=== PATIENT | female | born 1975 | race Caucasian/White ===

== ENCOUNTER → 2019-12-03 | Outpatient (CLI) | payer BC ==
[2019-12-03 17:46] LABS: Basophils % (A) 0 %; Eosinophils # (A) 0.1 k/uL (0-0.7); Eosinophils % (A) 1 %; HCT 34.1 % (34.0-46.0); Hypochromasia Moderate; Lymphocytes % (A) 26 %; MCH 24.6 pg (25.0-35.0); MCHC 29.4 g/dL (31.0-37.0); MCV 83.9 fL (80.0-100.0); Mean Platelet Volume 6.5; Monocytes # (A) 0.3 k/uL (0-1.0); Monocytes % (A) 4 %; Neutrophils % (A) 66 %; Platelet Count 435 k/uL (150-450); RBC 4.07 m/uL (3.80-5.40); RDW 14.6 % (11.5-15.5); WBC 7.6 k/uL (3.8-10.6)
[2019-12-03 17:54] LABS: ALT 6 U/L (4-34); AST 13 U/L (14-36); African American GFR (CKD) >90 (>60 ml/min/1.73 sqM); Albumin 3.3 g/dL (3.5-5.0); Alkaline Phosphatase 93 U/L (38-126); Anion Gap 7 mmol/L; Blood Urea Nitrogen 12 mg/dL (7-17); C Reactive Protein 76.7 mg/L (<10.0); Calcium 8.8 mg/dL (8.4-10.2); Carbon Dioxide 30 mmol/L (22-30); Chloride 101 mmol/L (98-107); Creatine Kinase 20 U/L (30-135); Globulin 3.3 g/dL; Glucose 103 mg/dL (74-99); LDH 327 U/L (313-618); Magnesium 2.1 mg/dL (1.6-2.3); Non-African American GFR(CKD) >90 (>60 ml/min/1.73 sqM); Sodium 138 mmol/L (137-145); Total Bilirubin 0.2 mg/dL (0.2-1.3); Total Protein 6.6 g/dL (6.3-8.2); Uric Acid 2.8 mg/dL (3.7-7.4)
[2019-12-03 18:07] LABS: Creatine Kinase MB <0.2 ng/mL (0.0-2.4); Troponin I <0.012 ng/mL (0.000-0.034)
[2019-12-03 18:08] LABS: T4, Free (Free Thyroxine) 0.86 ng/dL (0.78-2.19)
[2019-12-04 00:36] LABS: Hemoglobin A1C 5.1 % (4.0-6.0)
[2019-12-04 01:50] LABS: Rheumatoid Factor, Qnt 13 IU/mL (0-15)
[2019-12-04 01:59] LABS: Folate, Serum 9.3 ng/mL
[2019-12-04 06:35] LABS: DNA Double-Stranded POSITIVE (NEGATIVE)
[2019-12-04 23:36] LABS: % Iron Saturation 4.27 (12.00-45.00)
== END | disposition home or self-care (01) ==
LOC: LABWHC1 17:01
PROVIDERS: ATTEND Family Medicine
DX: D64.9 Anemia, unspecified (principal); R55 Syncope and collapse; M79.89 Other specified soft tissue disorders; L03.90 Cellulitis, unspecified; M25.473 Effusion, unspecified ankle; K50.90 Crohn's disease, unspecified, without complications; Z79.899 Other long term (current) drug therapy
CPT/HCPCS: 36415; 80053; 82306; 82533; 82550; 82553; 82607; 82728; 82746; 83036; 83540; 83550; 83615; 83735; 83880; 84439; 84443; 84484; 84550; 85025; 85379; 86038; 86039; 86140; 86225; 86431

== ENCOUNTER → 2019-12-05 | Outpatient (CLI) | payer BC ==
[2019-12-05 10:31] LABS: Chol/HDL Ratio 3.26; LDL Cholesterol,Calculated 59.6 mg/dL (0.0-131.0); VLDL Calculation 17.4 mg/dL (5.00-40.00)
[2019-12-05 17:15] LABS: Appearance,Urine Clear (Clear); Bilirubin,Urine Negative (Negative); Blood,Urine Negative (Negative); Color,Urine Yellow; Glucose,Urine (UA) Negative (Negative); Hyaline Casts,Urine 1 /lpf (0-2); Ketones,Urine Negative (Negative); Leukocyte Esterase,Urine Small (Negative); Mucus,Urine Many /hpf; Nitrite,Urine Negative (Negative); Protein,Urine Trace (Negative); RBC,Urine 1 /hpf (0-5); Specific Gravity,Urine 1.028 (1.001-1.035); Squamous Epithelial Cell,Urine 1 /hpf (0-4); Urobilinogen,Urine <2.0 mg/dL (<2.0); WBC,Urine 6 /hpf (0-5)
== END | disposition home or self-care (01) ==
LOC: LABWHC1 07:03
PROVIDERS: ATTEND Family Medicine
DX: K50.90 Crohn's disease, unspecified, without complications (principal); L03.90 Cellulitis, unspecified; R55 Syncope and collapse; M25.473 Effusion, unspecified ankle; M79.89 Other specified soft tissue disorders; Z79.899 Other long term (current) drug therapy
CPT/HCPCS: 36415; 80061; 81001; 87086

== ENCOUNTER → 2019-12-10 | Outpatient (CLI) | payer BC ==
--- NOTE | 2019-12-11 17:00 | ECHOF ---
Referral Reason:R55.9 syncope MEASUREMENTS -------- HEIGHT: 170.2 cm WEIGHT: 64.4 kg BP: 99/55 IVSd: 1.0 cm (0.6 - 1.1) LVIDd: 4.4 cm (3.9 - 5.3) LVPWd: 1.0 cm (0.6 - 1.1) IVSs: 1.3 cm LVIDs: 3.2 cm LVPWs: 1.4 cm LA Diam: 3.0 cm (2.7 - 3.8) RVIDd: 2.6 cm (< 3.3) LAESV Index (A-L): 14.79 ml/m Ao Diam: 3.1 cm (2.0 - 3.7) AV Cusp: 1.9 cm (1.5 - 2.6) MV E Edgard: 0.77 m/s MV DecT: 205 ms MV A Edgard: 0.48 m/s MV E/A Ratio: 1.59 RAP: 5.00 mmHg RVSP: 21.98 mmHg FINDINGS -------- Sinus rhythm. This was a technically good study. The left ventricular size is normal. Left ventricular wall thickness is normal. Overall left vent ricular systolic function is normal with, an EF between 55 - 60 %. The right ventricle is normal in size. Normal LA size by volume 22+/-6 ml/m2. The right atrium is normal in size. Interatrial and interventricular septum intact. The aortic valve is trileaflet and appears structurally normal. The mitral valve is normal. Mild tricuspid regurgitation present. Right ventricular systolic pressure is normal at < 35 mmHg. Trace/mild (physiologic) pulmonic regurgitation. The aortic root size is normal. Normal inferior vena cava with normal inspiratory collapse consistent with estimated right atrial pre ssure of 5 mmHg. There is no pericardial effusion. CONCLUSIONS -------- 1. Sinus rhythm. 2. This was a technically good study. 3. The left ventricular size is normal. 4. Left ventricular wall thickness is normal. 5. Overall left ventricular systolic function is normal with, an EF between 55 - 60 %. 6. The right ventricle is normal in size. 7. Normal LA size by volume 22+/-6 ml/m2. 8. The right atrium is normal in size. 9. Interatrial and interventricular septum intact. 10. The aortic valve is trileaflet and appears structurally normal. 11. The mitral valve is normal. 12. Mild tricuspid regurgitation present. 13. Right ventricular systolic pressure is normal at < 35 mmHg. 14. Trace/mild (physiologic) pulmonic regurgitation. 15. The aortic root size is normal. 16. Normal inferior vena cava with normal inspiratory collapse consistent with estimated right atrial pressure of 5 mmHg. 17. There is no pericardial effusion. [employer]MENT [employer] ATTORNEY: Effie Gregg RDCS
== END | disposition home or self-care (01) ==
LOC: RADECHMAIN 12:02
PROVIDERS: ATTEND Family Medicine
DX: I07.1 Rheumatic tricuspid insufficiency (principal); I37.1 Nonrheumatic pulmonary valve insufficiency; R00.0 Tachycardia, unspecified; R00.1 Bradycardia, unspecified
CPT/HCPCS: 93225; 93226; 93306

== ENCOUNTER 2019-12-17 11:06 | Day surgery (SDC) | payer BC ==
[2019-12-15 13:49] VITALS: BMI 21.9
[~2019-12-17 11:06] MED LIST: LACTATED RINGERS 1,000 ML IV SCH; LIDOCAINE 1% (10MG/ML) FOR IV START INTRADERMA PRN
[2019-12-17 11:25] VITALS: RESP 18; TEMP 97
[2019-12-17] MEDS ORDERED: PROPOFOL 10 MG/ML 20 ML VIAL IV ONE (11:56)
--- NOTE | 2019-12-17 12:11 | P.PCN ---
Date of Procedure: 12/17/19 Procedure(s) Performed: BRIEF HISTORY: Patient is a 44-year-old pleasant white female scheduled for an elective colonoscopy as a part of rectal bleeding and diarrhea for the last 2 years duration. She was seen by GI in [place] about a year ago and had a colonoscopy in December 2018 and was diagnosed with Crohn's colitis. She was treated with mesalamine with no help. She was recommended Biologics but somehow given a stat. In the meantime she'll continue to have persistent symptoms and hence she is here for a repeat colonoscopy and further management PROCEDURE PERFORMED: Colonoscopy with biopsy. PREOPERATIVE DIAGNOSIS: Chronic diarrhea/rectal bleeding and history of Crohn's colitis diagnosed in December 2018. IV sedation per Anesthesia. PROCEDURE: After informed consent was obtained, the patient, was brought into the endoscopy unit. IV sedation was administered by Anesthesia under continuous monitoring. Digital rectal examination was normal. Initially the Olympus CF-160 flexible video colonoscope was then inserted in the rectum, gradually advanced into the transverse colon and further advancement was not possible because of the strictured this area. The scope was removed pediatric colonoscope the rectum and gradually advanced to the transverse colon and despite multiple attempts I was not able to traverse the stricture in the mid transverse colon. Careful examination was performed as the scope was gradually being withdrawn. There was active colitis with stricture noted in the mid transverse colon with serpiginous ulcerations and biopsies were done from this area. There were segmental areas of colitis with ulcerations erythema and friability of the mucosa involving the descending colon 40-57 m from the anal verge, distal sigmoid colon and the distal rectum with normal appearing intervening mucosa and multiple biopsies were obtained from this area. Retroflexion was performed in the rectum and no lesions were seen. The patient tolerated the procedure well. IMPRESSION: Several areas of segmental colitis noted in the distal sigmoid colon, proximal ascending colon and mid transverse colon with tight transverse colon stricture. There are areas of deep serpiginous ulceration with erythema and friability of the mucosa in the involved segments of the colitis consistent with Crohn's colitis RECOMMENDATIONS: Findings of this examination were discussed with the patient as well as a family. She'll be seen in office in a week from now for further management.
[2019-12-17 12:31] VITALS: BP 93/61; PULSE 72
== END 2019-12-17 12:50 | disposition home or self-care (01) ==
LOC: ORWHC2ENDO 11:06
PROVIDERS: ATTEND Internal Medicine Gastroenterology
DX: K50.111 Crohn's disease of large intestine with rectal bleeding (principal); K56.699 Other intestinal obstruction unspecified as to partial versus complete obstruction; K63.5 Polyp of colon; R55 Syncope and collapse; D64.9 Anemia, unspecified; F17.210 Nicotine dependence, cigarettes, uncomplicated; Z79.899 Other long term (current) drug therapy; Z97.2 Presence of dental prosthetic device (complete) (partial)
CPT/HCPCS: 81025; 88305; 45380; J2704

== ENCOUNTER → 2019-12-25 | Outpatient (CLI) | payer BC ==
[2019-12-25 09:17] LABS: Basophils % (A) 0 %; Eosinophils # (A) 0.2 k/uL (0-0.7); Eosinophils % (A) 3 %; HCT 32.9 % (34.0-46.0); HGB 10.1 gm/dL (11.4-16.0); Hypochromasia Slight; Lymphocytes # (A) 1.7 k/uL (1.0-4.8); Lymphocytes % (A) 31 %; MCH 25.3 pg (25.0-35.0); MCHC 30.8 g/dL (31.0-37.0); MCV 82.1 fL (80.0-100.0); Mean Platelet Volume 6.5; Monocytes # (A) 0.4 k/uL (0-1.0); Monocytes % (A) 7 %; Neutrophils # (A) 3.2 k/uL (1.3-7.7); Neutrophils % (A) 58 %; Platelet Count 381 k/uL (150-450); RBC 4.01 m/uL (3.80-5.40); RDW 14.6 % (11.5-15.5); WBC 5.4 k/uL (3.8-10.6)
[2019-12-25 09:50] LABS: Erythrocyte Sedimentation Rate 82 mm/hr (0-20)
[2019-12-25 16:41] LABS: African American GFR (CKD) 134.5 (60.0-200.0); Albumin 3.8 g/dL (3.80-4.90); Albumin/Globulin Ratio 1.52 (1.60-3.17); Anion Gap 9.3 mmol/L (4.00-12.00); C Reactive Protein 6.5 mg/dL (0.0-0.8); Calcium 8.7 mg/dL (8.7-10.3); Carbon Dioxide 26.7 mmol/L (21.6-31.8); Globulin 2.5 g/dL (1.6-3.3); Non-African American GFR(CKD) 116.1 (60.0-200.0); Potassium 4.5 mmol/L (3.5-5.5); Total Bilirubin 0.1 mg/dL (0.3-1.2); Total Protein 6.3 g/dL (6.2-8.2)
[2019-12-25 17:57] LABS: Hepatitis B Surface AB- Quant 3.5 mIU/mL; Hepatitis B Surface Antibody Non-Reactive (Non-Reactive)
[2019-12-25 17:58] LABS: Hepatitis B Surface Antigen Non-Reactive (Non-Reactive)
== END ==
LOC: LABWHC1 08:04
PROVIDERS: ATTEND Internal Medicine Gastroenterology
DX: K50.10 Crohn's disease of large intestine without complications (principal)
CPT/HCPCS: 36415; 80053; 85025; 85652; 86140; 86480; 86704; 86706; 87340

== ENCOUNTER → 2019-12-26 | Outpatient (CLI) | payer BC ==
--- NOTE | 2019-12-26 14:37 | US ---
EXAMINATION TYPE: US venous doppler duplex LE RT DATE OF EXAM: 12/26/2019 2:02 PM COMPARISON: NONE CLINICAL HISTORY: Right ankle swelling/red R22.41. Right ankle swelling and redness. No hx DVT. SIDE PERFORMED: Right TECHNIQUE: The lower extremity deep venous system is examined utilizing real time linear array sonog maureen with graded compression, doppler sonography and color-flow sonography. VESSELS IMAGED: External Iliac Vein (EIV) Common Femoral Vein Deep Femoral Vein Greater Saphenous Vein * Femoral Vein Popliteal Vein Small Saphenous Vein * Proximal Calf Veins (* superficial vessels) Grayscale, color doppler, spectral doppler imaging performed of the deep veins of the right lower ext remity. There is normal flow, compressibility, vascular waveforms. Right Leg: Negative for DVT IMPRESSION: No sonographic evidence of deep venous thrombosis within the right lower extremity.
== END | disposition home or self-care (01) ==
LOC: RADUSWWP 13:44
PROVIDERS: ATTEND Family Medicine
DX: R22.41 Localized swelling, mass and lump, right lower limb (principal)

== ENCOUNTER → 2020-03-01 | Outpatient (CLI) | payer BC ==
[2020-03-01 16:36] LABS: ALT <8 U/L (8-44); AST 10 U/L (13-35); African American GFR (CKD) 134.5 (60.0-200.0); Albumin/Globulin Ratio 1.37 (1.60-3.17); Alkaline Phosphatase 96 U/L (41-126); Calcium 9.2 mg/dL (8.7-10.3); Carbon Dioxide 27.3 mmol/L (21.6-31.8); Chloride 107 mmol/L (96-109); Globulin 2.7 g/dL (1.6-3.3); Glucose 96 mg/dL (70-110); Non-African American GFR(CKD) 116.1 (60.0-200.0); Potassium 4.8 mmol/L (3.5-5.5); Sodium 146 mmol/L (135-145); Total Bilirubin 0.1 mg/dL (0.3-1.2); Total Protein 6.4 g/dL (6.2-8.2)
== END | disposition home or self-care (01) ==
LOC: LABWHC1 11:29
PROVIDERS: ATTEND Internal Medicine Gastroenterology
DX: K50.10 Crohn's disease of large intestine without complications (principal)
CPT/HCPCS: 36415; 80053; 85652; 86140

== ENCOUNTER → 2020-04-02 | Outpatient (CLI) | payer BC ==
[2020-04-02 13:40] LABS: Basophils % (A) 1 %; Eosinophils # (A) 0.2 k/uL (0-0.7); Eosinophils % (A) 2 %; HCT 32.7 % (34.0-46.0); HGB 9.4 gm/dL (11.4-16.0); Hypochromasia Marked; Lymphocytes # (A) 1.6 k/uL (1.0-4.8); Lymphocytes % (A) 20 %; MCH 24.2 pg (25.0-35.0); MCHC 28.8 g/dL (31.0-37.0); MCV 84.1 fL (80.0-100.0); Mean Platelet Volume 6.3; Monocytes # (A) 0.4 k/uL (0-1.0); Monocytes % (A) 5 %; Neutrophils # (A) 5.6 k/uL (1.3-7.7); Neutrophils % (A) 71 %; Platelet Count 592 k/uL (150-450); RBC 3.89 m/uL (3.80-5.40); RDW 14.8 % (11.5-15.5); WBC 7.9 k/uL (3.8-10.6)
[2020-04-02 15:40] LABS: Erythrocyte Sedimentation Rate 103 mm/hr (0-20)
[2020-04-02 18:37] LABS: ALT <8 U/L (8-44); AST 10 U/L (13-35); African American GFR (CKD) 133.6 (60.0-200.0); Albumin/Globulin Ratio 1.28 (1.60-3.17); Alkaline Phosphatase 117 U/L (41-126); Calcium 8.6 mg/dL (8.7-10.3); Carbon Dioxide 27.8 mmol/L (21.6-31.8); Chloride 102 mmol/L (96-109); Globulin 2.9 g/dL (1.6-3.3); Glucose 92 mg/dL (70-110); Non-African American GFR(CKD) 115.3 (60.0-200.0); Potassium 3.5 mmol/L (3.5-5.5); Sodium 138 mmol/L (135-145); Total Bilirubin 0.1 mg/dL (0.3-1.2); Total Protein 6.6 g/dL (6.2-8.2)
== END | disposition home or self-care (01) ==
LOC: LABWHC1 13:06
PROVIDERS: ATTEND Internal Medicine Gastroenterology
DX: K50.10 Crohn's disease of large intestine without complications (principal)
CPT/HCPCS: 36415; 80053; 85025; 85652; 86140

== ENCOUNTER 2020-04-08 13:32 | Inpatient (IN) | payer BC ==
[2020-04-08] MEDS ORDERED: SODIUM CHLORIDE 0.9% 1,000 ML IV STA (14:12)
[2020-04-08] MEDS ORDERED: MORPHINE SULFATE 4 MG/ML SYRINGE IV STA (14:12)
[2020-04-08] MEDS ORDERED: KETOROLAC 30 MG/ML 1 ML VIAL IVP STA (14:12)
[2020-04-08] MEDS ORDERED: ONDANSETRON 4 MG/2 ML VIAL IVP STA (14:12)
--- NOTE | 2020-04-08 14:29 | ED ---
Abdominal Pain HPI - General Source: patient Mode of arrival: ambulatory Limitations: no limitations <Evelyne Acuña - Last Filed: 04/08/20 16:03> <Bob Segal - Last Filed: 04/08/20 16:28> - General Chief Complaint: Abdominal Pain Stated Complaint: abd pain , has crohns Time Seen by Provider: 04/08/20 13:52 - History of Present Illness Initial Comments: Patient is a 45-year-old female, with history of Crohn's disease, presenting to the emergency Department with complaints of acute onset abdominal pain as well as nausea started yesterday. Patient states she follows with Dr. Kelley and was diagnosed with Crohn's a urine half ago. She states her symptoms have been controlled and she just started Remicade last week. Patient states this pain started yesterday and she started taking Tylenol to help but it did not touch the pain. Patient states she's never had abdominal pain like this before. She denies history of abdominal surgeries. She states she did have a bowel movement this morning and was normal for her. She denies any urinary complaints. She denies any recent fever or chills. She states her pain is a 10 out of 10 at this time and is located on the left lower quadrant. She states she does have some radiation into her left back as well. She also feels like her stomach feels a bit hard in the same area. She denies any chest pain, shortness of breath. She has no further complaints at this time. Upon arrival to the ER, her vitals are stable. (Evelyne Acuña) - Related Data Home Medications Medication Instructions Recorded Confirmed Ferrous Sulfate [Feosol] 325 mg PO DAILY 12/15/19 04/08/20 Acetaminophen Tab [Tylenol] 650 - 975 mg PO Q4H PRN 04/08/20 04/08/20 inFLIXimab [Remicade] 100 mg IV DIRECTED 04/08/20 04/08/20 Allergies Allergy/AdvReac Type Severity Reaction Status Date / Time No Known Allergies Allergy Verified 04/08/20 15:02 Review of Systems ROS Other: All systems not noted in ROS Statement are negative. <Evelyne Acuña - Last Filed: 04/08/20 16:03> ROS Other: All systems not noted in ROS Statement are negative. <Bob Segal - Last Filed: 04/08/20 16:28> ROS Statement: Those systems with pertinent positive or pertinent negative responses have been documented in the HPI. Past Medical History Additional Past Medical History / Comment(s): crohn's History of Any Multi-Drug Resistant Organisms: None Reported Past Surgical History: No Surgical Hx Reported Smoking Status: Never smoker Past Alcohol Use History: None Reported Past Drug Use History: None Reported <Evelyne Acuña - Last Filed: 04/08/20 16:03> General Exam Limitations: no limitations <Evelyne Acuña - Last Filed: 04/08/20 16:03> - General Exam Comments Initial Comments: GENERAL: Well-appearing, well-nourished and in mild distress secondary to pain. HEAD: Atraumatic, normocephalic. EYES: Pupils equal round and reactive to light, extraocular movements intact, sclera anicteric, conjunctiva are normal. ENT: TMs normal, nares patent, oropharynx clear without exudates. Moist mucous membranes. NECK: Normal range of motion, supple without lymphadenopathy or JVD. LUNGS: Breath sounds clear to auscultation bilaterally and equal. No wheezes rales or rhonchi. HEART: Regular rate and rhythm without murmurs, rubs or gallops. ABDOMEN: Tender to palpation in the left side of the abdomen, left lower quadrant. This area also appears to be mildly hardened on palpation when compared to the rest the abdomen. Hypoactive bowel sounds, guarding present. : Deferred EXTREMITIES: Normal range of motion, no pitting or edema. No clubbing or cyanosis. NEUROLOGICAL: Normal speech, normal gait. PSYCH: Normal mood, normal affect. SKIN: Warm, Dry, normal turgor, no rashes or lesions noted. (Evelyne Acuña) Course <Bob Segal - Last Filed: 04/08/20 16:28> Vital Signs 04/08/20 13:46 Temperature 97.6 F Pulse Rate 85 Respiratory 18 Rate Blood Pressure 97/65 O2 Sat by Pulse 98 Oximetry - Reevaluation(s) Reevaluation #1: 04/08/20 16:28 Patient's supervision: I did personally evaluate this case and patient patient will be admitted she does have evidence of colitis with a 4 cm abscess. I did discuss case with Dr. Wei. Surgery will be consulted. (Bob Segal) Medical Decision Making - Lab Data Result diagrams: 04/08/20 15:01 04/08/20 15:01 <Evelyne Acuña - Last Filed: 04/08/20 16:03> - Lab Data Result diagrams: 04/08/20 15:01 04/08/20 15:01 <Bob Segal - Last Filed: 04/08/20 16:28> - Medical Decision Making Patient is a 45-year-old female history of Crohn's presenting with acute onset left lower quadrant pain since yesterday. Her GI is Dr. Kelley. Vital signs are stable. Lab work shows hemoglobin 9.3 which is stable for the patient, lactic acid is low at 0.6, lipase is normal. Computed tomography scan of the abdomen shows a 4.2 cm thick-walled abscess in the left lower quadrant. There is some also underlying hepatosplenomegaly. Patient was given fluids, Toradol and morphine reports improvement in her symptoms. Patient will be admitted and started on IV antibiotics, dose of Zosyn was given. Patient is agreement this plan of care. (Evelyne Acuña) - Lab Data Lab Results 04/08/20 04/08/20 04/08/20 Range/Units 15:01 15:01 15:01 WBC 10.0 (3.8-10.6) k/uL RBC 3.69 L (3.80-5.40) m/uL Hgb 9.3 L (11.4-16.0) gm/dL Hct 31.2 L (34.0-46.0) % MCV 84.5 (80.0-100.0) fL MCH 25.1 (25.0-35.0) pg MCHC 29.7 L (31.0-37.0) g/dL RDW 14.4 (11.5-15.5) % Plt Count 603 H (150-450) k/uL Neutrophils % 78 % Lymphocytes % 15 % Monocytes % 4 % Eosinophils % 1 % Basophils % 0 % Neutrophils # 7.9 H (1.3-7.7) k/uL Lymphocytes # 1.5 (1.0-4.8) k/uL Monocytes # 0.4 (0-1.0) k/uL Eosinophils # 0.1 (0-0.7) k/uL Basophils # 0.0 (0-0.2) k/uL Hypochromasia Marked PT 11.1 (9.0-12.0) sec INR 1.1 (<1.2) APTT 28.9 (22.0-30.0) sec Sodium 137 (137-145) mmol/L Potassium 3.9 (3.5-5.1) mmol/L Chloride 102 (98-107) mmol/L Carbon Dioxide 27 (22-30) mmol/L Anion Gap 8 mmol/L BUN 10 (7-17) mg/dL Creatinine 0.38 L (0.52-1.04) mg/dL Est GFR (CKD-EPI)AfAm >90 (>60 ml/min/1.73 sqM) Est GFR (CKD-EPI)NonAf >90 (>60 ml/min/1.73 sqM) Glucose 97 (74-99) mg/dL Plasma Lactic Acid Carlos (0.7-2.0) mmol/L Calcium 8.7 (8.4-10.2) mg/dL Total Bilirubin 0.2 (0.2-1.3) mg/dL AST 10 L (14-36) U/L ALT <6 (4-34) U/L Alkaline Phosphatase 115 (38-126) U/L Total Protein 6.5 (6.3-8.2) g/dL Albumin 3.1 L (3.5-5.0) g/dL Amylase <30 L (30-110) U/L Lipase 10 L (23-300) U/L 06/25/20 Range/Units 15:01 WBC (3.8-10.6) k/uL RBC (3.80-5.40) m/uL Hgb (11.4-16.0) gm/dL Hct (34.0-46.0) % MCV (80.0-100.0) fL MCH (25.0-35.0) pg MCHC (31.0-37.0) g/dL RDW (11.5-15.5) % Plt Count (150-450) k/uL Neutrophils % % Lymphocytes % % Monocytes % % Eosinophils % % Basophils % % Neutrophils # (1.3-7.7) k/uL Lymphocytes # (1.0-4.8) k/uL Monocytes # (0-1.0) k/uL Eosinophils # (0-0.7) k/uL Basophils # (0-0.2) k/uL Hypochromasia PT (9.0-12.0) sec INR (<1.2) APTT (22.0-30.0) sec Sodium (137-145) mmol/L Potassium (3.5-5.1) mmol/L Chloride (98-107) mmol/L Carbon Dioxide (22-30) mmol/L Anion Gap mmol/L BUN (7-17) mg/dL Creatinine (0.52-1.04) mg/dL Est GFR (CKD-EPI)AfAm (>60 ml/min/1.73 sqM) Est GFR (CKD-EPI)NonAf (>60 ml/min/1.73 sqM) Glucose (74-99) mg/dL Plasma Lactic Acid Carlos 0.6 L (0.7-2.0) mmol/L Calcium (8.4-10.2) mg/dL Total Bilirubin (0.2-1.3) mg/dL AST (14-36) U/L ALT (4-34) U/L Alkaline Phosphatase (38-126) U/L Total Protein (6.3-8.2) g/dL Albumin (3.5-5.0) g/dL Amylase (30-110) U/L Lipase (23-300) U/L Disposition Decision Date: 04/08/20 Decision Time: 16:06 <Evelyne Acuña - Last Filed: 04/08/20 16:03> <Bob Segal - Last Filed: 04/08/20 16:28> Clinical Impression: LLQ abdominal pain, Left lower quadrant abdominal abscess Disposition: ADMITTED IP TO THIS [facility] Condition: Stable Referrals: Albertina Grider MD [Primary Care Provider] - 1-2 days
[2020-04-08 15:17] LABS: Basophils % (A) 0 %; Eosinophils # (A) 0.1 k/uL (0-0.7); Eosinophils % (A) 1 %; HCT 31.2 % (34.0-46.0); HGB 9.3 gm/dL (11.4-16.0); Hypochromasia Marked; Lymphocytes # (A) 1.5 k/uL (1.0-4.8); Lymphocytes % (A) 15 %; MCH 25.1 pg (25.0-35.0); MCHC 29.7 g/dL (31.0-37.0); MCV 84.5 fL (80.0-100.0); Mean Platelet Volume 6.3; Monocytes # (A) 0.4 k/uL (0-1.0); Monocytes % (A) 4 %; Neutrophils # (A) 7.9 k/uL (1.3-7.7); Neutrophils % (A) 78 %; Platelet Count 603 k/uL (150-450); RBC 3.69 m/uL (3.80-5.40); RDW 14.4 % (11.5-15.5)
[2020-04-08 15:21] LABS: ALT <6 U/L (4-34); AST 10 U/L (14-36); African American GFR (CKD) >90 (>60 ml/min/1.73 sqM); Albumin 3.1 g/dL (3.5-5.0); Alkaline Phosphatase 115 U/L (38-126); Amylase <30 U/L (30-110); Anion Gap 8 mmol/L; Blood Urea Nitrogen 10 mg/dL (7-17); Calcium 8.7 mg/dL (8.4-10.2); Carbon Dioxide 27 mmol/L (22-30); Chloride 102 mmol/L (98-107); Glucose 97 mg/dL (74-99); Non-African American GFR(CKD) >90 (>60 ml/min/1.73 sqM); Potassium 3.9 mmol/L (3.5-5.1); Sodium 137 mmol/L (137-145); Total Bilirubin 0.2 mg/dL (0.2-1.3); Total Protein 6.5 g/dL (6.3-8.2)
[2020-04-08 15:24] LABS: INR 1.1 (<1.2); Partial Thromboplastin Time 28.9 sec (22.0-30.0); Prothrombin Time 11.1 sec (9.0-12.0)
--- NOTE | 2020-04-08 15:49 | CT ---
EXAMINATION TYPE: CT abdomen pelvis w con DATE OF EXAM: 04/08/2020 HISTORY: Abdominal pain. Left lower quadrant pain rule out diverticulitis. CT DLP: 688.8mGycm Automated Exposure Control for Dose Reduction was Utilized. CONTRAST: CT scan of the abdomen and pelvis is performed without oral with IV Contrast, patient injected with 1 00ml mL of Isovue 300. COMPARISON: None. FINDINGS: LUNG BASES: No significant abnormality is appreciated. LIVER/GB: Hepatomegaly. Facial subcentimeter hypodense lesion too small to further characterize. Find ings proven benign. PANCREAS: There is 5 mm low dense lesion central body of pancreas just anterior to the confluence of splenic vein and SMV axial image 28. SPLEEN: Mild splenomegaly at 13.9 cm long axis coronal image 43. ADRENALS: There is 2.7 x 2.1 cm slightly low dense right adrenal mass with punctate calcific focus ax ial image 22, Hounsfield units greater than 10 measuring 66. KIDNEYS: No significant abnormality is s een. BOWEL: Suboptimal evaluation of bowel without enteric contrast. Stomach poorly distended and suboptim ally evaluated. No suspicious small or large bowel dilatation. Suspect appendix measuring upper limit s of normal with hyperdense material possibly ingested food product. No surrounding inflammatory perales ge in the right pelvis. There is mild 2 moderate wall thickening in the proximal to mid transverse colon. There is more zulema re wall thickening beginning in the distal transverse colon up to the splenic flexure. There is addit ional focus of moderate to severe wall thickening through the left colon extending to the rectum. Mos t prominent inflammatory change identified in the left lower quadrant. There is thick walled irregula r debris filled extraluminal 4.2 x 3.6 cm mass suspicious for abscess anteriorly on axial image 48. N o free air. Local mass effect with deviation of small bowel loops towards the midline. No significant diverticular disease appreciated. Terminal ileum is difficult to assess due to poor di stention at this level in the right pelvis. UTERUS/ADNEXA: Slightly retroverted uterus. Both ovaries seen and not enlarged. Trace free fluid post erior to right ovary axial image 68 LYMPH NODES: No greater than 1cm abdominal or pelvic lymph nodes are appreciated. OSSEOUS STRUCTURES: No significant abnormality is seen. OTHER: No significant additional abnormality is seen. IMPRESSION: 1. Multifocal colitis with involvement of the mid transverse colon to the splenic flexure and a longe r segment involving the proximal left colon from the rectum. Most prominent inflammatory changes in t he left lower quadrant near the distal transverse colon which has a inferior course which is favored source for a 4.2 cm irregular thick-walled abscess anteriorly at this level. Very little free fluid w ithin the abscess which has more complex and fecal material and thickened irregular septated alegre. 2. Underlying hepatosplenomegaly noted which may warrant further nonemergent clinical workup. Similar consider further nonemergent workup for 5 mm low dense lesion central pancreatic body and nonspecifi c 2.7 cm right adrenal mass.
[2020-04-08] MEDS ORDERED: PIPERACILLIN-TAZOBACTAM 3.375 GM in SODIUM CHLORIDE 0.9% 100 ML IVPB STA (16:03)
[2020-04-08] MEDS ORDERED: ONDANSETRON 4 MG/2 ML VIAL IVP PRN (16:06)
[2020-04-08] MEDS ORDERED: NALOXONE 0.4 MG/ML 1 ML VIAL IV PRN ×2 (16:06→17:38)
[2020-04-08 16:17] LABS: Appearance,Urine Clear (Clear); Bilirubin,Urine Negative (Negative); Blood,Urine Trace (Negative); Color,Urine Yellow; Glucose,Urine (UA) Negative (Negative); Ketones,Urine Negative (Negative); Leukocyte Esterase,Urine Trace (Negative); Mucus,Urine Many /hpf; Nitrite,Urine Negative (Negative); PH, Urine 6.5 (5.0-8.0); Protein,Urine 1+ (Negative); RBC,Urine 9 /hpf (0-5); Squamous Epithelial Cell,Urine 16 /hpf (0-4); Urobilinogen,Urine <2.0 mg/dL (<2.0); WBC,Urine 11 /hpf (0-5)
[2020-04-08 16:42] LABS: Specific Gravity,Urine >1.050 (1.001-1.035)
[2020-04-08] MEDS: MORPHINE SULFATE 4 MG/ML SYRINGE IV PRN (16:42)
[2020-04-08] MEDS: SODIUM CHLORIDE 0.9% 1,000 ML IV SCH (16:56)
--- NOTE | 2020-04-08 17:50 | P.HPIM ---
History of Present Illness H&P Date: 04/08/20 Chief Complaint: abdominal pain 45-year-old female, with history of Crohn's disease, presenting to the emergency Department with complaints of acute onset abdominal pain as well as nausea that started yesterday. Pain is located on the left side of the abdomen and radiates to the left lower back. No vomiting, no diarrhea. Last bowel movement was today. No fevers but she has chills. She states that she always has chills with Crohn's disease. She was diagnosed with Crohn about a year and a half ago. She just started taking Remicade last week. She does not take any other medication for Crohn's disease. She denies history of abdominal surgeries. She denies any chest pain, shortness of breath. Evaluation in the emergency department revealed normal vital signs. Computed tomography scan of the abdomen and pelvis showed colitis involving the transverse and the descending colon with an abscess of about 4.2 cm in diameter. Patient was admitted for further evaluation and treatment. Review of Systems Complete review of system performed, pertinent positives per HPI, otherwise negative Past Medical History Additional Past Medical History / Comment(s): crohn's History of Any Multi-Drug Resistant Organisms: None Reported Past Surgical History: No Surgical Hx Reported Smoking Status: Never smoker Past Alcohol Use History: None Reported Past Drug Use History: None Reported Medications and Allergies Home Medications Medication Instructions Recorded Confirmed Type Ferrous Sulfate [Feosol] 325 mg PO DAILY 12/15/19 04/08/20 History Acetaminophen Tab [Tylenol] 650 - 975 mg PO Q4H PRN 04/08/20 04/08/20 History inFLIXimab [Remicade] 100 mg IV DIRECTED 04/08/20 04/08/20 History Allergies Allergy/AdvReac Type Severity Reaction Status Date / Time No Known Allergies Allergy Verified 04/08/20 15:02 Physical Exam Vitals: Vital Signs Temp Pulse Resp BP Pulse Ox 04/08/20 13:46 97.6 F 85 18 97/65 98 Intake and Output 04/08/20 04/08/20 04/08/20 06:59 14:59 22:59 Other: Weight 63.503 kg Constitutional: No acute distress, conversant, pleasant Eyes:Anicteric sclerae, moist conjunctiva, no lid-lag, PERRLA, ENMT: Oropharynx clear, no erythema, exudates Neck: Supple, FROM, no masses, or JVD, No carotid bruits, No thyromegaly Lungs: Clear to auscultation, Clear to percussion, Normal respiratory effort, no accessory muscle use Cardiovascular: Heart regular in rate and rhythm, No murmurs, gallops, or rubs, No peripheral edema Abdominal: Soft, severely tender on the left side, no guarding, rebound or rigidity, Normoactive bowel sounds, No hepatomegaly, No splenomegaly, No palpable mass Skin: Normal temperature, tone, texture, turgor, no induration, No subcutaneous nodules, No rash, lesions, No ulcers Extremities: No digital cyanosis, No clubbing, Pedal pulses intact and symmetrical, Radial pulses intact and symmetrical, No calf tenderness Psychiatric: Alert and oriented to person, place and time, appropriate affect, intact judgement Neuro: Muscles Strength 5/5 in all 4 extremities, Sensation to light touch grossly present throughout, Cranial nerves II-XII grossly intact, no focal sensory deficits Results CBC & Chem 7: 04/08/20 15:01 04/08/20 15:01 Labs: Abnormal Lab Results - Last 24 Hours (Table) 04/08/20 04/08/20 04/08/20 Range/Units 15:01 15:01 15:01 RBC 3.69 L (3.80-5.40) m/uL Hgb 9.3 L (11.4-16.0) gm/dL Hct 31.2 L (34.0-46.0) % MCHC 29.7 L (31.0-37.0) g/dL Plt Count 603 H (150-450) k/uL Neutrophils # 7.9 H (1.3-7.7) k/uL Creatinine 0.38 L (0.52-1.04) mg/dL Plasma Lactic Acid Carlos 0.6 L (0.7-2.0) mmol/L AST 10 L (14-36) U/L Albumin 3.1 L (3.5-5.0) g/dL Amylase <30 L (30-110) U/L Lipase 10 L (23-300) U/L Ur Specific [place] (1.001-1.035) Urine Protein (Negative) Urine Blood (Negative) Ur Leukocyte Esterase (Negative) Urine RBC (0-5) /hpf Urine WBC (0-5) /hpf Ur Squamous Epith Cells (0-4) /hpf Urine Mucus (None) /hpf 04/08/20 Range/Units 16:05 RBC (3.80-5.40) m/uL Hgb (11.4-16.0) gm/dL Hct (34.0-46.0) % MCHC (31.0-37.0) g/dL Plt Count (150-450) k/uL Neutrophils # (1.3-7.7) k/uL Creatinine (0.52-1.04) mg/dL Plasma Lactic Acid Carlos (0.7-2.0) mmol/L AST (14-36) U/L Albumin (3.5-5.0) g/dL Amylase (30-110) U/L Lipase (23-300) U/L Ur Specific [place] >1.050 H (1.001-1.035) Urine Protein 1+ H (Negative) Urine Blood Trace H (Negative) Ur Leukocyte Esterase Trace H (Negative) Urine RBC 9 H (0-5) /hpf Urine WBC 11 H (0-5) /hpf Ur Squamous Epith Cells 16 H (0-4) /hpf Urine Mucus Many H (None) /hpf Assessment and Plan Plan: Crohn disease exacerbation/colitis I discussed that with Dr. Pompa, who does not favor treatment with steroids at this point. Nothing by mouth IV fluids Symptomatic pain treatment Abdominal abscess Consult surgery for possible drainage Monitor temperature curve Blood cultures Patient admitted as inpatient, expected length of stay more than 2 midnights
[2020-04-08] MEDS: KETOROLAC 30 MG/ML 1 ML VIAL IVP PRN (22:47)
[2020-04-09] MEDS: PIPERACILLIN-TAZOBACTAM 3.375 GM in SODIUM CHLORIDE 0.9% 100 ML IVPB SCH ×3 (01:23→15:49)
[2020-04-09 06:20] LABS: Basophils % (A) 0 %; Eosinophils # (A) 0.1 k/uL (0-0.7); Eosinophils % (A) 1 %; HCT 27.3 % (34.0-46.0); Hypochromasia Marked; Lymphocytes # (A) 2.3 k/uL (1.0-4.8); Lymphocytes % (A) 22 %; MCH 24.9 pg (25.0-35.0); MCHC 29.1 g/dL (31.0-37.0); MCV 85.3 fL (80.0-100.0); Mean Platelet Volume 6.4; Monocytes # (A) 0.5 k/uL (0-1.0); Monocytes % (A) 4 %; Neutrophils # (A) 7.3 k/uL (1.3-7.7); Neutrophils % (A) 71 %; Platelet Count 486 k/uL (150-450); RDW 14.8 % (11.5-15.5); WBC 10.3 k/uL (3.8-10.6)
[2020-04-09 06:35] LABS: ALT <6 U/L (4-34); AST 11 U/L (14-36); African American GFR (CKD) >90 (>60 ml/min/1.73 sqM); Albumin 2.6 g/dL (3.5-5.0); Alkaline Phosphatase 90 U/L (38-126); Anion Gap 7 mmol/L; Blood Urea Nitrogen 9 mg/dL (7-17); Calcium 7.9 mg/dL (8.4-10.2); Carbon Dioxide 24 mmol/L (22-30); Chloride 104 mmol/L (98-107); Glucose 74 mg/dL (74-99); Non-African American GFR(CKD) >90 (>60 ml/min/1.73 sqM); Potassium 3.4 mmol/L (3.5-5.1); Sodium 135 mmol/L (137-145); Total Bilirubin 0.3 mg/dL (0.2-1.3); Total Protein 5.6 g/dL (6.3-8.2)
[2020-04-09] MEDS: KETOROLAC 30 MG/ML 1 ML VIAL IVP PRN ×3 (07:14→18:51)
[2020-04-09] MEDS ORDERED: POTASSIUM CHLORIDE ER 20 MEQ TAB.ER PO STA (08:03)
[2020-04-09] MEDS: SODIUM CHLORIDE 0.9% 1,000 ML IV SCH (08:18)
--- NOTE | 2020-04-09 10:11 | P.GSCN ---
History of Present Illness Consult date: 04/09/20 Reason for Consult: Crohn's disease, abdominal abscess History of present illness: Is a 45-year-old female with known history of Crohn's disease. Patient's had a four-day history of abdominal pain. She was seen emergently gastric her CAT sca n shows evidence of enteritis and intra-abdominal abscess. She has been nothing by mouth and then placed on oIV antibiotic. Patient is pain in the left side. Past Medical History Additional Past Medical History / Comment(s): crohn's History of Any Multi-Drug Resistant Organisms: None Reported Past Surgical History: No Surgical Hx Reported Additional Past Surgical History / Comment(s): colonoscopy Past Anesthesia/Blood Transfusion Reactions: No Reported Reaction Past Psychological History: No Psychological Hx Reported Smoking Status: Never smoker Past Alcohol Use History: None Reported Past Drug Use History: None Reported - Past Family History Mother History Unknown: Yes Medications and Allergies Home Medications Medication Instructions Recorded Confirmed Type Ferrous Sulfate [Feosol] 325 mg PO DAILY 12/15/19 04/08/20 History Acetaminophen Tab [Tylenol] 650 - 975 mg PO Q4H PRN 04/08/20 04/08/20 History inFLIXimab [Remicade] 100 mg IV DIRECTED 04/08/20 04/08/20 History Allergies Allergy/AdvReac Type Severity Reaction Status Date / Time No Known Allergies Allergy Verified 04/08/20 15:02 Surgical - Exam Vital Signs Temp Pulse Resp BP Pulse Ox 97.6 F 85 18 97/65 98 04/08/20 13:46 04/08/20 13:46 04/08/20 13:46 04/08/20 13:46 04/08/20 13:46 - General well developed, no distress - Eyes PERRL - ENT normal pinna - Neck no masses - Respiratory normal expansion - Cardiovascular Rhythm: regular - Abdomen Left-sided abdominal pain Abdomen: soft Results - Labs 04/09/20 06:08 04/09/20 06:08 Abnormal Lab Results - Last 24 Hours (Table) 04/08/20 04/08/20 04/08/20 Range/Units 15:01 15:01 15:01 RBC 3.69 L (3.80-5.40) m/uL Hgb 9.3 L (11.4-16.0) gm/dL Hct 31.2 L (34.0-46.0) % MCH (25.0-35.0) pg MCHC 29.7 L (31.0-37.0) g/dL Plt Count 603 H (150-450) k/uL Neutrophils # 7.9 H (1.3-7.7) k/uL Sodium (137-145) mmol/L Potassium (3.5-5.1) mmol/L Creatinine 0.38 L (0.52-1.04) mg/dL Plasma Lactic Acid Carlos 0.6 L (0.7-2.0) mmol/L Calcium (8.4-10.2) mg/dL AST 10 L (14-36) U/L C-Reactive Protein (<10.0) mg/L Total Protein (6.3-8.2) g/dL Albumin 3.1 L (3.5-5.0) g/dL Amylase <30 L (30-110) U/L Lipase 10 L (23-300) U/L Ur Specific [place] (1.001-1.035) Urine Protein (Negative) Urine Blood (Negative) Ur Leukocyte Esterase (Negative) Urine RBC (0-5) /hpf Urine WBC (0-5) /hpf Ur Squamous Epith Cells (0-4) /hpf Urine Mucus (None) /hpf 04/08/20 04/09/20 04/09/20 Range/Units 16:05 06:08 06:08 RBC 3.20 L (3.80-5.40) m/uL Hgb 8.0 L (11.4-16.0) gm/dL Hct 27.3 L (34.0-46.0) % MCH 24.9 L (25.0-35.0) pg MCHC 29.1 L (31.0-37.0) g/dL Plt Count 486 H (150-450) k/uL Neutrophils # (1.3-7.7) k/uL Sodium 135 L (137-145) mmol/L Potassium 3.4 L (3.5-5.1) mmol/L Creatinine 0.40 L (0.52-1.04) mg/dL Plasma Lactic Acid Carlos (0.7-2.0) mmol/L Calcium 7.9 L (8.4-10.2) mg/dL AST 11 L (14-36) U/L C-Reactive Protein (<10.0) mg/L Total Protein 5.6 L (6.3-8.2) g/dL Albumin 2.6 L (3.5-5.0) g/dL Amylase (30-110) U/L Lipase (23-300) U/L Ur Specific [place] >1.050 H (1.001-1.035) Urine Protein 1+ H (Negative) Urine Blood Trace H (Negative) Ur Leukocyte Esterase Trace H (Negative) Urine RBC 9 H (0-5) /hpf Urine WBC 11 H (0-5) /hpf Ur Squamous Epith Cells 16 H (0-4) /hpf Urine Mucus Many H (None) /hpf 04/09/20 Range/Units 06:08 RBC (3.80-5.40) m/uL Hgb (11.4-16.0) gm/dL Hct (34.0-46.0) % MCH (25.0-35.0) pg MCHC (31.0-37.0) g/dL Plt Count (150-450) k/uL Neutrophils # (1.3-7.7) k/uL Sodium (137-145) mmol/L Potassium (3.5-5.1) mmol/L Creatinine (0.52-1.04) mg/dL Plasma Lactic Acid Carlos (0.7-2.0) mmol/L Calcium (8.4-10.2) mg/dL AST (14-36) U/L C-Reactive Protein 268.0 H (<10.0) mg/L Total Protein (6.3-8.2) g/dL Albumin (3.5-5.0) g/dL Amylase (30-110) U/L Lipase (23-300) U/L Ur Specific [place] (1.001-1.035) Urine Protein (Negative) Urine Blood (Negative) Ur Leukocyte Esterase (Negative) Urine RBC (0-5) /hpf Urine WBC (0-5) /hpf Ur Squamous Epith Cells (0-4) /hpf Urine Mucus (None) /hpf Microbiology - Last 24 Hours (Table) 04/08/20 16:05 Urine Culture - Preliminary Urine,Voided Diabetes panel 04/08/20 04/09/20 Range/Units 15:01 06:08 Sodium 137 135 L (137-145) mmol/L Potassium 3.9 3.4 L (3.5-5.1) mmol/L Chloride 102 104 (98-107) mmol/L Carbon Dioxide 27 24 (22-30) mmol/L BUN 10 9 (7-17) mg/dL Creatinine 0.38 L 0.40 L (0.52-1.04) mg/dL Glucose 97 74 (74-99) mg/dL Calcium 8.7 7.9 L (8.4-10.2) mg/dL AST 10 L 11 L (14-36) U/L ALT <6 <6 (4-34) U/L Alkaline Phosphatase 115 90 (38-126) U/L Total Protein 6.5 5.6 L (6.3-8.2) g/dL Albumin 3.1 L 2.6 L (3.5-5.0) g/dL Calcium panel 04/08/20 04/09/20 Range/Units 15:01 06:08 Calcium 8.7 7.9 L (8.4-10.2) mg/dL Phosphorus 4.0 (2.5-4.5) mg/dL Albumin 3.1 L 2.6 L (3.5-5.0) g/dL Pituitary panel 04/08/20 04/09/20 Range/Units 15:01 06:08 Sodium 137 135 L (137-145) mmol/L Potassium 3.9 3.4 L (3.5-5.1) mmol/L Chloride 102 104 (98-107) mmol/L Carbon Dioxide 27 24 (22-30) mmol/L BUN 10 9 (7-17) mg/dL Creatinine 0.38 L 0.40 L (0.52-1.04) mg/dL Glucose 97 74 (74-99) mg/dL Calcium 8.7 7.9 L (8.4-10.2) mg/dL Adrenal panel 04/08/20 04/09/20 Range/Units 15:01 06:08 Sodium 137 135 L (137-145) mmol/L Potassium 3.9 3.4 L (3.5-5.1) mmol/L Chloride 102 104 (98-107) mmol/L Carbon Dioxide 27 24 (22-30) mmol/L BUN 10 9 (7-17) mg/dL Creatinine 0.38 L 0.40 L (0.52-1.04) mg/dL Glucose 97 74 (74-99) mg/dL Calcium 8.7 7.9 L (8.4-10.2) mg/dL Total Bilirubin 0.2 0.3 (0.2-1.3) mg/dL AST 10 L 11 L (14-36) U/L ALT <6 <6 (4-34) U/L Alkaline Phosphatase 115 90 (38-126) U/L Total Protein 6.5 5.6 L (6.3-8.2) g/dL Albumin 3.1 L 2.6 L (3.5-5.0) g/dL - Imaging CT scan - abdomen: report reviewed (computed tomography scan shows multiple colitis with involvement of the mid transverse colon to splenic flexure and left colon to the rectum. There appears to be an abscess measuring 4.2 cm near the distal transverse colon) Assessment and Plan Assessment: exacerbation of Crohn's disease with abscess. Patient will receive IV antibiotics. We will plan on repeat CAT scan in 72 hours to evaluate her abscess.
--- NOTE | 2020-04-09 11:45 | P.PN ---
Subjective Progress Note Date: 04/09/20 Principal diagnosis: Abdominal pain Patient states that she is still having left-sided abdominal pain but is well- controlled with the pain medication. No nausea or vomiting. No fevers, no diarrhea. Objective - Vital Signs Vital signs: Vital Signs Temp 98.1 F 04/09/20 08:20 Pulse 89 04/09/20 08:20 Resp 16 04/09/20 08:20 BP 81/51 04/09/20 08:20 Pulse Ox 95 04/09/20 08:20 Intake & Output 04/08/20 04/09/20 04/09/20 18:59 06:59 18:59 Intake Total 0 Balance 0 Weight 63.503 kg Intake: Oral 0 - Exam Constitutional: No acute distress, conversant, pleasant Eyes:Anicteric sclerae, moist conjunctiva, no lid-lag, PERRLA, ENMT: Oropharynx clear, no erythema, exudates Neck: Supple, FROM, no masses, or JVD, No carotid bruits, No thyromegaly Lungs: Clear to auscultation, Clear to percussion, Normal respiratory effort, no accessory muscle use Cardiovascular: Heart regular in rate and rhythm, No murmurs, gallops, or rubs, No peripheral edema Abdominal: Soft, abdomen is nontender on the left side, no guarding, rebound or rigidity, Normoactive bowel sounds, No hepatomegaly, No splenomegaly, No palpable mass Skin: Normal temperature, tone, texture, turgor, no induration, No subcutaneous nodules, No rash, lesions, No ulcers Extremities: No digital cyanosis, No clubbing, Pedal pulses intact and symmetrical, Radial pulses intact and symmetrical, No calf tenderness Psychiatric: Alert and oriented to person, place and time, appropriate affect, intact judgement Neuro: Muscles Strength 5/5 in all 4 extremities, Sensation to light touch grossly present throughout, Cranial nerves II-XII grossly intact, no focal sensory deficits - Labs CBC & Chem 7: 04/09/20 06:08 04/09/20 06:08 Labs: Abnormal Lab Results - Last 24 Hours (Table) 04/08/20 04/08/20 04/08/20 Range/Units 15:01 15:01 15:01 RBC 3.69 L (3.80-5.40) m/uL Hgb 9.3 L (11.4-16.0) gm/dL Hct 31.2 L (34.0-46.0) % MCH (25.0-35.0) pg MCHC 29.7 L (31.0-37.0) g/dL Plt Count 603 H (150-450) k/uL Neutrophils # 7.9 H (1.3-7.7) k/uL Sodium (137-145) mmol/L Potassium (3.5-5.1) mmol/L Creatinine 0.38 L (0.52-1.04) mg/dL Plasma Lactic Acid Carlos 0.6 L (0.7-2.0) mmol/L Calcium (8.4-10.2) mg/dL AST 10 L (14-36) U/L C-Reactive Protein (<10.0) mg/L Total Protein (6.3-8.2) g/dL Albumin 3.1 L (3.5-5.0) g/dL Amylase <30 L (30-110) U/L Lipase 10 L (23-300) U/L Ur Specific [place] (1.001-1.035) Urine Protein (Negative) Urine Blood (Negative) Ur Leukocyte Esterase (Negative) Urine RBC (0-5) /hpf Urine WBC (0-5) /hpf Ur Squamous Epith Cells (0-4) /hpf Urine Mucus (None) /hpf 04/08/20 04/09/20 04/09/20 Range/Units 16:05 06:08 06:08 RBC 3.20 L (3.80-5.40) m/uL Hgb 8.0 L (11.4-16.0) gm/dL Hct 27.3 L (34.0-46.0) % MCH 24.9 L (25.0-35.0) pg MCHC 29.1 L (31.0-37.0) g/dL Plt Count 486 H (150-450) k/uL Neutrophils # (1.3-7.7) k/uL Sodium 135 L (137-145) mmol/L Potassium 3.4 L (3.5-5.1) mmol/L Creatinine 0.40 L (0.52-1.04) mg/dL Plasma Lactic Acid [place] (0.7-2.0) mmol/L Calcium 7.9 L (8.4-10.2) mg/dL AST 11 L (14-36) U/L C-Reactive Protein (<10.0) mg/L Total Protein 5.6 L (6.3-8.2) g/dL Albumin 2.6 L (3.5-5.0) g/dL Amylase (30-110) U/L Lipase (23-300) U/L Ur Specific [place] >1.050 H (1.001-1.035) Urine Protein 1+ H (Negative) Urine Blood Trace H (Negative) Ur Leukocyte Esterase Trace H (Negative) Urine RBC 9 H (0-5) /hpf Urine WBC 11 H (0-5) /hpf Ur Squamous Epith Cells 16 H (0-4) /hpf Urine Mucus Many H (None) /hpf 04/09/20 Range/Units 06:08 RBC (3.80-5.40) m/uL Hgb (11.4-16.0) gm/dL Hct (34.0-46.0) % MCH (25.0-35.0) pg MCHC (31.0-37.0) g/dL Plt Count (150-450) k/uL Neutrophils # (1.3-7.7) k/uL Sodium (137-145) mmol/L Potassium (3.5-5.1) mmol/L Creatinine (0.52-1.04) mg/dL Plasma Lactic Acid [place] (0.7-2.0) mmol/L Calcium (8.4-10.2) mg/dL AST (14-36) U/L C-Reactive Protein 268.0 H (<10.0) mg/L Total Protein (6.3-8.2) g/dL Albumin (3.5-5.0) g/dL Amylase (30-110) U/L Lipase (23-300) U/L Ur Specific [place] (1.001-1.035) Urine Protein (Negative) Urine Blood (Negative) Ur Leukocyte Esterase (Negative) Urine RBC (0-5) /hpf Urine WBC (0-5) /hpf Ur Squamous Epith Cells (0-4) /hpf Urine Mucus (None) /hpf Microbiology - Last 24 Hours (Table) 04/08/20 16:05 Urine Culture - Preliminary Urine,Voided Assessment and Plan Plan: Crohn disease exacerbation/colitis Started on clear liquid diet IV fluids Symptomatic pain treatment GI following Check inflammatory markers ESR and CRP Abdominal abscess Seen by general surgery, plan to repeat computed tomography scan in 72 hours to evaluate the abscess. Marlon Blood cultures
[2020-04-09] MEDS: MORPHINE SULFATE 4 MG/ML SYRINGE IV PRN ×2 (12:35→15:47)
--- NOTE | 2020-04-09 15:55 | CONS ---
CONSULTATION DATE OF DICTATION: 04/09/2020 REASON FOR CONSULTATION: Exacerbation of Crohn's disease with abdominal abscess. HISTORY OF PRESENT ILLNESS: The patient is a 45-year-old pleasant white female who was diagnosed with Crohn's disease in December of 2018 in the [place] area. She was seen by me in December of this year, at which time she had a colonoscopy done on an outpatient basis that showed severe active colitis involving the entire colon with a tight transverse colon stricture. The patient was subsequently treated with a short course of steroids and has been placed on oral mesalamine, which she did not tolerate. Recently she was started on Remicade infusions; and in fact she received the first infusion of Remicade a week ago. She is having lower left-sided abdominal pain radiating to the left back for the last 3-4 days' duration. She denies any fever, chills or night sweats. She has 1 or 2 bowel movements daily. No blood or mucus in the stool. The pain continued to progressively get worse. She came into the emergency room yesterday and was noted to have active colitis involving the transverse and descending colon with a 4.2 cm abscess in the left side of the abdomen, and hence we are consulted for further evaluation. The patient this morning continues to have abdominal pain. She remains n.p.o. She never had abscess in the past. PAST MEDICAL HISTORY: Active Crohn's colitis diagnosed in December of 2018. MEDICATIONS: Remicade infusion, iron sulfate, acetaminophen. ALLERGIES: NONE. SOCIAL HISTORY: No smoking. No alcohol use. FAMILY HISTORY: Unremarkable. REVIEW OF SYSTEMS: CARDIOPULMONARY: No chest pain or shortness of breath. GENITOURINARY: No dysuria or hematuria. MUSCULOSKELETAL: Unremarkable. SKIN: Unremarkable. ENDOCRINE: Unremarkable. PSYCHIATRIC: Unremarkable. NEUROLOGY: Unremarkable. ENT/VISION: Unremarkable. CONSTITUTIONAL: No recent weight loss. No fever, chills, night sweats. PHYSICAL EXAMINATION: Blood pressure 96/59, pulse rate 101, temperature 100.3. HEENT examination unremarkable. Conjunctivae pink. Sclerae anicteric. Oral cavity no lesions. NECK: No JVD or lymph node enlargement. CHEST: Clear to auscultation. HEART: Regular rate and rhythm. ABDOMEN: Soft. There was mild to moderate tenderness in the left upper quadrant area, left lower quadrant area and slightly in the epigastric area. No rebound or rigidity. EXTREMITIES: No pedal edema. NEUROLOGIC: She is alert and oriented x3. No focal deficits. LABS: WBC 10, hemoglobin 9.3, platelets 603. AST, ALT, T-bilirubin, alkaline phosphatase are within normal limits. CT of the abdomen done in the emergency room showed severe thickening of the transverse colon as well as the descending colon all the way to the splenic flexure with prominent inflammatory changes noted in the left lower quadrant area and a 4.2 cm irregular thick-walled abscess anteriorly in that area suspicious for an abscess. IMPRESSION: 1. Active Crohn's colitis complicated with intraabdominal abscess. CT as mentioned above. Presently on broad-spectrum antibiotics and started on Zosyn yesterday. She presents with low-grade fever and mild leukocytosis. 2. Active Crohn's colitis diagnosed in December of 2018. Patient was started on Remicade infusions a week ago. She is scheduled for her next Remicade infusion in 2 weeks. RECOMMENDATIONS: 1. Await surgical consultation. 2. Continue with broad-spectrum antibiotics. 3. Keep her n.p.o. Will plan on repeat CT scan in 3-4 days and discuss with Surgery regarding drainage of the abscess by Interventional Radiology. Will follow with you closely. Thank you for this consultation. MMODL / IJN: [id number] /
[2020-04-10] MEDS: PIPERACILLIN-TAZOBACTAM 3.375 GM in SODIUM CHLORIDE 0.9% 100 ML IVPB SCH ×3 (00:11→17:04)
[2020-04-10] MEDS: SODIUM CHLORIDE 0.9% 1,000 ML IV SCH ×2 (00:27→17:10)
[2020-04-10] MEDS: MORPHINE SULFATE 4 MG/ML SYRINGE IV PRN (03:57)
[2020-04-10] MEDS: KETOROLAC 30 MG/ML 1 ML VIAL IVP PRN ×3 (04:46→21:17)
[2020-04-10 07:34] LABS: African American GFR (CKD) >90 (>60 ml/min/1.73 sqM); Anion Gap 6 mmol/L; Blood Urea Nitrogen 7 mg/dL (7-17); Calcium 7.8 mg/dL (8.4-10.2); Carbon Dioxide 24 mmol/L (22-30); Chloride 105 mmol/L (98-107); Glucose 76 mg/dL (74-99); Non-African American GFR(CKD) >90 (>60 ml/min/1.73 sqM); Potassium 3.7 mmol/L (3.5-5.1); Sodium 135 mmol/L (137-145)
[2020-04-10 07:49] LABS: Basophils % (A) 0 %; Eosinophils # (A) 0.1 k/uL (0-0.7); Eosinophils % (A) 1 %; HCT 23.5 % (34.0-46.0); Hypochromasia Marked; Lymphocytes # (A) 1.6 k/uL (1.0-4.8); Lymphocytes % (A) 26 %; MCH 24.3 pg (25.0-35.0); MCHC 28.6 g/dL (31.0-37.0); MCV 84.8 fL (80.0-100.0); Mean Platelet Volume 6.7; Monocytes # (A) 0.3 k/uL (0-1.0); Monocytes % (A) 5 %; Neutrophils % (A) 66 %; Platelet Count 385 k/uL (150-450); RBC 2.78 m/uL (3.80-5.40); RDW 14.8 % (11.5-15.5)
[2020-04-10 07:51] LABS: C Reactive Protein 233.5 mg/L (<10.0)
[2020-04-10 08:00] LABS: HGB 6.7 gm/dL (11.4-16.0)
[2020-04-10] MEDS: methylPREDNISolone SOD SUCCI 40 MG/ML 1 ML VIAL IV SCH ×2 (09:05→17:04)
--- NOTE | 2020-04-10 11:52 | P.PN ---
Progress Note - Text Progress Note Date: 04/10/20 Patient still has complaints of left lower quadrant pain. Patient was found to be anemic this morning with he will 6.7. She is currently receiving 1 unit of packed red cells. On exam vital signs are stable. Abdomen soft. There is tenderness on the left abdominal wall. Exacerbation of Crohn's with abscess. Patient will be re-CAT scan Sunday or Sunday this week. She'll receive IV antibiotics.
[2020-04-10 13:52] LABS: Erythrocyte Sedimentation Rate 97 mm/hr (0-20)
--- NOTE | 2020-04-10 13:56 | PN ---
PROGRESS NOTE DATE OF SERVICE: 04/10/2020 The patient is a 45-year-old pleasant white female with history of severe Crohn's colitis complicated with intraabdominal abscess, who came to the hospital with abdominal pain, presently on broad-spectrum antibiotics. She still continues to have severe abdominal pain today. She remains on a clear liquid diet. Was seen by Dr. Welch who recommended conservative approach at this time. She had about 2 or 3 bowel movements daily. No rectal bleeding. PHYSICAL EXAMINATION: She appears comfortable. No apparent distress. VITAL SIGNS: Show a temperature of 97.7, pulse rate 80, blood pressure 92/56. HEENT examination unremarkable. Conjunctivae pink, sclerae anicteric. Oral cavity no lesions. NECK: No JVD or lymph node enlargement. CHEST: Clear to auscultation. HEART: Regular rate and rhythm. ABDOMEN: Soft, slightly distended. Diffuse tenderness, more in the left upper quadrant area and in the left lower quadrant area, some in the periumbilical area. EXTREMITIES: No pedal edema. NEUROLOGIC: Alert and oriented x3. No focal deficits. LABS: WBC 6, hemoglobin 6.7, platelets 385. CRP 233. Basic metabolic panel is within normal limits. IMPRESSION: 1. Severe Crohn's colitis diagnosed in December of 2018. She was just recently started on Remicade infusions, received the first dose of induction a week ago. Admitted to the hospital with severe abdominal pain and diagnosed with intraabdominal abscess. Presently on broad-spectrum antibiotics. Fever has resolved. Leukocytosis improved, but she is still very symptomatic. 2. Severe symptomatic anemia. Clinically no active bleeding. Most likely anemia of chronic disease. May have a component of iron deficiency anemia. RECOMMENDATIONS: 1. Continue broad-spectrum antibiotics. 2. Start her on IV Solu-Medrol 20 mg q.8 hours for active Crohn's colitis. 3. Transfuse with one unit of PRBC transfusion. 4. Repeat labs in the morning and will follow with you closely. Plan is to repeat CT of the abdomen on Sunday to see for any resolution of the abscess. Thank you for this consultation. MMODL / IJN: [id number] /
--- NOTE | 2020-04-10 16:11 | P.PN ---
Subjective Progress Note Date: 04/10/20 Principal diagnosis: Abdominal pain Patient continues to have left-sided abdominal pain. No significant diarrhea. No nausea or vomiting. No fevers or chills. Objective - Vital Signs Vital signs: Vital Signs Temp 97.5 F L 04/10/20 15:32 Pulse 57 L 04/10/20 15:32 Resp 18 04/10/20 15:32 BP 101/60 04/10/20 15:32 Pulse Ox 98 04/10/20 15:32 Intake & Output 04/09/20 04/10/20 04/10/20 18:59 06:59 18:59 Intake Total 0 Balance 0 Intake: Blood Product 0 Rc As-1 Unit 0 [id number] Other: Voiding Method Toilet # Voids 2 1 3 - Exam Constitutional: No acute distress, conversant, pleasant Eyes:Anicteric sclerae, moist conjunctiva, no lid-lag, PERRLA, ENMT: Oropharynx clear, no erythema, exudates Neck: Supple, FROM, no masses, or JVD, No carotid bruits, No thyromegaly Lungs: Clear to auscultation, Clear to percussion, Normal respiratory effort, no accessory muscle use Cardiovascular: Heart regular in rate and rhythm, No murmurs, gallops, or rubs, No peripheral edema Abdominal: Soft, abdomen is nontender on the left side, no guarding, rebound or rigidity, Normoactive bowel sounds, No hepatomegaly, No splenomegaly, No palpable mass Skin: Normal temperature, tone, texture, turgor, no induration, No subcutaneous nodules, No rash, lesions, No ulcers Extremities: No digital cyanosis, No clubbing, Pedal pulses intact and symmetrical, Radial pulses intact and symmetrical, No calf tenderness Psychiatric: Alert and oriented to person, place and time, appropriate affect, intact judgement Neuro: Muscles Strength 5/5 in all 4 extremities, Sensation to light touch grossly present throughout, Cranial nerves II-XII grossly intact, no focal sensory deficits - Labs CBC & Chem 7: 04/10/20 06:16 04/10/20 06:16 Labs: Abnormal Lab Results - Last 24 Hours (Table) 04/10/20 04/10/20 04/10/20 Range/Units 06:16 06:16 10:55 RBC 2.78 L (3.80-5.40) m/uL Hgb 6.7 L* (11.4-16.0) gm/dL Hct 23.5 L (34.0-46.0) % MCH 24.3 L (25.0-35.0) pg MCHC 28.6 L (31.0-37.0) g/dL ESR 97 H (0-20) mm/hr Sodium 135 L (137-145) mmol/L Creatinine 0.43 L (0.52-1.04) mg/dL Calcium 7.8 L (8.4-10.2) mg/dL C-Reactive Protein 233.5 H (<10.0) mg/L Crossmatch See Detail Microbiology - Last 24 Hours (Table) 04/08/20 16:40 Blood Culture - Preliminary Blood No Growth after 24 hours 04/08/20 16:05 Urine Culture - Final Urine,Voided Assessment and Plan Plan: Crohn disease exacerbation/colitis Clear liquid diet Zosyn Solumedrol added by GI IV fluids Symptomatic pain treatment GI following Abdominal abscess Seen by general surgery, plan to repeat computed tomography scan sunday Zosyn Blood cultures Anemia Likely anemia of chronic disease, r/o chronic bleeding Check stools for occult blood Check iron profile, ferritin, RBC folate, B12, haptoglobin. Transfuse 1 unit Recheck in am Anticipated discharge: pending clinical course Disposition: likely home
[2020-04-10 16:14] LABS: Reticulocyte % 1.5 % (0.5-2.0)
[2020-04-11] MEDS: methylPREDNISolone SOD SUCCI 40 MG/ML 1 ML VIAL IV SCH ×3 (00:07→15:48)
[2020-04-11] MEDS: PIPERACILLIN-TAZOBACTAM 3.375 GM in SODIUM CHLORIDE 0.9% 100 ML IVPB SCH ×3 (00:09→16:18)
[2020-04-11] MEDS: SODIUM CHLORIDE 0.9% 1,000 ML IV SCH (02:37)
[2020-04-11 06:44] LABS: Basophils % (A) 0 %; Eosinophils % (A) 1 %; HCT 31.4 % (34.0-46.0); Hypochromasia Marked; Lymphocytes % (A) 25 %; MCH 25.7 pg (25.0-35.0); MCHC 29.6 g/dL (31.0-37.0); MCV 87.1 fL (80.0-100.0); Mean Platelet Volume 6.6; Monocytes # (A) 0.1 k/uL (0-1.0); Monocytes % (A) 2 %; Neutrophils # (A) 2.7 k/uL (1.3-7.7); Neutrophils % (A) 71 %; Platelet Count 462 k/uL (150-450); RDW 14.5 % (11.5-15.5); WBC 3.9 k/uL (3.8-10.6)
[2020-04-11 06:46] LABS: ALT <6 U/L (4-34); AST 11 U/L (14-36); African American GFR (CKD) >90 (>60 ml/min/1.73 sqM); Albumin 2.5 g/dL (3.5-5.0); Alkaline Phosphatase 99 U/L (38-126); Anion Gap 8 mmol/L; Blood Urea Nitrogen 9 mg/dL (7-17); Calcium 8.3 mg/dL (8.4-10.2); Carbon Dioxide 21 mmol/L (22-30); Chloride 109 mmol/L (98-107); Glucose 118 mg/dL (74-99); Non-African American GFR(CKD) >90 (>60 ml/min/1.73 sqM); Phosphorus 4.1 mg/dL (2.5-4.5); Potassium 4.8 mmol/L (3.5-5.1); Sodium 138 mmol/L (137-145); Total Bilirubin 0.3 mg/dL (0.2-1.3); Total Protein 5.5 g/dL (6.3-8.2)
[2020-04-11 06:54] LABS: HGB 9.3 gm/dL (11.4-16.0)
[2020-04-11] MEDS: KETOROLAC 30 MG/ML 1 ML VIAL IVP PRN (08:27)
--- NOTE | 2020-04-11 09:30 | P.PN ---
Progress Note - Text Progress Note Date: 04/11/20 Patient feels better. Her pain is improved. On exam vital signs are stable. Abdomen soft. Patient undergo repeat CAT scan tomorrow with possible interventional radiology drain procedure
--- NOTE | 2020-04-11 09:45 | PN ---
PROGRESS NOTE DATE OF SERVICE: April 11, 2020 The patient is a 45-year-old pleasant white female with history of severe Crohn's colitis who was started on Remicade infusions a week ago, was admitted to the hospital with intraabdominal abscess. She is on broad-spectrum antibiotics as well as IV steroids. She is feeling a little bit better today. Still has some abdominal pain. No bowel movements for the last 2 days. No rectal bleeding. Hemoglobin was 6.7 yesterday and was given one unit of blood transfusion. Repeat hemoglobin is 9.3. PHYSICAL EXAMINATION: Remains afebrile. Blood pressure 91/60, pulse rate 60, temperature 98.1. HEENT examination unremarkable. Conjunctivae pink. Sclerae anicteric. Oral cavity no lesions. NECK no JVD. No lymph node enlargement. CHEST was clear to auscultation. HEART: Regular rate and rhythm. ABDOMEN with severe tenderness in the left upper quadrant area, left lower quadrant area. Rest of abdomen was benign. Bowel sounds are positive. No organomegaly. EXTREMITIES: No pedal edema. SKIN no rashes. NEURO: She is alert and oriented x3. No focal deficits. LABS: WBC 3.9, hemoglobin 9.3, platelets 462. Rest of the labs are within normal limits. IMPRESSION: 1. Severe Crohn's colitis on IV steroids with Solu-Medrol 20 mg q.8 hours. 2. Intraabdominal abscess. CT scan 3 days ago showed a 4 cm abscess. Presently on IV antibiotics with Zosyn and her symptoms are gradually improving. Surgery following the patient closely. RECOMMENDATIONS: 1. Continue antibiotics. 2. Continue IV steroids. 3. Continue with a clear liquid diet. 4. Plan repeat CT scan tomorrow as per surgery to assess for any improvement in the size of the abscess. 5. We will follow with you closely. Thank you for this consultation. MMODL / IJN: [id number] /
[2020-04-11] MEDS: MORPHINE SULFATE 4 MG/ML SYRINGE IV PRN (10:03)
[2020-04-11] MEDS ORDERED: MORPHINE SULFATE 2 MG/ML SYRINGE IVP PRN (12:12)
--- NOTE | 2020-04-11 12:17 | P.PN ---
Subjective Progress Note Date: 04/11/20 Principal diagnosis: Abdominal pain This morning patient's heart rate dropped to the 40s. She was asymptomatic, no chest pain or shortness of breath. No dizziness. Still with left-sided abdominal pain. Objective - Vital Signs Vital signs: Vital Signs Temp 98.1 F 04/11/20 07:00 Pulse 45 L 04/11/20 07:15 Resp 18 04/11/20 07:00 BP 91/60 04/11/20 07:00 Pulse Ox 98 04/11/20 07:00 Intake & Output 04/10/20 04/11/20 04/11/20 18:59 06:59 18:59 Intake Total 310 400 Balance 310 400 Intake: Oral 400 Blood Product 310 Rc As-1 Unit 310 [id number] Other: Voiding Method Toilet # Voids 3 1 1 # Bowel Movements 1 - Labs CBC & Chem 7: 04/11/20 05:50 04/11/20 05:50 Labs: Abnormal Lab Results - Last 24 Hours (Table) 04/10/20 04/10/20 04/11/20 Range/Units 06:16 10:55 05:50 RBC 3.60 L (3.80-5.40) m/uL Hgb 9.3 L D (11.4-16.0) gm/dL Hct 31.4 L (34.0-46.0) % MCHC 29.6 L (31.0-37.0) g/dL Plt Count 462 H (150-450) k/uL ESR 97 H (0-20) mm/hr Chloride (98-107) mmol/L Carbon Dioxide (22-30) mmol/L Creatinine (0.52-1.04) mg/dL Glucose (74-99) mg/dL Calcium (8.4-10.2) mg/dL AST (14-36) U/L Total Protein (6.3-8.2) g/dL Albumin (3.5-5.0) g/dL Stool Occult Blood (Negative) Crossmatch See Detail 04/11/20 04/11/20 Range/Units 05:50 09:08 RBC (3.80-5.40) m/uL Hgb (11.4-16.0) gm/dL Hct (34.0-46.0) % MCHC (31.0-37.0) g/dL Plt Count (150-450) k/uL ESR (0-20) mm/hr Chloride 109 H (98-107) mmol/L Carbon Dioxide 21 L (22-30) mmol/L Creatinine 0.33 L (0.52-1.04) mg/dL Glucose 118 H (74-99) mg/dL Calcium 8.3 L (8.4-10.2) mg/dL AST 11 L (14-36) U/L Total Protein 5.5 L (6.3-8.2) g/dL Albumin 2.5 L (3.5-5.0) g/dL Stool Occult Blood Positive H (Negative) Crossmatch Microbiology - Last 24 Hours (Table) 04/08/20 16:40 Blood Culture - Preliminary Blood No Growth after 48 hours Assessment and Plan Plan: Crohn disease exacerbation/colitis Clear liquid diet Zosyn Solumedrol added by GI IV fluids Symptomatic pain treatment GI following Abdominal abscess Seen by general surgery, plan to repeat computed tomography scan sunday Zosyn Blood cultures negative Sinus bradycardia Transferred to the telemetry unit Decrease morphine dose Check troponin Anemia Stools for occult blood positive Iron profile, ferritin, RBC folate, B12, pending. S/p 1 unit of PRBCs on 04/10 Recheck in am Anticipated discharge: pending clinical course Disposition: likely home
[2020-04-12] MEDS: PIPERACILLIN-TAZOBACTAM 3.375 GM in SODIUM CHLORIDE 0.9% 100 ML IVPB SCH ×4 (00:25→23:30)
[2020-04-12] MEDS: methylPREDNISolone SOD SUCCI 40 MG/ML 1 ML VIAL IV SCH ×4 (00:25→23:30)
[2020-04-12] MEDS: SODIUM CHLORIDE 0.9% 1,000 ML IV SCH ×2 (02:23→20:40)
[2020-04-12 09:47] LABS: Basophils % (A) 1 %; Eosinophils % (A) 1 %; HCT 34.6 % (34.0-46.0); HGB 10.2 gm/dL (11.4-16.0); Hypochromasia Marked; Lymphocytes # (A) 1.1 k/uL (1.0-4.8); Lymphocytes % (A) 18 %; MCH 25.4 pg (25.0-35.0); MCHC 29.6 g/dL (31.0-37.0); MCV 85.7 fL (80.0-100.0); Mean Platelet Volume 6.7; Monocytes # (A) 0.2 k/uL (0-1.0); Monocytes % (A) 3 %; Neutrophils # (A) 4.6 k/uL (1.3-7.7); Neutrophils % (A) 77 %; Platelet Count 613 k/uL (150-450); RBC 4.03 m/uL (3.80-5.40); WBC 5.9 k/uL (3.8-10.6)
[2020-04-12 10:00] LABS: ALT <6 U/L (4-34); AST 11 U/L (14-36); African American GFR (CKD) >90 (>60 ml/min/1.73 sqM); Albumin 2.7 g/dL (3.5-5.0); Alkaline Phosphatase 89 U/L (38-126); Anion Gap 7 mmol/L; Blood Urea Nitrogen 11 mg/dL (7-17); Calcium 8.4 mg/dL (8.4-10.2); Carbon Dioxide 22 mmol/L (22-30); Chloride 108 mmol/L (98-107); Glucose 110 mg/dL (74-99); Magnesium 2.1 mg/dL (1.6-2.3); Non-African American GFR(CKD) >90 (>60 ml/min/1.73 sqM); Sodium 137 mmol/L (137-145); Total Bilirubin 0.2 mg/dL (0.2-1.3); Total Protein 5.8 g/dL (6.3-8.2)
[2020-04-12 11:30] LABS: % Iron Saturation 3.23 (12.00-45.00)
--- NOTE | 2020-04-12 11:38 | P.PN ---
Subjective Progress Note Date: 04/12/20 Principal diagnosis: Abdominal pain Patient's heart rate continues to be low in the 40s range. She is asymptomatic. No chest pain or shortness of breath. No dizziness. No fevers or chills. Still having left-sided abdominal pain. Objective - Vital Signs Vital signs: Vital Signs Temp 97.7 F 04/12/20 07:00 Pulse 41 L 04/12/20 07:00 Resp 16 04/12/20 07:00 BP 93/57 04/12/20 07:00 Pulse Ox 98 04/12/20 07:00 Intake & Output 04/11/20 04/12/20 04/12/20 18:59 06:59 18:59 Intake Total 380 Balance 380 Intake: Intake, IV Titration 360 Amount Sodium Chloride 0.9% 1, 360 000 ml @ 60 mls/hr IV . [id number] [facility] Rx#:[id number] Oral 20 Other: Voiding Method Toilet Toilet # Voids 2 # Bowel Movements 1 - Exam Constitutional: No acute distress, conversant, pleasant Eyes:Anicteric sclerae, moist conjunctiva, no lid-lag, PERRLA, ENMT: Oropharynx clear, no erythema, exudates Neck: Supple, FROM, no masses, or JVD, No carotid bruits, No thyromegaly Lungs: Clear to auscultation, Clear to percussion, Normal respiratory effort, no accessory muscle use Cardiovascular: Heart regular in rate and rhythm, No murmurs, gallops, or rubs, No peripheral edema Abdominal: Soft, abdomen is nontender on the left side, no guarding, rebound or rigidity, Normoactive bowel sounds, No hepatomegaly, No splenomegaly, No palpable mass Skin: Normal temperature, tone, texture, turgor, no induration, No subcutaneous nodules, No rash, lesions, No ulcers Extremities: No digital cyanosis, No clubbing, Pedal pulses intact and symmetrical, Radial pulses intact and symmetrical, No calf tenderness Psychiatric: Alert and oriented to person, place and time, appropriate affect, intact judgement Neuro: Muscles Strength 5/5 in all 4 extremities, Sensation to light touch grossly present throughout, Cranial nerves II-XII grossly intact, no focal sensory deficits - Labs CBC & Chem 7: 04/12/20 09:20 04/12/20 09:20 Labs: Abnormal Lab Results - Last 24 Hours (Table) 04/10/20 04/12/20 04/12/20 Range/Units 06:16 09:20 09:20 Hgb 10.2 L (11.4-16.0) gm/dL MCHC 29.6 L (31.0-37.0) g/dL Plt Count 613 H (150-450) k/uL Chloride 108 H (98-107) mmol/L Creatinine 0.37 L (0.52-1.04) mg/dL Glucose 110 H (74-99) mg/dL Iron 5 L (50-170) ug/dL TIBC 155 L (228-460) ug/dL % Saturation 3.23 L (12.00-45.00) AST 11 L (14-36) U/L Total Protein 5.8 L (6.3-8.2) g/dL Albumin 2.7 L (3.5-5.0) g/dL Vitamin B12 1847.0 H (200.0-944.0) pg/mL Microbiology - Last 24 Hours (Table) 04/08/20 16:40 Blood Culture - Preliminary Blood No Growth after 72 hours Assessment and Plan Plan: Crohn disease exacerbation/colitis Clear liquid diet Zosyn Solumedrol IV fluids Symptomatic pain treatment GI following Abdominal abscess Seen by general surgery, plan to repeat computed tomography scan today Zosyn Blood cultures negative Sinus bradycardia Echo Continue on telemetry Anemia Stools for occult blood positive Iron profile consistent with iron deficiency Start iron replacement S/p 1 unit of PRBCs on 04/[address] Albarran Anticipated discharge: pending clinical course Disposition: likely home
--- NOTE | 2020-04-12 11:46 | ECHOF ---
Referral Reason:bradycardia MEASUREMENTS -------- HEIGHT: 170.2 cm WEIGHT: 63.5 kg BP: RVIDd: 2.3 cm (< 3.3) IVSd: 0.9 cm (0.6 - 1.1) LVIDd: 4.6 cm (3.9 - 5.3) LVPWd: 1.0 cm (0.6 - 1.1) IVSs: 1.2 cm LVIDs: 3.7 cm LVPWs: 0.9 cm LAESV Index (A-L): 29.44 ml/m Ao Diam: 3.1 cm (2.0 - 3.7) AV Cusp: 2.3 cm (1.5 - 2.6) LA Diam: 3.0 cm (2.7 - 3.8) MV EXCURSION: 9.111 mm (> 18.000) MV EF SLOPE: 139 mm/s (70 - 150) EPSS: 0.8 cm MV E Edgard: 0.92 m/s MV DecT: 196 ms MV A Edgard: 0.51 m/s MV E/A Ratio: 1.81 RAP: 15.00 mmHg RVSP: 19.79 mmHg FINDINGS -------- Resting bradycardia (HR<60bpm). This was a technically good study. The left ventricular size is normal. Left ventricular wall thickness is normal. Overall left vent ricular systolic function is low-normal with, an EF between 50 - 55 %. The diastolic filling patter n is normal for the age of the patient 7.88. The right ventricle is normal in size. The left atrial size is normal. Normal LA size by volume 22+/-6 ml/m2. The right atrial size is normal. The aortic valve is trileaflet and appears structurally normal. The mitral valve is normal. Mild mitral regurgitation is present. The tricuspid valve appears structurally normal. Mild tricuspid regurgitation present. Right vent ricular systolic pressure is normal at < 35 mmHg. There is no pulmonic regurgitation present. The aortic root size is normal. The inferior vena cava is mildly dilated. There is no pericardial effusion. CONCLUSIONS -------- 1. Resting bradycardia (HR<60bpm). 2. This was a technically good study. 3. The left ventricular size is normal. 4. Left ventricular wall thickness is normal. 5. Overall left ventricular systolic function is low-normal with, an EF between 50 - 55 %. 6. The diastolic filling pattern is normal for the age of the patient 7.88 7. The right ventricle is normal in size. 8. The left atrial size is normal. 9. Normal LA size by volume 22+/-6 ml/m2. 10. The right atrial size is normal. 11. The aortic valve is trileaflet and appears structurally normal. 12. The mitral valve is normal. 13. Mild mitral regurgitation is present. 14. The tricuspid valve appears structurally normal. 15. Mild tricuspid regurgitation present. 16. Right ventricular systolic pressure is normal at < 35 mmHg. 17. There is no pulmonic regurgitation present. 18. The aortic root size is normal. 19. The inferior vena cava is mildly dilated. 20. There is no pericardial effusion. MANAGER PROVIDER RELATIONS: Priyanka Hussein RDCS
[2020-04-12] MEDS: FERROUS SULFATE 325 MG TAB PO SCH ×2 (11:52→16:04)
--- NOTE | 2020-04-12 12:49 | P.CRDCN ---
History of Present Illness History of present illness: HISTORY OF PRESENTING ILLNESS This is a pleasant 45-year-old female past medical history significant for crohn's disease. 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 We have been asked to see in consultation for bradycardia. She is currently being treated for an acute exacerbation of Crohn/colitis receiving IV steroids and also was found to have an abdominal wall abscess on IV antibiotics. Surgery is following closely. Vital signs reveal her heart rate was running in the 40s. Telemetry was ordered indicates her heart rate goes as low as 30 at times. The patient states she has always had a lower heart rate along with low blood pressure. She denies symptoms of dizziness, lightheaded, shortness of breath, fatigue or chest pain. She continues to have abdominal discomfort that is improving since admission. She is seen and examined sitting up in bed in no acute distress. She is quite frustrated as she states her always runs low and she does not feel she requires a cardiology consultation. DIAGNOSTICS EKG reveals sinus bradycardia heart rate of 44. Laboratory reviewed, and admission her hemoglobin was low at 6. 7 repeat today after transfusion of packed red blood cells is 10.2, platelets 613, sodium 137, potassium 5.0, creatinine 0.37, magnesium 2.1, troponin negative 1, stool for occult blood is positive, CRP 233 and vitamin B12 1847. She takes no daily cardiac medications. REVIEW OF SYSTEMS At the time of my exam: CONSTITUTIONAL: Denies fever or chills. CARDIOVASCULAR: Denies chest pain, shortness of breath, orthopnea, PND or palpitations. RESPIRATORY: Denies cough. GASTROINTESTINAL: Complains of abdominal pain. Denies diarrhea, constipation, nausea or vomiting. MUSCULOSKELETAL: Denies myalgias. NEUROLOGIC: Denies numbness, tingling or weakness. ENDOCRINE: Denies fatigue, weight change, polydipsia or polyurina. GENITOURINARY: Denies burning, hematuria or urgency with micturation. HEMATOLOGIC: Denies history of anemia or bleeding. PHYSICAL EXAMINATION Blood pressure 93/57 heart rate 41 afebrile and maintaining oxygen saturation on room air. CONSTITUTIONAL: No apparent distress. HEENT: Head is normocephalic. Pupils are equal, round. Sclerae anicteric. Mucous membranes of the mouth are moist. No JVD. No carotid bruit. CHEST EXAMINATION: Lungs are clear to auscultation. No chest wall tenderness is noted on palpation or with deep breathing. HEART EXAMINATION: Regular rate and rhythm. S1, S2 heard. No murmurs, gallops or rub. ABDOMEN: Soft, nontender. Positive bowel sounds. EXTREMITIES: 2+ peripheral pulses, no lower extremity edema and no calf tenderness. NEUROLOGIC EXAMINATION: Patient is awake, alert and oriented x3. ASSESSMENT Sinus bradycardia, asymptomatic Colitis Abdominal abscess PLAN Etiology of sinus bradycardia unknown however could be related to a vagal response secondary to abdominal pain. Check thyroid function. Obtain 2-D echocardiogram and Doppler study to assess cardiac structure and function. Continue telemetry monitoring. Recommend decreasing morphine administration. Thank you kindly for this consultation, we will continue to follow make recommendations accordingly. Nurse Practitioner note has been reviewed, I agree with a documented findings and plan of care. Patient was seen and examined. Past Medical History Additional Past Medical History / Comment(s): crohn's History of Any Multi-Drug Resistant Organisms: None Reported Past Surgical History: No Surgical Hx Reported Additional Past Surgical History / Comment(s): colonoscopy Past Anesthesia/Blood Transfusion Reactions: No Reported Reaction Past Psychological History: No Psychological Hx Reported Smoking Status: Never smoker Past Alcohol Use History: None Reported Past Drug Use History: None Reported - Past Family History Mother History Unknown: Yes Medications and Allergies Home Medications Medication Instructions Recorded Confirmed Type Ferrous Sulfate [Feosol] 325 mg PO DAILY 12/15/19 04/08/20 History Acetaminophen Tab [Tylenol] 650 - 975 mg PO Q4H PRN 04/08/20 04/08/20 History inFLIXimab [Remicade] 100 mg IV DIRECTED 04/08/20 04/08/20 History Allergies Allergy/AdvReac Type Severity Reaction Status Date / Time No Known Allergies Allergy Verified 04/08/20 15:02 Physical Exam Vitals: Vital Signs Temp Pulse Resp BP Pulse Ox 04/12/20 07:00 97.7 F 41 L 16 93/57 98 04/12/20 00:35 97.3 F L 46 L 18 93/58 97 04/11/20 19:42 97.6 F 53 L 18 94/57 98 04/11/20 15:15 97.5 F L 60 16 103/67 100 Intake and Output 04/11/20 04/12/20 04/12/20 22:59 06:59 14:59 Intake Total 20 360 Balance 20 360 Intake: Intake, IV Titration 360 Amount Sodium Chloride 0.9% 1, 360 000 ml @ 60 mls/hr IV . [id number] [facility] Rx#:[id number] Oral 20 Other: Voiding Method Toilet Toilet Results 04/12/20 09:20 04/12/20 09:20 Cardiac Enzymes 04/11/20 04/12/20 Range/Units 12:27 09:20 AST 11 L (14-36) U/L Troponin I <0.012 (0.000-0.034) ng/mL CBC 04/12/20 Range/Units 09:20 WBC 5.9 (3.8-10.6) k/uL RBC 4.03 (3.80-5.40) m/uL Hgb 10.2 L (11.4-16.0) gm/dL Hct 34.6 (34.0-46.0) % Plt Count 613 H (150-450) k/uL Comprehensive Metabolic Panel 04/12/20 Range/Units 09:20 Sodium 137 (137-145) mmol/L Potassium 5.0 (3.5-5.1) mmol/L Chloride 108 H (98-107) mmol/L Carbon Dioxide 22 (22-30) mmol/L BUN 11 (7-17) mg/dL Creatinine 0.37 L (0.52-1.04) mg/dL Glucose 110 H (74-99) mg/dL Calcium 8.4 (8.4-10.2) mg/dL AST 11 L (14-36) U/L ALT <6 (4-34) U/L Alkaline Phosphatase 89 (38-126) U/L Total Protein 5.8 L (6.3-8.2) g/dL Albumin 2.7 L (3.5-5.0) g/dL Current Medications Generic Name Dose Route Start Last Admin Trade Name Freq PRN Reason Stop Dose Admin Acetaminophen 650 mg 04/08/20 16:06 Tylenol Tab PO Q6HR PRN Mild Pain or Fever > 100.5 Ferrous Sulfate 325 mg 04/12/20 12:30 04/12/20 11:52 Feosol PO Not Given TID-W/MEALS [facility] Sodium Chloride 1,000 mls @ 60 mls/hr 04/08/20 16:15 04/12/20 02:23 Saline 0.9% IV 60 mls/hr .[id number] RHIANNON Administration Piperacillin Sod/Tazobactam 100 mls @ 25 mls/hr 04/09/20 01:00 04/12/20 07:40 Sod 3.375 gm/ Sodium Chloride IVPB 25 mls/hr Q8HR RHIANNON Administration Ketorolac Tromethamine 30 mg 04/08/20 16:06 04/11/20 08:27 Toradol IVP 04/13/20 16:07 30 mg Q6HR PRN Administration Moderate Pain Methylprednisolone Sodium Succinate 20 mg 04/10/20 08:30 04/12/20 07:41 Solu-Medrol IV 20 mg Q8HR RHIANNON Administration Morphine Sulfate 2 mg 04/11/20 12:12 Morphine Sulfate (Inj) IVP Q8H PRN Pain/Discomfort Naloxone HCl 0.2 mg 04/08/20 16:06 Narcan IV Q2M PRN Opioid Reversal Ondansetron HCl 4 mg 04/08/20 16:06 Zofran IVP Q8HR PRN Nausea And Vomiting Intake and Output 04/11/20 04/12/20 04/12/20 22:59 06:59 14:59 Intake Total 20 360 Balance 20 360 Intake: Intake, IV Titration 360 Amount Sodium Chloride 0.9% 1, 360 000 ml @ 60 mls/hr IV . [id number] [facility] Rx#:[id number] Oral 20 Other: Voiding Method Toilet Toilet 04/12/20 09:20 04/12/20 09:20
--- NOTE | 2020-04-12 15:36 | CT ---
EXAMINATION TYPE: CT guided abscess drainage DATE OF EXAM: 04/12/2020 COMPARISON: 04/08/2020 HISTORY: abscess drainage CT DLP: 1170 mGycm The procedure is discussed with the patient, the risks, complications, benefits and alternatives, wer e discussed and any questions were answered. Informed consent was obtained. The patient is placed s upine on the CT table, prepped and draped in the usual sterile fashion. Utilizing a 22-gauge Chiba needle access into the small abscess cavity in the left abdomen. There is immediate drainage of approximately 8 to 10 cc of purulent material. Repeat imaging demonstrated only small residual cavity. The cavity which was not large enough to allow the wire to coil adequately fo r an of purchase to place a drainage catheter. Case was discussed with the referring surgeon and it w as elected to defer drainage catheter. All elements of maximal barrier technique were utilized. The patient remained stable throughout the procedure with no immediate postprocedural complication. IMPRESSION: 1. Successful CT guided fine needle aspiration of a left upper quadrant abscess cavity
--- NOTE | 2020-04-12 15:45 | P.PN ---
Progress Note - Text Progress Note Date: 04/12/[address]-guided aspiration of abscess. The abscess cavity is quite small. 8 mL of purulent fluid was withdrawn. The radiologist was unable place a catheter. Patient tolerated the procedure will well we'll continue IV and a box
--- NOTE | 2020-04-13 07:35 | P.PN ---
Subjective Progress Note Date: 04/12/20 Principal diagnosis: Colonic abscess, Crohn's disease, abdominal pain Patient is seen lying in bed today no acute complaints. Some improvement in abdominal pain. No nausea or vomiting. Objective - Vital Signs Vital signs: Vital Signs Temp 97.7 F 04/12/20 07:00 Pulse 41 L 04/12/20 07:00 Resp 16 04/12/20 07:00 BP 93/57 04/12/20 07:00 Pulse Ox 98 04/12/20 07:00 Intake & Output 04/11/20 04/12/20 04/12/20 18:59 06:59 18:59 Intake Total 380 Balance 380 Intake: Intake, IV Titration 360 Amount Sodium Chloride 0.9% 1, 360 000 ml @ 60 mls/hr IV . [id number] [facility] Rx#:[id number] Oral 20 Other: Voiding Method Toilet Toilet # Voids 2 # Bowel Movements 1 - Exam On physical examination, patient appears comfortable in no apparent distress. HEAD: Normocephalic, atraumatic. EYES: No scleral icterus. No conjunctival injection. MOUTH: No lesions, tongue midline. NECK: Trachea midline, no gross abnormalities. ABDOMEN: Soft, mildly tender to palpation. Bowel sounds are positive. No organomegaly. No guarding or rigidity. EXTREMITIES: No pedal edema. SKIN: No rashes, no jaundice. NEUROLOGIC: Alert and oriented x3. No focal deficits. - Labs CBC & Chem 7: 04/12/20 09:20 04/12/20 09:20 Labs: Abnormal Lab Results - Last 24 Hours (Table) 04/10/20 04/10/20 04/12/20 Range/Units 06:16 06:16 09:20 Hgb 10.2 L (11.4-16.0) gm/dL MCHC 29.6 L (31.0-37.0) g/dL Plt Count 613 H (150-450) k/uL Chloride (98-107) mmol/L Creatinine (0.52-1.04) mg/dL Glucose (74-99) mg/dL Iron 5 L (50-170) ug/dL TIBC 155 L (228-460) ug/dL % Saturation 3.23 L (12.00-45.00) Transferrin 87.6 L (204.0-354.0) mg/dL AST (14-36) U/L Total Protein (6.3-8.2) g/dL Albumin (3.5-5.0) g/dL Vitamin B12 1847.0 H (200.0-944.0) pg/mL 04/12/20 Range/Units 09:20 Hgb (11.4-16.0) gm/dL MCHC (31.0-37.0) g/dL Plt Count (150-450) k/uL Chloride 108 H (98-107) mmol/L Creatinine 0.37 L (0.52-1.04) mg/dL Glucose 110 H (74-99) mg/dL Iron (50-170) ug/dL TIBC (228-460) ug/dL % Saturation (12.00-45.00) Transferrin (204.0-354.0) mg/dL AST 11 L (14-36) U/L Total Protein 5.8 L (6.3-8.2) g/dL Albumin 2.7 L (3.5-5.0) g/dL Vitamin B12 (200.0-944.0) pg/mL Microbiology - Last 24 Hours (Table) 04/08/20 16:40 Blood Culture - Preliminary Blood No Growth after 72 hours Assessment and Plan (1) Crohn disease Narrative/Plan: 45-year-old female with a history of severe Crohn's colitis started on Remicade infusions a few weeks ago was admitted to the hospital with intra-abdominal abscess. Currently on broad-spectrum antibiotic therapies. Collection of fluid does not appear large enough for IR guided drainage placement and patient is feeling better on broad-spectrum antibiotic therapy at this time. Current Visit: Yes Status: Acute Code(s): K50.90 - CROHN'S DISEASE, UNSPECIFIED, WITHOUT COMPLICATIONS SNOMED Code(s): 72910114 (2) LLQ abdominal pain Current Visit: Yes Status: Acute Code(s): R10.32 - LEFT LOWER QUADRANT PAIN SNOMED Code(s): 546389388 (3) Left lower quadrant abdominal abscess Current Visit: Yes Status: Acute Code(s): K65.1 - PERITONEAL ABSCESS SNOMED Code(s): 88659150 Plan: Supportive care Continue broad-spectrum antibiotic therapy Continue IV steroids Okay for clear liquid diet, advance per surgical recommendations Patient will need follow-up after discharge for continued management of underlying Crohn's disease Thank you for allowing us to participate in the care of the patient we will continue to follow
[2020-04-13] MEDS: PIPERACILLIN-TAZOBACTAM 3.375 GM in SODIUM CHLORIDE 0.9% 100 ML IVPB SCH ×3 (08:26→23:38)
[2020-04-13] MEDS: FERROUS SULFATE 325 MG TAB PO SCH ×3 (08:26→15:33)
[2020-04-13] MEDS: KETOROLAC 30 MG/ML 1 ML VIAL IVP PRN (08:35)
[2020-04-13] MEDS: methylPREDNISolone SOD SUCCI 40 MG/ML 1 ML VIAL IV SCH (09:31)
--- NOTE | 2020-04-13 10:15 | P.PN ---
Progress Note - Text Progress Note Date: 04/13/[address]-guided drainage of abscess yesterday. She feels slightly better. On exam her vital signs are stable. Her abdomen is soft. There is marked tenderness left side. The patient was requesting home but due to her significant pain at think she should be observed if he received IV antibiotic. She'll be reassessed in the morning.
[2020-04-13 10:38] LABS: Basophils % (A) 0 %; Eosinophils % (A) 0 %; HCT 34.3 % (34.0-46.0); HGB 10.2 gm/dL (11.4-16.0); Hypochromasia Marked; Lymphocytes # (A) 1.7 k/uL (1.0-4.8); Lymphocytes % (A) 23 %; MCH 26.1 pg (25.0-35.0); MCHC 29.8 g/dL (31.0-37.0); MCV 87.6 fL (80.0-100.0); Monocytes # (A) 0.4 k/uL (0-1.0); Monocytes % (A) 5 %; Neutrophils # (A) 5.3 k/uL (1.3-7.7); Neutrophils % (A) 71 %; Platelet Count 635 k/uL (150-450); RBC 3.92 m/uL (3.80-5.40); WBC 7.4 k/uL (3.8-10.6)
[2020-04-13 10:53] LABS: African American GFR (CKD) >90 (>60 ml/min/1.73 sqM); Anion Gap 7 mmol/L; Blood Urea Nitrogen 11 mg/dL (7-17); Calcium 8.3 mg/dL (8.4-10.2); Carbon Dioxide 25 mmol/L (22-30); Chloride 104 mmol/L (98-107); Glucose 106 mg/dL (74-99); Non-African American GFR(CKD) >90 (>60 ml/min/1.73 sqM); Potassium 4.8 mmol/L (3.5-5.1); Sodium 136 mmol/L (137-145)
[2020-04-13] MEDS: SODIUM CHLORIDE 0.9% 1,000 ML IV SCH (11:15)
--- NOTE | 2020-04-13 11:28 | P.PN ---
Subjective Progress Note Date: 04/13/20 Principal diagnosis: Abdominal pain Patient was having worse abdominal pain this morning. Her stomach feels upset and she does not have an appetite to eat her breakfast today. Heart rate still low. No chest pain, no shortness of breath. No dizziness, no palpitation. No fevers or chills. Objective - Vital Signs Vital signs: Vital Signs Temp 98.3 F 04/13/20 07:00 Pulse 41 L 04/13/20 08:40 Resp 16 04/13/20 07:00 BP 104/63 04/13/20 07:00 Pulse Ox 99 04/13/20 07:00 Intake & Output 04/12/20 04/13/20 04/13/20 18:59 06:59 18:59 Intake Total 460 Balance 460 Intake: Intake, IV Titration 460 Amount Piperacillin-Tazobactam 3 100 .375 gm In Sodium Chloride 0.9% 100 ml @ 25 mls/hr IVPB Q8HR [facility] Rx# :[id number] Sodium Chloride 0.9% 1, 360 000 ml @ 60 mls/hr IV . [id number] [facility] Rx#:[id number] Other: Voiding Method Toilet Toilet - Exam Constitutional: No acute distress, conversant, pleasant Eyes:Anicteric sclerae, moist conjunctiva, no lid-lag, PERRLA, ENMT: Oropharynx clear, no erythema, exudates Neck: Supple, FROM, no masses, or JVD, No carotid bruits, No thyromegaly Lungs: Clear to auscultation, Clear to percussion, Normal respiratory effort, no accessory muscle use Cardiovascular: Heart regular in rate and rhythm, No murmurs, gallops, or rubs, No peripheral edema Abdominal: Soft, abdomen is nontender on the left side, no guarding, rebound or rigidity, Normoactive bowel sounds, No hepatomegaly, No splenomegaly, No palpable mass Skin: Normal temperature, tone, texture, turgor, no induration, No subcutaneous nodules, No rash, lesions, No ulcers Extremities: No digital cyanosis, No clubbing, Pedal pulses intact and symmetrical, Radial pulses intact and symmetrical, No calf tenderness Psychiatric: Alert and oriented to person, place and time, appropriate affect, intact judgement Neuro: Muscles Strength 5/5 in all 4 extremities, Sensation to light touch grossly present throughout, Cranial nerves II-XII grossly intact, no focal sensory deficits - Labs CBC & Chem 7: 04/13/20 09:17 04/13/20 09:17 Labs: Abnormal Lab Results - Last 24 Hours (Table) 04/10/20 04/10/20 04/10/20 Range/Units 06:16 06:16 06:16 Hgb (11.4-16.0) gm/dL MCHC (31.0-37.0) g/dL Plt Count (150-450) k/uL Sodium (137-145) mmol/L Creatinine (0.52-1.04) mg/dL Glucose (74-99) mg/dL Calcium (8.4-10.2) mg/dL Iron 5 L (50-170) ug/dL TIBC 155 L (228-460) ug/dL % Saturation 3.23 L (12.00-45.00) Transferrin 87.6 L (204.0-354.0) mg/dL Vitamin B12 1847.0 H (200.0-944.0) pg/mL RBC Folate 1,680 H (280 - 791) ng/mL 04/13/20 04/13/20 Range/Units 09:17 09:17 Hgb 10.2 L (11.4-16.0) gm/dL MCHC 29.8 L (31.0-37.0) g/dL Plt Count 635 H (150-450) k/uL Sodium 136 L (137-145) mmol/L Creatinine 0.40 L (0.52-1.04) mg/dL Glucose 106 H (74-99) mg/dL Calcium 8.3 L (8.4-10.2) mg/dL Iron (50-170) ug/dL TIBC (228-460) ug/dL % Saturation (12.00-45.00) Transferrin (204.0-354.0) mg/dL Vitamin B12 (200.0-944.0) pg/mL RBC Folate (280 - 791) ng/mL Microbiology - Last 24 Hours (Table) 04/12/20 14:50 Gram Stain - Preliminary Aspirate Body Fluid Culture - Preliminary 04/12/20 14:50 Anaerobic Culture - Preliminary Aspirate 04/08/20 16:40 Blood Culture - Preliminary Blood No Growth after 96 hours Assessment and Plan Plan: Crohn disease exacerbation/colitis Clear liquid diet Zosyn Solumedrol IV fluids Symptomatic pain treatment Add Mylanta when necessary GI following Abdominal abscess Status post CT-guided drainage, no drain could be placed due to small abscess size. Discussed with general surgery, plan to repeat computed tomography scan today Zosyn Blood cultures negative Sinus bradycardia Echo looking okay TSH normal Continue on telemetry Seen by cardiology, can be discharged from their perspective. Anemia Stools for occult blood positive Iron profile consistent with iron deficiency Started iron replacement S/p 1 unit of PRBCs on 04/10 Anticipated discharge: 1 day Disposition: likely home
--- NOTE | 2020-04-13 11:38 | P.PN ---
Subjective HISTORY OF PRESENTING ILLNESS This is a pleasant 45-year-old female past medical history significant for crohn's disease. 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 She is seen and examined sitting up in bed in no acute distress. She continues to quiroz ve abdominal pain and tenderness. She underwent a CT guided abscess drainage yesterday with interventional radiology. She states she has been up ambulating around the room and denies dizziness, shortness of breath, chest pain or palpitations. Blood pressure 104/63 heart rate 44 afebrile and maintaining oxygens saturations on room air. Echocardiogram revealed preserved LV systolic function with ejection fraction 50-55%, mild MR and mild TR noted. PHYSICAL EXAMINATION CONSTITUTIONAL: No apparent distress. HEENT: Head is normocephalic. Pupils are equal, round. Sclerae anicteric. Mucous membranes of the mouth are moist. No JVD. No carotid bruit. CHEST EXAMINATION: Lungs are clear to auscultation. No chest wall tenderness is noted on palpation or with deep breathing. HEART EXAMINATION: Regular rate and rhythm. S1, S2 heard. No murmurs, gallops or rub. EXTREMITIES: 2+ peripheral pulses, no lower extremity edema and no calf tenderness. ASSESSMENT Sinus bradycardia, asymptomatic Colitis Abdominal abscess PLAN Consider discontinuation of steroids secondary to the possibility they are c ausing her bradycardia. Initiate levsin 0.125 mg TID. Continue telemetry monitoring. Nurse Practitioner note has been reviewed, I agree with a documented findings and plan of care. Patient was seen and examined. Objective - Vital Signs Vital signs: Vital Signs Temp 98.3 F 04/13/20 07:00 Pulse 44 L 04/13/20 07:00 Resp 16 04/13/20 07:00 BP 104/63 04/13/20 07:00 Pulse Ox 99 04/13/20 07:00 Intake & Output 04/12/20 04/13/20 04/13/20 18:59 06:59 18:59 Intake Total 460 Balance 460 Intake: Intake, IV Titration 460 Amount Piperacillin-Tazobactam 3 100 .375 gm In Sodium Chloride 0.9% 100 ml @ 25 mls/hr IVPB Q8HR [facility] Rx# :[id number] Sodium Chloride 0.9% 1, 360 000 ml @ 60 mls/hr IV . [id number] [facility] Rx#:[id number] Other: Voiding Method Toilet Toilet - Labs CBC & Chem 7: 04/13/20 09:17 04/13/20 09:17 Labs: Abnormal Lab Results - Last 24 Hours (Table) 04/10/20 04/10/20 04/10/20 Range/Units 06:16 06:16 06:16 Hgb (11.4-16.0) gm/dL MCHC (31.0-37.0) g/dL Plt Count (150-450) k/uL Chloride (98-107) mmol/L Creatinine (0.52-1.04) mg/dL Glucose (74-99) mg/dL Iron 5 L (50-170) ug/dL TIBC 155 L (228-460) ug/dL % Saturation 3.23 L (12.00-45.00) Transferrin 87.6 L (204.0-354.0) mg/dL AST (14-36) U/L Total Protein (6.3-8.2) g/dL Albumin (3.5-5.0) g/dL Vitamin B12 1847.0 H (200.0-944.0) pg/mL RBC Folate 1,680 H (280 - 791) ng/mL 04/12/20 04/12/20 Range/Units 09:20 09:20 Hgb 10.2 L (11.4-16.0) gm/dL MCHC 29.6 L (31.0-37.0) g/dL Plt Count 613 H (150-450) k/uL Chloride 108 H (98-107) mmol/L Creatinine 0.37 L (0.52-1.04) mg/dL Glucose 110 H (74-99) mg/dL Iron (50-170) ug/dL TIBC (228-460) ug/dL % Saturation (12.00-45.00) Transferrin (204.0-354.0) mg/dL AST 11 L (14-36) U/L Total Protein 5.8 L (6.3-8.2) g/dL Albumin 2.7 L (3.5-5.0) g/dL Vitamin B12 (200.0-944.0) pg/mL RBC Folate (280 - 791) ng/mL Microbiology - Last 24 Hours (Table) 04/12/20 14:50 Gram Stain - Preliminary Aspirate Body Fluid Culture - Preliminary 04/12/20 14:50 Anaerobic Culture - Preliminary Aspirate 04/08/20 16:40 Blood Culture - Preliminary Blood No Growth after 96 hours
[2020-04-13] MEDS: MAG HYDROX/AL HYDROX/SIMETH 30 ML CUP PO PRN (11:56)
[2020-04-13] MEDS: HYOSCYAMINE SULFATE 0.125 MG TAB PO SCH ×3 (13:50→21:53)
[2020-04-13] MEDS: ACETAMINOPHEN TAB 325 MG TAB PO PRN (17:23)
--- NOTE | 2020-04-14 02:15 | P.PN ---
Subjective Progress Note Date: 04/13/20 Principal diagnosis: Colonic abscess, Crohn's disease, abdominal pain Patient is seen lying in bed today no acute complaints. She is tolerating her diet. Still having some abdominal pain but denying any nausea or vomiting. Objective - Vital Signs Vital signs: Vital Signs Temp 98.3 F 04/13/20 07:00 Pulse 41 L 04/13/20 08:40 Resp 16 04/13/20 07:00 BP 104/63 04/13/20 07:00 Pulse Ox 99 04/13/20 07:00 Intake & Output 04/12/20 04/13/20 04/13/20 18:59 06:59 18:59 Intake Total 460 Balance 460 Intake: Intake, IV Titration 460 Amount Piperacillin-Tazobactam 3 100 .375 gm In Sodium Chloride 0.9% 100 ml @ 25 mls/hr IVPB Q8HR [facility] Rx# :[id number] Sodium Chloride 0.9% 1, 360 000 ml @ 60 mls/hr IV . [id number] [facility] Rx#:[id number] Other: Voiding Method Toilet Toilet - Exam On physical examination, patient appears comfortable in no apparent distress. HEAD: Normocephalic, atraumatic. EYES: No scleral icterus. No conjunctival injection. MOUTH: No lesions, tongue midline. NECK: Trachea midline, no gross abnormalities. ABDOMEN: Soft, mildly tender to palpation. Bowel sounds are positive. No organomegaly. No guarding or rigidity. EXTREMITIES: No pedal edema. SKIN: No rashes, no jaundice. NEUROLOGIC: Alert and oriented x3. No focal deficits. - Labs CBC & Chem 7: 04/13/20 09:17 04/13/20 09:17 Labs: Abnormal Lab Results - Last 24 Hours (Table) 04/10/20 04/13/20 04/13/20 Range/Units 06:16 09:17 09:17 Hgb 10.2 L (11.4-16.0) gm/dL MCHC 29.8 L (31.0-37.0) g/dL Plt Count 635 H (150-450) k/uL Sodium 136 L (137-145) mmol/L Creatinine 0.40 L (0.52-1.04) mg/dL Glucose 106 H (74-99) mg/dL Calcium 8.3 L (8.4-10.2) mg/dL RBC Folate 1,680 H (280 - 791) ng/mL Microbiology - Last 24 Hours (Table) 04/12/20 14:50 Gram Stain - Preliminary Aspirate Body Fluid Culture - Preliminary 04/12/20 14:50 Anaerobic Culture - Preliminary Aspirate 04/08/20 16:40 Blood Culture - Preliminary Blood No Growth after 96 hours Assessment and Plan (1) Crohn disease Narrative/Plan: 45-year-old female with a history of severe Crohn's colitis started on Remicade infusions a few weeks ago was admitted to the hospital with intra-abdominal abscess. Currently on broad-spectrum antibiotic therapies. Collection of fluid does not appear large enough for IR guided drainage placement and patient is feeling better on broad-spectrum antibiotic therapy at this time, she was able to have aspiration of approximately 10 mL of fluid from the abscess.. Current Visit: Yes Status: Acute Code(s): K50.90 - CROHN'S DISEASE, UNSPECIFIED, WITHOUT COMPLICATIONS SNOMED Code(s): 81111818 (2) LLQ abdominal pain Current Visit: Yes Status: Acute Code(s): R10.32 - LEFT LOWER QUADRANT PAIN SNOMED Code(s): 167322809 (3) Left lower quadrant abdominal abscess Current Visit: Yes Status: Acute Code(s): K65.1 - PERITONEAL ABSCESS SNOMED Code(s): 89166981 Plan: Supportive care Continue broad-spectrum antibiotic therapy Steroids discontinued due to bradycardia Okay for diet, advance per surgical recommendations Patient will need follow-up after discharge for continued management of underlying Crohn's disease Thank you for allowing us to participate in the care of the patient we will continue to follow
[2020-04-14] MEDS: SODIUM CHLORIDE 0.9% 1,000 ML IV SCH (05:15)
[2020-04-14] MEDS: ACETAMINOPHEN TAB 325 MG TAB PO PRN ×2 (05:48→11:52)
[2020-04-14 08:43] LABS: Basophils % (A) 0 %; Eosinophils # (A) 0.1 k/uL (0-0.7); Eosinophils % (A) 1 %; HCT 32.9 % (34.0-46.0); HGB 9.7 gm/dL (11.4-16.0); Hypochromasia Marked; Lymphocytes # (A) 2.3 k/uL (1.0-4.8); Lymphocytes % (A) 28 %; MCHC 29.6 g/dL (31.0-37.0); MCV 87.9 fL (80.0-100.0); Mean Platelet Volume 6.5; Monocytes # (A) 0.3 k/uL (0-1.0); Monocytes % (A) 4 %; Neutrophils # (A) 5.5 k/uL (1.3-7.7); Neutrophils % (A) 67 %; Platelet Count 603 k/uL (150-450); RBC 3.74 m/uL (3.80-5.40); RDW 14.9 % (11.5-15.5); WBC 8.2 k/uL (3.8-10.6)
[2020-04-14] MEDS: FERROUS SULFATE 325 MG TAB PO SCH ×2 (09:08→11:53)
[2020-04-14] MEDS: PIPERACILLIN-TAZOBACTAM 3.375 GM in SODIUM CHLORIDE 0.9% 100 ML IVPB SCH (09:09)
[2020-04-14] MEDS: HYOSCYAMINE SULFATE 0.125 MG TAB PO SCH (09:09)
--- NOTE | 2020-04-14 09:13 | P.PN ---
Progress Note - Text Progress Note Date: 04/14/20 The patient feels better today. She states her pain is improved. On exam vital signs are stable. Abdomen soft. There is some mild left-sided tenderness. Patient has improved today. Patient stable for discharge. She'll follow-up bIn my office next week.
[2020-04-14] MEDS ORDERED: PANTOPRAZOLE 40 MG TABLET PO SCH (12:45)
--- NOTE | 2020-04-14 13:30 | P.PN ---
Subjective HISTORY OF PRESENTING ILLNESS This is a pleasant 45-year-old female past medical history significant for crohn's disease. 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 She is seen and examined sitting up in bed. She continue to have abdominal discomfor t on the left side. She has been up ambulating around the room without difficulty. She has no dizziness, shortness of breath, chest pain, nausea, diaphoresis or palpitations. Blood pressure 94/55 heart rate between 40-50 on telemetry. PHYSICAL EXAMINATION CONSTITUTIONAL: No apparent distress. HEENT: Head is normocephalic. Pupils are equal, round. Sclerae anicteric. Mucous membranes of the mouth are moist. No JVD. No carotid bruit. CHEST EXAMINATION: Lungs are clear to auscultation. No chest wall tenderness is noted on palpation or with deep breathing. HEART EXAMINATION: Regular rate and rhythm. S1, S2 heard. No murmurs, gallops or rub. EXTREMITIES: 2+ peripheral pulses, no lower extremity edema and no calf tenderness. ASSESSMENT Sinus bradycardia, asymptomatic Colitis Abdominal abscess PLAN Stable on current regimen. Discussed with her the symptoms to be mindful of secondary to bradycardia and to call the office or come to ER. She has been advised to check her pulse daily and keep a record at home to bring with her to follow up appointment with Dr. Colin in 1-2 weeks. Nurse Practitioner note has been reviewed, I agree with a documented findings and plan of care. Patient was seen and examined. Objective - Vital Signs Vital signs: Vital Signs Temp 97.4 F L 04/14/20 07:00 Pulse 43 L 04/14/20 09:14 Resp 15 04/14/20 07:00 BP 94/55 04/14/20 07:00 Pulse Ox 99 04/14/20 07:00 Intake & Output 04/13/20 04/14/20 04/14/20 18:59 06:59 18:59 Other: Voiding Method Toilet # Voids 2 - Labs CBC & Chem 7: 04/14/20 07:34 04/13/20 09:17 Labs: Abnormal Lab Results - Last 24 Hours (Table) 04/14/20 Range/Units 07:34 RBC 3.74 L (3.80-5.40) m/uL Hgb 9.7 L (11.4-16.0) gm/dL Hct 32.9 L (34.0-46.0) % MCHC 29.6 L (31.0-37.0) g/dL Plt Count 603 H (150-450) k/uL Microbiology - Last 24 Hours (Table) 04/12/20 14:50 Gram Stain - Preliminary Aspirate Body Fluid Culture - Preliminary Gram Neg Bacilli 04/08/20 16:40 Blood Culture - Preliminary Blood No Growth after 120 hours
--- NOTE | 2020-04-14 13:40 | P.DS ---
Providers Date of admission: 04/08/20 16:28 Expected date of discharge: 04/14/20 Attending physician: Óscar Wei MD Consults: 04/08/20 16:06 Consult Physician Stat Consulting Provider: Lobo Welch Consult Reason/Comments: Left lower quadrant abscess Do you want consulting provider notified?: Yes 04/08/20 17:40 Consult Physician Routine Consulting Provider: Sadie Kelley Consult Reason/Comments: crohn Do you want consulting provider notified?: Yes 04/12/20 09:14 Consult Physician Routine Consulting Provider: Giovani Kelley Consult Reason/Comments: bradycardia Do you want consulting provider notified?: Yes Primary care physician: [facility] Course: This is a 45-year-old female with past medical history noted below who presented to the emergency room with worsening abdominal pain and discomfort. Patient was evaluated in the ER and admitted to the hospital for further management of her medical problems noted below. Crohn disease exacerbation/colitis Seen and evaluated by GI. Started on IV steroids that had unusual reaction with bradycardia. Overall condition improved. Patient was able to tolerate oral diet. Plan to follow-up in the office as directed. Maintained on Remicade Abdominal abscess Status post CT-guided drainage, no drain could be placed due to small abscess s ize. Started on broad-spectrum antibiotic and will be switched to oral Augmentin for 5 days course upon discharge Blood cultures negative Cleared by general surgery for discharge Sinus bradycardia Seen and evaluated by cardiology. Echo with no acute findings. TSH normal Started on Levsin as prescribed by cardiology Follow-up in the office Anemia, iron deficiency Stools for occult blood positive Continue iron supplement S/p 1 unit of PRBCs on 04/10 Patient will be discharged home in a stable condition. Follow-up with GI and cardiology in the office as directed. For further details about this hospitalization please refer to the chart. Patient Condition at Discharge: Stable Plan - Discharge Summary Discharge Rx Participant: Yes New Discharge Prescriptions: New Hyoscyamine Sulfate [Levsin] 0.125 mg PO TID #90 tab Amoxic-Pot Clav 875-125Mg [Augmentin 875-125] 1 tab PO Q12HR 5 Days #10 tab Continue Ferrous Sulfate [Iron (65 MG Elemental)] 325 mg PO DAILY Acetaminophen Tab [Tylenol] 650 - 975 mg PO Q4H PRN PRN Reason: Pain Or Fever > 100.5 inFLIXimab [Remicade] 100 mg IV DIRECTED Discharge Medication List Ferrous Sulfate [Iron (65 MG Elemental)] 325 mg PO DAILY 12/15/19 [History] Acetaminophen Tab [Tylenol] 650 - 975 mg PO Q4H PRN 04/08/20 [History] inFLIXimab [Remicade] 100 mg IV DIRECTED 04/08/20 [History] Amoxic-Pot Clav 875-125Mg [Augmentin 875-125] 1 tab PO Q12HR 5 Days #10 tab 04/14/20 [Rx] Hyoscyamine Sulfate [Levsin] 0.125 mg PO TID #90 tab 04/14/20 [Rx] Follow up Appointment(s)/Referral(s): Thomas Colin MD [STAFF PHYSICIAN] - 04/27/20 1:30 pm Sadie Kelley MD [STAFF PHYSICIAN] - 2 Weeks (Has appt on 04/26/[address] Kelley ) Albertina Grider MD [Primary Care Provider] - 04/21/20 11:20 am Lobo Welch MD [STAFF PHYSICIAN] - 04/22/20 2:30 pm Patient Instructions/Handouts: Crohn Disease (DC), Abscess Incision and Drainage (DC) Discharge Disposition: HOME SELF-CARE
[2020-04-14 14:25] VITALS: BP 103/61; PULSE 49; RESP 16; TEMP 98.3
[2020-04-14] MEDS: MAG HYDROX/AL HYDROX/SIMETH 30 ML CUP PO PRN (14:33)
--- NOTE | 2020-04-17 02:18 | CDI ---
Documentation Clarification Form Date: 04/17/2020 From: Kevin Umanzor Phone: If you have a question about this query, please contact Elvira Panchla, Physics Technical Officer at [phone] between 8am and 5pm. Admit Date: 04/08/2020 Discharge Date: 04/14/2020 Patient Name: Isaura Magallon Visit Number: [id number] ATTENTION: The Clinical Documentation Specialists (CDI) and [facility] Coding Staff appreciate your assistance in clarifying documentation. Please respond to the clarification below the line at the bottom and electronically sign. The CDI & [facility] Coding staff will review the response and follow-up if needed. Please note: Queries are made part of the Legal Health Record. If you have any questions, please contact the author of this message via ITS. Dear Tiara Cox MD., Anemia is documented in the DS as " Anemia, iron deficiency Stools for occult blood positive S/p 1 unit of PRBCs on 04/10 " History/Risk Factors: Crohns disease, Abdominal Abscess Hemoglobin: 04/08 9.3L and 04/10 6.7L Hematocrit: 04/08 31.2L and 04/10 23.5 L Treatment: Continue iron supplement S/p 1 unit of PRBCs on 04/10 In order to capture the severity of condition, please clarify the type of anemia and etiology if known:. Acute blood loss anemia Iron deficiency anemia Both (ABLA and TEJ) Other, please specify MTDD
--- NOTE | 2020-04-19 22:36 | CDI ---
Documentation Clarification Form Date: 04/20/2020 From: Kevin Umanzor Phone: If you have a question about this query, please contact Elvira Panchal, Dairy Farm Manager at [phone] between 8am and 5pm. Admit Date: 04/08/2020 Discharge Date: 04/14/2020 Patient Name: Isaura Magallon Visit Number: [id number] ATTENTION: The Clinical Documentation Specialists (CDI) and [facility] Coding Staff appreciate your assistance in clarifying documentation. Please respond to the clarification below the line at the bottom and electronically sign. The CDI & [facility] Coding staff will review the response and follow-up if needed. Please note: Queries are made part of the Legal Health Record. If you have any questions, please contact the author of this message via ITS. Dear Tiara Cox., The patient presented with Crohn disease exacerbation/colitis. Abdominal abscess Status post CT-guided drainage, no drain could be placed due to small abscess size. Started on broad-spectrum antibiotic and will be switched to oral Augmentin for 5 days course upon discharge Blood cultures negative Cleared by general surgery for discharge History/Risk Factors: Anemia- Iron deficiency Radiology findings:Most prominent inflammatory changes in the left lower quadrant near the distal transverse colon which has a inferior course which is favored source for a 4.2 cm irregular thick-walled abscess anteriorly at this level.Very little free fluid within the abscess which has more complex and fecal material and thickened irregular septated alegre. Treatment: IV steroids, Remicade , fine needle aspiration Successful CT guided fine needle aspiration of a left upper quadrant abscess cavity In your professional opinion, can you please clarify Abdominal cavity abscess related to Crohn's disease? YES Related Crohn's Disease NO - Not Related to Crohn's disease Other, please specify Unable to determine) MTDD
== END 2020-04-14 15:23 | disposition home or self-care (01) | DRG 387 ==
LOC: EC 13:32 → 6PED 16:28 → 4SSUR 04-11 15:22
PROVIDERS: ADMIT Internal Medicine; ATTEND Internal Medicine
PROC: 0W9G3ZX Drainage of Peritoneal Cavity, Percutaneous Approach, Diagnostic (ICD-10-PCS; principal; 2020-04-12)
PROC: 30233N1 Transfusion of Nonautologous Red Blood Cells into Peripheral Vein, Percutaneous Approach (ICD-10-PCS; 2020-04-12)
DX: K50.114 Crohn's disease of large intestine with abscess (principal); R00.1 Bradycardia, unspecified; D63.8 Anemia in other chronic diseases classified elsewhere; D50.9 Iron deficiency anemia, unspecified; Z11.59 Encounter for screening for other viral diseases
CPT/HCPCS: 36415; 74177; 75989; 77012; 80048; 80053; 81001; 82150; 82272; 82607; 82747; 83540; 83550; 83605; 83690; 83735; 84100; 84443; 84466; 84484; 85025; 85045; 85610; 85652; 85730; 86140; 86850; 86900; 86901; 86920; 87040; 87070; 87075; 87077; 87086; 87186; 87205; 88173; 88305; 93005; 93306; 96361; 96365; 96375; 96376; 99285

== ENCOUNTER 2020-04-16 20:12 | Inpatient (IN) | payer BC ==
[2020-04-16] MEDS ORDERED: ACETAMINOPHEN TAB 500 MG TAB PO STA (20:34)
[2020-04-16] MEDS ORDERED: SODIUM CHLORIDE 0.9% 1,000 ML IV STA (20:34)
[2020-04-16 21:16] LABS: Basophils % (A) 0 %; Eosinophils # (A) 0.1 k/uL (0-0.7); Eosinophils % (A) 1 %; HCT 33.8 % (34.0-46.0); HGB 10.2 gm/dL (11.4-16.0); Hypochromasia Moderate; Lymphocytes # (A) 1.4 k/uL (1.0-4.8); Lymphocytes % (A) 9 %; MCH 25.4 pg (25.0-35.0); MCHC 30.1 g/dL (31.0-37.0); MCV 84.3 fL (80.0-100.0); Mean Platelet Volume 6.6; Monocytes # (A) 0.4 k/uL (0-1.0); Monocytes % (A) 3 %; Neutrophils # (A) 12.8 k/uL (1.3-7.7); Neutrophils % (A) 86 %; Platelet Count 628 k/uL (150-450); RBC 4.01 m/uL (3.80-5.40); RDW 15.8 % (11.5-15.5); WBC 14.9 k/uL (3.8-10.6)
[2020-04-16] MEDS ORDERED: cefTRIAXone IN SWFI 1,000 MG/10 ML SYRINGE IVP STA (21:21)
--- NOTE | 2020-04-16 21:22 | ED ---
Fever HPI - General Source: patient Mode of arrival: ambulatory Limitations: no limitations <Titus Tam - Last Filed: 04/16/20 23:05> <Belem Lagos - Last Filed: 04/18/20 02:30> - General Chief Complaint: Fever Stated Complaint: Stomach Abcess Time Seen by Provider: 04/16/20 20:30 - History of Present Illness Initial Comments: Patient is a 45-year-old female presenting to emergency Department with a chief complaint of an abscess. Patient states she was recently discharged from the hospital after an abdominal abscess was surgically drained. States she continue taking antibiotics after discharge but she spiked a fever today of 101.2. Patient reports she did not take antipyretics and came straight to the emergency department. Patient reports since discharge, the abscess site has continuing to increase in pain. She also reports she's noticed a "hard mass"on the drainage site. Denies any night sweats or chills. Denies any fatigue. States her blood pressures typically in the high 90s. Patient states she was diagnosed with Crohn's over the last year and has so far received 1 infusion of Remicade which has worked well for her. (Titus Tam) - Related Data Home Medications Medication Instructions Recorded Confirmed Ferrous Sulfate [Iron (65 MG 325 mg PO DAILY 12/15/19 04/16/20 Elemental)] Acetaminophen Tab [Tylenol] 650 - 975 mg PO Q4H PRN 04/08/20 04/16/20 inFLIXimab [Remicade] 100 mg IV Q14D 04/08/20 04/16/20 Hyoscyamine Sulfate [Levsin] 0.125 mg PO TID@0900,1600,2300 04/16/20 04/16/20 Previous Rx's Medication Instructions Recorded Amoxic-Pot Clav 875-125Mg 1 tab PO Q12HR 5 Days #10 tab 04/14/20 [Augmentin 875-125] Allergies Allergy/AdvReac Type Severity Reaction Status Date / Time methylprednisolone AdvReac Unknown Verified 04/16/20 21:55 [From Solu-Medrol] Review of Systems ROS Other: All systems not noted in ROS Statement are negative. <Titus Tam - Last Filed: 04/16/20 23:05> ROS Other: All systems not noted in ROS Statement are negative. <Belem Lagos All - Last Filed: 04/18/20 02:30> ROS Statement: Those systems with pertinent positive or pertinent negative responses have been documented in the HPI. Past Medical History Additional Past Medical History / Comment(s): crohn's History of Any Multi-Drug Resistant Organisms: C-DIFF Date of last positivie culture/infection: 2019 MDRO Source:: bowel Past Surgical History: No Surgical Hx Reported Additional Past Surgical History / Comment(s): colonoscopy Past Anesthesia/Blood Transfusion Reactions: No Reported Reaction Past Psychological History: No Psychological Hx Reported Smoking Status: Current some day smoker Past Alcohol Use History: None Reported Past Drug Use History: None Reported - Past Family History Mother History Unknown: Yes <Titus Tam - Last Filed: 04/16/20 23:05> General Exam Limitations: no limitations General appearance: alert, in no apparent distress Head exam: Present: atraumatic, normocephalic, normal inspection Eye exam: Present: normal appearance, PERRL, EOMI Pupils: Present: normal accommodation ENT exam: Present: normal exam, normal oropharynx, mucous membranes moist, TM's normal bilaterally, normal external ear exam Neck exam: Present: normal inspection, full ROM Respiratory exam: Present: normal lung sounds bilaterally. Absent: respiratory distress, wheezes, rales Cardiovascular Exam: Present: regular rate, normal rhythm, normal heart sounds GI/Abdominal exam: Present: soft, tenderness (TendernessLower quadrant. No overlying cellulitic skin changes. No active drainage at this time.), normal bowel sounds. Absent: distended, guarding, rebound Extremities exam: Present: normal inspection, full ROM Back exam: Present: normal inspection, full ROM. Absent: tenderness Neurological exam: Present: alert, oriented X3, CN II-XII intact, normal gait Psychiatric exam: Present: normal affect, normal mood Skin exam: Present: warm, dry, intact, normal color <Titus Tam - Last Filed: 04/16/20 23:05> Course Vital Signs 04/16/20 04/16/20 04/16/20 20:20 21:49 22:00 Temperature 99.8 F H 100.6 F H 98.6 F Pulse Rate 112 H 86 89 Respiratory 20 19 20 Rate Blood Pressure 96/63 96/62 95/61 Blood Pressure [Left Arm] O2 Sat by Pulse 96 98 99 Oximetry 04/16/20 04/17/20 04/17/20 23:25 00:00 00:13 Temperature 97.9 F 97.9 F 98.2 F Pulse Rate 78 76 Respiratory 16 18 18 Rate Blood Pressure 88/50 92/50 Blood Pressure 94/60 [Left Arm] O2 Sat by Pulse 97 98 Oximetry Medical Decision Making - Lab Data Result diagrams: 04/16/20 21:05 04/16/20 21:05 <Titus Tam - Last Filed: 04/16/20 23:05> - Lab Data Result diagrams: 04/16/20 21:05 04/16/20 21:05 <Belem Lagos - Last Filed: 04/18/20 02:30> - Medical Decision Making Patient is a 45-year-old female presenting to emergency Department with a chief complaint of stomach abscess. On exam No overlying cellulitic skin changes. Patient is tender at the site where the abscess was aspirated. Also palpable mass is noted. CBC reveals leukocytosis of 14.9. CMP shows mild hyponatremia. Lactic acid is within normal levels. Blood culture pending. Patient was initially febrile and started on antipyretics. Patient was recently diagnosed with Crohn's disease. She does have nonbloody diarrhea baseline. CT of abdomen and pelvis reveals an abscess in the left side of the anterior abdomen adjacent to the descending colon. That this appears to have increased in size compared to last imaging study. There is also increased inflammatory changes and stranding compared to the last CT. Patient started on Rocephin in the emergency department. Patient also given IV fluids. Patient is typically hypotensive at baseline. Case discussed with . Patient will be admitted for further medical management. Admitting physician is Dr adriano Max. surgery consulted. (Titus Tam) I was available for consultation in the emergency department. The history and physical exam were done by the midlevel provider. I was consulted for this patients care. I reviewed the case with the midlevel provider and based on their presentation of the patient, I agree with the assessment, medical decision making and plan of care as documented. Chart was dictated using [employer] dictation software. Attempts were made to correct any dictation errors however some typographical errors may persist. Patient was seen during a national state of emergency due to the Covid-19 pandemic. (Belem Lagos) - Lab Data Lab Results 04/16/20 04/16/20 04/16/20 Range/Units 21:05 21:05 21:05 WBC 14.9 H (3.8-10.6) k/uL RBC 4.01 (3.80-5.40) m/uL Hgb 10.2 L (11.4-16.0) gm/dL Hct 33.8 L (34.0-46.0) % MCV 84.3 (80.0-100.0) fL MCH 25.4 (25.0-35.0) pg MCHC 30.1 L (31.0-37.0) g/dL RDW 15.8 H (11.5-15.5) % Plt Count 628 H (150-450) k/uL Neutrophils % 86 % Lymphocytes % 9 % Monocytes % 3 % Eosinophils % 1 % Basophils % 0 % Neutrophils # 12.8 H (1.3-7.7) k/uL Lymphocytes # 1.4 (1.0-4.8) k/uL Monocytes # 0.4 (0-1.0) k/uL Eosinophils # 0.1 (0-0.7) k/uL Basophils # 0.0 (0-0.2) k/uL Hypochromasia Moderate Sodium 132 L (137-145) mmol/L Potassium 3.9 (3.5-5.1) mmol/L Chloride 98 (98-107) mmol/L Carbon Dioxide 25 (22-30) mmol/L Anion Gap 9 mmol/L BUN 9 (7-17) mg/dL Creatinine 0.44 L (0.52-1.04) mg/dL Est GFR (CKD-EPI)AfAm >90 (>60 ml/min/1.73 sqM) Est GFR (CKD-EPI)NonAf >90 (>60 ml/min/1.73 sqM) Glucose 98 (74-99) mg/dL Plasma Lactic Acid Carlos 0.7 (0.7-2.0) mmol/L Calcium 8.2 L (8.4-10.2) mg/dL Total Bilirubin 0.3 (0.2-1.3) mg/dL AST 12 L (14-36) U/L ALT 7 (4-34) U/L Alkaline Phosphatase 103 (38-126) U/L Total Protein 5.8 L (6.3-8.2) g/dL Albumin 3.0 L (3.5-5.0) g/dL Disposition Is patient prescribed a controlled substance at d/c from ED?: No Time of Disposition: 23:11 <Titus Tam - Last Filed: 04/16/20 23:05> <Belem Lagos - Last Filed: 04/18/20 02:30> Clinical Impression: Abscess of abdominal wall, Fever Disposition: ADMITTED IP TO THIS HOSP Condition: Stable
[2020-04-16 21:24] LABS: ALT 7 U/L (4-34); AST 12 U/L (14-36); African American GFR (CKD) >90 (>60 ml/min/1.73 sqM); Alkaline Phosphatase 103 U/L (38-126); Anion Gap 9 mmol/L; Blood Urea Nitrogen 9 mg/dL (7-17); Calcium 8.2 mg/dL (8.4-10.2); Carbon Dioxide 25 mmol/L (22-30); Chloride 98 mmol/L (98-107); Glucose 98 mg/dL (74-99); Non-African American GFR(CKD) >90 (>60 ml/min/1.73 sqM); Potassium 3.9 mmol/L (3.5-5.1); Sodium 132 mmol/L (137-145); Total Bilirubin 0.3 mg/dL (0.2-1.3); Total Protein 5.8 g/dL (6.3-8.2)
--- NOTE | 2020-04-16 22:39 | CT ---
EXAMINATION TYPE: CT abdomen pelvis w con DATE OF EXAM: 04/16/2020 COMPARISON: 04/08/2020 HISTORY: abscess, fever CT DLP: 692.4 mGycm Automated exposure control for dose reduction was used. CONTRAST: Performed with IV Contrast, patient injected with 100 mL of Isovue 300. Multiple axial sections were obtained from the diaphragm to the floor the pelvis with intravenous con trast. There are small bilateral pleural effusions. Heart size is normal. There is no pericardial effusion. Liver spleen stomach pancreas gallbladder appear normal. Bile ducts are not dilated.. There is no adrenal mass. Kidneys show satisfactory contrast opacification. There is no hydronephrosi s. Ureters are not dilated. There is no retroperitoneal adenopathy. Bladder distends smoothly. There is no inguinal hernia. There is mild free fluid in the pelvis. Uterus is retroverted. Lumbar spine is intact. Bony pelvis is intact. There is fat stranding and wall thickening involving the splenic flexure of the colon and the descend ing colon. There is 5 cm mass with fluid level in the left mid abdomen involving the anterior abdomin al wall with subcutaneous air over the lateral left mid abdomen. This is consistent with an abscess a nd appears slightly larger than old exam. I see no evidence of a bowel obstruction. IMPRESSION: Abscess in the left side of the anterior abdomen adjacent to the descending colon increased slightly compared to previous exam. Inflammatory changes and fat stranding increased compared to last exam. Wa ll thickening is nonspecific of the splenic flexure and the descending colon and could relate to coli tis or other inflammatory bowel disease. There is some mild free fluid in the pelvis slightly increased compared to old exam.
[2020-04-16] MEDS ORDERED: NALOXONE 0.4 MG/ML 1 ML VIAL IV PRN (23:03)
[2020-04-16] MEDS: SODIUM CHLORIDE 0.9% 1,000 ML IV SCH (23:23)
[2020-04-16 23:24] LABS: Appearance,Urine Clear (Clear); Bilirubin,Urine Negative (Negative); Blood,Urine Negative (Negative); Color,Urine Colorless; Glucose,Urine (UA) Negative (Negative); Ketones,Urine Negative (Negative); Leukocyte Esterase,Urine Negative (Negative); Nitrite,Urine Negative (Negative); PH, Urine 7.5 (5.0-8.0); Protein,Urine Negative (Negative); Specific Gravity,Urine 1.025 (1.001-1.035); Urobilinogen,Urine <2.0 mg/dL (<2.0)
[2020-04-17] MEDS: ACETAMINOPHEN TAB 325 MG TAB PO PRN ×2 (04:40→15:41)
[2020-04-17] MEDS: MORPHINE SULFATE 4 MG/ML SYRINGE IV PRN ×3 (09:17→21:11)
[2020-04-17] MEDS: SODIUM CHLORIDE 0.9% 1,000 ML IV SCH (12:36)
--- NOTE | 2020-04-17 13:07 | P.GSCN ---
History of Present Illness Consult date: 04/17/20 History of present illness: CHIEF COMPLAINT: Abdominal wall abscess HISTORY OF PRESENT ILLNESS: The patient is a 45-year-old female with history of Crohn's disease who was recently hospitalized from 04/08/2020 to 04/14/2020 for abdominal wall abscess. She was recently discharged [address]-guided drainage of the abscess which has now increased in size. She reports developing fevers at home followed by rigors and cold sweats prompting presentation and ret urn to the emergency room. Her white blood cell count is elevated. Also she was recently diagnosed with Crohn's disease less than 1 year ago with start of immunotherapy less than 1 month ago. She reports left lower quadrant abdominal pain. Gen. surgery is consulted for abdominal wall abscess. She reports change in bowel habits including diarrhea. She is passing flatus. She is tolerating diet. She reports being discharged home with oral antibiotics only. She reports intolerance to steroids. PAST MEDICAL HISTORY: See list and reviewed. PAST SURGICAL HISTORY: See list and reviewed. MEDICATIONS: See list and reviewed. ALLERGIES: See list and reviewed. SOCIAL HISTORY: See list and reviewed. FAMILY HISTORY: See list and reviewed. REVIEW OF ORGAN SYSTEMS: CONSTITUTIONAL: Recent fevers or chills. EYES: Denies any trouble with vision. No glasses. HEENT: No difficulties with hearing. No nosebleeds. No difficulty swallowing. RESPIRATORY: Denies pneumonia. Denies any troubles with breathing or dyspnea on exertion. CARDIOVASCULAR: Denies any chest pain, palpitations, or recent heart attacks. GASTROINTESTINAL: Denies fatty food intolerance. Has change in bowel habits with diarrhea. Crohn's disease diagnosed less than one year ago. GENITOURINARY: Denies any blood in urine or increased urinary frequency. NEUROLOGICAL: Denies any numbness or tingling along the distal extremities. No seizure disorders or headaches. MUSCULOSKELETAL: Denies any back pain, stiffness or joint arthritis. SKIN: Recent abdominal wall abscess. No cancer. PSYCHIATRIC: Denies current depression or suicidal thoughts. ENDOCRINE: Denies current thyroid disorders. Denies any blood sugar glucose intolerance. HEME/LYMPHATIC: Denies any lumps and bumps around the neck. No recent deep venous thrombosis. ALLERGY/IMMUNOLOGY: No immunoglobulin therapy. No immune deficiencies. BREAST: Denies current breast lumps, pain or nipple discharge. PHYSICAL EXAM: VITALS: Reviewed CONSTITUTIONAL: Well developed and in no acute distress. EYES: Conjuctivae without sclera icterus. Pupils are equally round and reactive to light. Extraocular movements grossly intact. HEAD, EARS, NOSE, THROAT: Moist buccal mucosa. Head is atraumatic, normocephalic. Hears conversational speech. No nasal drainage. NECK: Supple. No JV distention. No thyroidomegaly. RESPIRATORY: Non-labored respirations and equal bilateral excursions. No gross wheezes. CARDIOVASCULAR: Regular rate and rhythm. Extremities without moderate edema. Palpable 2+ radial pulses. ABDOMEN: Soft. Mild fullness along the left lower quadrant. No cellulitis. CT-guided puncture jared along the lower abdomen identified. No peritonitis. LYMPH: No neck lymphadenopathy. MUSCULOSKELETAL: Gait within normal limits. Range of motion bilateral upper extremities within normal limits. Nail and fingers with good capillary refill. SKIN: Warm and well perfused with good skin turgor. NEUROLOGIC: Cranial nerves II through XII grossly intact. Sensation upper and extremities intact. No focal or lateralizing signs. PSYCH: Appropriate affect. Alert and oriented to person, place and time. Displays appropriate insight. CLINCAL LABS: Reviewed. WBC elevated at 14.9. On previous hospitalization, WBC was normal. Platelet count elevated at 628. Sodium level low at 132. IMAGING: Independently reviewed CT of the abdomen and pelvis demonstrates thickening along the mid descending colon with air tracking along the left abdominal wall to skin. RADIOLOGY: Report reviewed CT of the abdomen and pelvis 5 cm abdominal abscess along the left abdominal wall. RECORDS: previous old records reviewed with CT guided drainage 04/12/2020 with 10 mL of aspirate. Microbiology confirms Klebsiella, E. coli, Streptococcus, and [place] with resistance to ampicillin. ASSESSMENT: 1. Complicated Crohn's disease 2. Abdominal wall abscess PLAN: 1. With patient's intolerance to steroids and complicated presentation, referral/transfer to tertiary care center also described as patient may need surgical intervention with colectomy and ostomy creation and drainage of abdominal wall abscess. 2. At this time, recommend IV antibiotics with consultation to GI for complicated Crohn's disease. 3. May have clear liquid diet in the interim. Thank you for this kind consultation. Past Medical History Additional Past Medical History / Comment(s): crohn's History of Any Multi-Drug Resistant Organisms: C-DIFF Year Discovered:: 2019 MDRO Source:: bowel Past Surgical History: No Surgical Hx Reported Additional Past Surgical History / Comment(s): colonoscopy Past Anesthesia/Blood Transfusion Reactions: No Reported Reaction Past Psychological History: No Psychological Hx Reported Smoking Status: Current some day smoker Past Alcohol Use History: None Reported Past Drug Use History: None Reported - Past Family History Mother History Unknown: Yes Medications and Allergies Home Medications Medication Instructions Recorded Confirmed Type Ferrous Sulfate [Iron (65 MG 325 mg PO DAILY 12/15/19 04/16/20 History Elemental)] Acetaminophen Tab [Tylenol] 650 - 975 mg PO Q4H PRN 04/08/20 04/16/20 History inFLIXimab [Remicade] 100 mg IV Q14D 04/08/20 04/16/20 History Amoxic-Pot Clav 875-125Mg 1 tab PO Q12HR 5 Days #10 tab 04/14/20 04/16/20 Rx [Augmentin 875-125] Hyoscyamine Sulfate [Levsin] 0.125 mg PO TID@0900,1600,2300 04/16/20 04/16/20 History Allergies Allergy/AdvReac Type Severity Reaction Status Date / Time methylprednisolone AdvReac Unknown Verified 04/16/20 21:55 [From Solu-Medrol] Surgical - Exam Vital Signs Temp Pulse Resp BP Pulse Ox 99.8 F H 112 H 20 96/63 96 04/16/20 20:20 04/16/20 20:20 04/16/20 20:20 04/16/20 20:20 04/16/20 20:20 Results - Labs 04/16/20 21:05 04/16/20 21:05 Abnormal Lab Results - Last 24 Hours (Table) 04/16/20 04/16/20 Range/Units 21:05 21:05 WBC 14.9 H (3.8-10.6) k/uL Hgb 10.2 L (11.4-16.0) gm/dL Hct 33.8 L (34.0-46.0) % MCHC 30.1 L (31.0-37.0) g/dL RDW 15.8 H (11.5-15.5) % Plt Count 628 H (150-450) k/uL Neutrophils # 12.8 H (1.3-7.7) k/uL Sodium 132 L (137-145) mmol/L Creatinine 0.44 L (0.52-1.04) mg/dL Calcium 8.2 L (8.4-10.2) mg/dL AST 12 L (14-36) U/L Total Protein 5.8 L (6.3-8.2) g/dL Albumin 3.0 L (3.5-5.0) g/dL Diabetes panel 04/16/20 Range/Units 21:05 Sodium 132 L (137-145) mmol/L Potassium 3.9 (3.5-5.1) mmol/L Chloride 98 (98-107) mmol/L Carbon Dioxide 25 (22-30) mmol/L BUN 9 (7-17) mg/dL Creatinine 0.44 L (0.52-1.04) mg/dL Glucose 98 (74-99) mg/dL Calcium 8.2 L (8.4-10.2) mg/dL AST 12 L (14-36) U/L ALT 7 (4-34) U/L Alkaline Phosphatase 103 (38-126) U/L Total Protein 5.8 L (6.3-8.2) g/dL Albumin 3.0 L (3.5-5.0) g/dL Calcium panel 04/16/20 Range/Units 21:05 Calcium 8.2 L (8.4-10.2) mg/dL Albumin 3.0 L (3.5-5.0) g/dL Pituitary panel 04/16/20 Range/Units 21:05 Sodium 132 L (137-145) mmol/L Potassium 3.9 (3.5-5.1) mmol/L Chloride 98 (98-107) mmol/L Carbon Dioxide 25 (22-30) mmol/L BUN 9 (7-17) mg/dL Creatinine 0.44 L (0.52-1.04) mg/dL Glucose 98 (74-99) mg/dL Calcium 8.2 L (8.4-10.2) mg/dL Adrenal panel 04/16/20 Range/Units 21:05 Sodium 132 L (137-145) mmol/L Potassium 3.9 (3.5-5.1) mmol/L Chloride 98 (98-107) mmol/L Carbon Dioxide 25 (22-30) mmol/L BUN 9 (7-17) mg/dL Creatinine 0.44 L (0.52-1.04) mg/dL Glucose 98 (74-99) mg/dL Calcium 8.2 L (8.4-10.2) mg/dL Total Bilirubin 0.3 (0.2-1.3) mg/dL AST 12 L (14-36) U/L ALT 7 (4-34) U/L Alkaline Phosphatase 103 (38-126) U/L Total Protein 5.8 L (6.3-8.2) g/dL Albumin 3.0 L (3.5-5.0) g/dL Assessment and Plan (1) Abscess of abdominal wall Current Visit: Yes Status: Acute Code(s): L02.211 - CUTANEOUS ABSCESS OF ABDOMINAL WALL SNOMED Code(s): 71552183 (2) Fever Current Visit: Yes Status: Acute Code(s): R50.9 - FEVER, UNSPECIFIED SNOMED Code(s): 611024920 (3) Crohn disease Current Visit: No Status: Acute Code(s): K50.90 - CROHN'S DISEASE, UNSPECIFIED, WITHOUT COMPLICATIONS SNOMED Code(s): 38811472 (4) LLQ abdominal pain Current Visit: No Status: Acute Code(s): R10.32 - LEFT LOWER QUADRANT PAIN SNOMED Code(s): 285828049 (5) Left lower quadrant abdominal abscess Current Visit: No Status: Acute Code(s): K65.1 - PERITONEAL ABSCESS SNOMED Code(s): 91554212 (6) Sepsis Current Visit: Yes Status: Acute Code(s): A41.9 - SEPSIS, UNSPECIFIED ORGANISM SNOMED Code(s): 56262439
[2020-04-17] MEDS ORDERED: TEMAZEPAM 15 MG CAP PO PRN (14:33)
[2020-04-17] MEDS: PANTOPRAZOLE 40 MG TABLET PO SCH (15:34)
[2020-04-17] MEDS: NICOTINE 14MG/24HR PATCH TRANSDERM SCH (15:34)
[2020-04-17] MEDS: HYOSCYAMINE SULFATE 0.125 MG TAB PO SCH ×2 (15:35→21:11)
[2020-04-17] MEDS: PIPERACILLIN-TAZOBACTAM 3.375 GM in SODIUM CHLORIDE 0.9% 100 ML IVPB SCH ×2 (15:36→16:53)
[2020-04-17 15:41] LABS: INR 1.1 (<1.2); Prothrombin Time 11.2 sec (9.0-12.0)
[2020-04-17] MEDS: metroNIDAZOLE-NS PMX 500 MG in SALINE 1 100ML.BAG IVPB SCH (15:45)
[2020-04-17] MEDS ORDERED: ANIDULAFUNGIN 200 MG in SODIUM CHLORIDE 0.9% 200 ML IVPB ONE ×4 (16:00)
--- NOTE | 2020-04-17 16:55 | HP ---
HISTORY AND PHYSICAL DATE OF SERVICE: 04/17/2020 CHIEF COMPLAINT: Fever and abdominal abscess. HISTORY OF PRESENT ILLNESS: 45-year-old woman with a past medical history of history of Crohn's, history of C difficile was recently admitted with abdominal wall abscess which was drained CT-guided and the patient was given broad-spectrum antibiotics. The cultures were negative at that time. The blood culture showed multiple anaerobic bacilli and E coli Klebsiella viridans and [place] also. Currently the patient is complaining of fevers spiking up to 101.2 and significant abdominal pain and abscess. The patient came to [facility] and was admitted to the hospital for further evaluation and treatment. Abdomen/pelvis CAT scan was done which showed an abscess on the left side of the anterior abdominal wall adjacent to descending colon with increased slightly compared to the previous exam. Inflammatory changes and fat stranding increased compared to last exam. Wall thickening of the nonspecific splenic fracture and descending colon related to colitis was also noted. Patient being closely monitored at this time. The surgical evaluation by Dr. Weinberg is in progress. There is no history of fever, rigors. No history of headache, loss of consciousness, seizures at this time. PAST MEDICAL HISTORY: History of Crohn's, history of C. diff. MEDICATIONS: 1. Remicade 100 mg IV Q 40 units. 2. Levsin 0.125 mg t.i.d. 3. Iron 320 mg daily. 4. Augmentin 1 p.o. b.i.d. 5. Tylenol 650 q.4 p.r.n. ALLERGIES: SOLU-MEDROL. FAMILY HISTORY: No history of heart disease or strokes in the family. SOCIAL HISTORY: Continued smoking. No history of alcohol intake. REVIEW OF SYSTEMS: ENT: No diminished vision. No diminished hearing. CARDIOVASCULAR: No angina or palpitations. RESPIRATIONS: No cough or hemoptysis. GI no nausea or vomiting. no dysuria. NERVOUS SYSTEM: No numbness or weakness. ALLERGY/IMMUNOLOGY: No asthma or hayfever. MUSCULOSKELETAL as mentioned earlier. HEMATOLOGY/ONCOLOGY: No history of anemia. ENDOCRINE: No history of diabetes or hypothyroidism. CONSTITUTIONAL: As mentioned earlier. DERMATOLOGY: Negative. RHEUMATOLOGY: Negative. PSYCHIATRY: As mentioned earlier. PHYSICAL EXAMINATION: Alert and oriented times three. Pulse is 67. Blood pressure 91/59, respirations 16, temperature 98 degrees, pulse ox 98% on room air. HEENT are conjunctivae normal. Oral mucosa moist. NECK is no jugular venous distention. No carotid bruit. No lymph node enlargement. CARDIOVASCULAR system: S1, S2 muffled. No S3, no S4. RESPIRATORY: Breath sounds diminished in the bases. No rhonchi. No crackles. ABDOMEN: Soft. Mild diffuse distention. Significant pain and tenderness of the left abdominal wall also present. No guarding. No rigidity. Bowel sounds present. No ascites. LEGS: No edema. No swelling. NERVOUS SYSTEM: Higher functions as mentioned. Moves all four limbs. No focal deficits. Lymphatics: No lymph nodes palpable in the neck, axillae or groin. JOINTS: No active deforming arthropathy. SKIN: No ulcer, rash or bleeding. LABS: WBC 14.9, hemoglobin 10.2, sodium 132, albumin is 3. ASSESSMENT: 1. Left-sided abdominal wall abscess with failure of outpatient treatment with severe pain. 2. Crohn's disease on immunotherapy with some colitis. 3. Rule out fistula formation. 4. Increased WBC. 5. Anemia. 6. Increased platelets. 7. Hyponatremia. 8. Mild hypoalbuminemia with mild protein calorie malnutrition. 9. History of Clostridium difficile colitis. 10.History of colonoscopy. 11.FULL CODE. RECOMMENDATIONS AND DISCUSSION: This 45-year-old woman who presented with multiple complex medical issues, we will monitor the patient closely. We will continue with broad-spectrum IV antibiotics. Obtain gastroenterology/infectious disease evaluations. Surgery also has been consulted. Prognosis guarded because of multiple complex medical issues. Further recommendations to follow. Symptomatic treatment. DVT prophylaxis. See orders for details. MMODL / IJN: [id number] /
[2020-04-17] MEDS: ONDANSETRON 4 MG/2 ML VIAL IVP PRN (21:09)
[2020-04-17] MEDS: HEPARIN SODIUM,PORCINE 5,000 UNIT/ML 1 ML VIAL SQ SCH (21:11)
--- NOTE | 2020-04-18 00:07 | P.CONS ---
History of Present Illness - Reason for Consult Consult date: 04/17/20 Abdominal abscess Requesting physician: Elizabeth Samson - Chief Complaint Fever 1 day - History of Present Illness Patient is 45-year-old female with a past medical history significant for Crohn's disease recently started on biologic the patient received only one dose about a month ago, patient was admitted to this facility from April 08 till 04/14/2020 this patient who was diagnosed with abdominal abscess for the patient did have a CT-guided drainage on 04/12/2020 culture were positive for multiple pathogen including E. coli Klebsiella strep viridans [place] not albicans as well as multiple anaerobes patient was discharged home on 04/14/2020 with a 5 day course of oral Augmentin, patient is now presented back to hospital within 48 hour of discharge from hospital with concern for fever with rigors and chills, patient be complaining of pain to the left lower quadrant of abdomen is coming in to be sharp almost 78 out of 10 and no radiation with associated nausea and 1 episode of vomiting denies having any diarrhea with these symptoms the patient was evaluated by the ER physician on the wound. The patient did have a fever she was tachycardic and did have elevated white count CT of abdominal pelvis nausea and increasing abdominal wall abscess adjacent to the descending colon patient has been started on Zosyn and Flagyl infectious disease was consulted for further management of antibiotic therapy Review of Systems Positive point has been mentioned in the HPI rest of the systems are negative Past Medical History Additional Past Medical History / Comment(s): crohn's History of Any Multi-Drug Resistant Organisms: C-DIFF Year Discovered:: 2019 MDRO Source:: bowel Past Surgical History: No Surgical Hx Reported Additional Past Surgical History / Comment(s): colonoscopy Past Anesthesia/Blood Transfusion Reactions: No Reported Reaction Past Psychological History: No Psychological Hx Reported Smoking Status: Current some day smoker Past Alcohol Use History: None Reported Past Drug Use History: None Reported - Past Family History Mother History Unknown: Yes Medications and Allergies Home Medications Medication Instructions Recorded Confirmed Type Ferrous Sulfate [Iron (65 MG 325 mg PO DAILY 12/15/19 04/16/20 History Elemental)] Acetaminophen Tab [Tylenol] 650 - 975 mg PO Q4H PRN 04/08/20 04/16/20 History inFLIXimab [Remicade] 100 mg IV Q14D 04/08/20 04/16/20 History Amoxic-Pot Clav 875-125Mg 1 tab PO Q12HR 5 Days #10 tab 04/14/20 04/16/20 Rx [Augmentin 875-125] Hyoscyamine Sulfate [Levsin] 0.125 mg PO TID@0900,1600,2300 04/16/20 04/16/20 History Allergies Allergy/AdvReac Type Severity Reaction Status Date / Time methylprednisolone AdvReac Unknown Verified 04/16/20 21:55 [From [facility]] Physical Exam Vitals: Vital Signs Temp Pulse Pulse Resp BP BP BP 04/17/20 08:57 98/63 04/17/20 07:00 98.0 F 67 16 91/59 04/17/20 03:18 97.7 F 55 L 96/61 04/17/20 00:17 97.9 F 69 94/60 04/17/20 00:13 98.2 F 76 18 92/50 04/17/20 00:00 97.9 F 18 94/60 04/16/20 23:25 97.9 F 78 16 88/50 04/16/20 22:00 98.6 F 89 20 95/61 04/16/20 21:49 100.6 F H 86 19 96/62 04/16/20 20:20 99.8 F H 112 H 20 96/63 Pulse Ox 04/17/20 08:57 04/17/20 07:00 98 04/17/20 03:18 98 04/17/20 00:17 94 L 04/17/20 00:13 98 04/17/20 00:00 04/16/20 23:25 97 04/16/20 22:00 99 04/16/20 21:49 98 04/16/20 20:20 96 Intake and Output 04/16/20 04/17/20 04/17/20 22:59 06:59 14:59 Intake Total 425 Balance 425 Intake: Intake, IV Titration 425 Amount Sodium Chloride 0.9% 1, 425 000 ml @ 75 mls/hr IV . [id number] [facility] Rx#:[id number] Other: Voiding Method Toilet # Voids 1 Weight 66.678 kg 66.678 kg GENERAL DESCRIPTION: Middle-aged female lying in bed, no distress. No tachypnea or accessory muscle of respiration use. HEENT: Shows Pallor , no scleral icterus. Oral mucous membrane is dry. No phary ngeal erythema or thrush NECK: Trachea central, no thyromegaly. LUNGS: Unlabored breathing. Clear to auscultation anteriorly. No wheeze or crackle. HEART: S1, S2, regular rate and rhythm. No loud murmur ABDOMEN: Soft, left lower quadrant tenderness , mild guarding or rigidity, no organomegaly EXTREMITIES: No edema of feet. SKIN: No rash, no masses palpable. NEUROLOGICAL: The patient is awake, alert, oriented x3, mood and affect normal. Results CBC & Chem 7: 04/16/20 21:05 04/16/20 21:05 Labs: Abnormal Lab Results - Last 24 Hours (Table) 04/16/20 04/16/20 Range/Units 21:05 21:05 WBC 14.9 H (3.8-10.6) k/uL Hgb 10.2 L (11.4-16.0) gm/dL Hct 33.8 L (34.0-46.0) % MCHC 30.1 L (31.0-37.0) g/dL RDW 15.8 H (11.5-15.5) % Plt Count 628 H (150-450) k/uL Neutrophils # 12.8 H (1.3-7.7) k/uL Sodium 132 L (137-145) mmol/L Creatinine 0.44 L (0.52-1.04) mg/dL Calcium 8.2 L (8.4-10.2) mg/dL AST 12 L (14-36) U/L Total Protein 5.8 L (6.3-8.2) g/dL Albumin 3.0 L (3.5-5.0) g/dL Assessment and Plan Assessment: 1- patient presented to the hospital with sepsis in this patient who did have a fever tachycardia and elevated white count source is abdominal abscess in this patient would do have history of Crohn's disease with concern for possible beginning of a colocutaneous fistula with increasing the size of the abscess collection and feeling outpatient oral antibiotic therapy likely oral antibiotic for inadequate on her last discharge from hospital and will need more aggressive drainage as well as IV antibiotic therapy on discharge status (1) Abscess of abdominal wall Current Visit: Yes Status: Acute Code(s): L02.211 - CUTANEOUS ABSCESS OF ABDOMINAL WALL SNOMED Code(s): 00311569 (2) Sepsis Current Visit: Yes Status: Acute Code(s): A41.9 - SEPSIS, UNSPECIFIED ORGANISM SNOMED Code(s): 18681509 Plan: 1- patient benefit from complete drainage of this abscess which can be done either CT-guided or surgically 2-Zosyn 3.375 g every 8 hours 3- we will add Eraxis to cover for the non- albicans [place] We will follow on clinical condition and cultures to further adjust medication if needed Thank you for this consultation will follow this patient with you Time with Patient: Greater than 30
[2020-04-18] MEDS: PIPERACILLIN-TAZOBACTAM 3.375 GM in SODIUM CHLORIDE 0.9% 100 ML IVPB SCH ×4 (00:31→23:55)
[2020-04-18] MEDS: metroNIDAZOLE-NS PMX 500 MG in SALINE 1 100ML.BAG IVPB SCH ×4 (00:32→23:56)
[2020-04-18] MEDS: MORPHINE SULFATE 4 MG/ML SYRINGE IV PRN ×6 (00:35→21:57)
[2020-04-18] MEDS: SODIUM CHLORIDE 0.9% 1,000 ML IV SCH ×2 (03:44→15:35)
[2020-04-18] MEDS: NICOTINE 14MG/24HR PATCH TRANSDERM SCH (07:44)
[2020-04-18] MEDS: HYOSCYAMINE SULFATE 0.125 MG TAB PO SCH ×3 (08:04→21:54)
[2020-04-18] MEDS: PANTOPRAZOLE 40 MG TABLET PO SCH ×2 (08:04→17:48)
[2020-04-18] MEDS: HEPARIN SODIUM,PORCINE 5,000 UNIT/ML 1 ML VIAL SQ SCH ×2 (08:04→21:54)
[2020-04-18 09:03] LABS: Basophils % (A) 0 %; Eosinophils # (A) 0.1 k/uL (0-0.7); Eosinophils % (A) 1 %; HCT 31.2 % (34.0-46.0); HGB 9.5 gm/dL (11.4-16.0); Hypochromasia Marked; Lymphocytes % (A) 24 %; MCH 26.6 pg (25.0-35.0); MCHC 30.3 g/dL (31.0-37.0); MCV 87.8 fL (80.0-100.0); Mean Platelet Volume 6.5; Monocytes # (A) 0.5 k/uL (0-1.0); Monocytes % (A) 6 %; Neutrophils # (A) 5.7 k/uL (1.3-7.7); Neutrophils % (A) 68 %; Platelet Count 486 k/uL (150-450); RBC 3.56 m/uL (3.80-5.40); RDW 15.3 % (11.5-15.5); WBC 8.4 k/uL (3.8-10.6)
[2020-04-18 09:19] LABS: Potassium 3.8 mmol/L (3.5-5.1)
[2020-04-18 09:41] LABS: African American GFR (CKD) >90 (>60 ml/min/1.73 sqM); Anion Gap 9 mmol/L; Blood Urea Nitrogen 3 mg/dL (7-17); Calcium 8.1 mg/dL (8.4-10.2); Carbon Dioxide 25 mmol/L (22-30); Chloride 100 mmol/L (98-107); Glucose 91 mg/dL (74-99); Non-African American GFR(CKD) >90 (>60 ml/min/1.73 sqM); Sodium 134 mmol/L (137-145)
--- NOTE | 2020-04-18 12:25 | P.PN ---
Subjective Progress Note Date: 04/18/20 CHIEF COMPLAINT: Abdominal wall abscess HISTORY OF PRESENT ILLNESS: The patient is a 45-year-old female with history of complicated Crohn's disease with abdominal wall abscess previously drained 1 week ago. She is re-admitted for recurring symptoms with sepsis. Her abdominal pain is stable, not worse. Her WBC is now normal. She is tolerating liquids. She reports intolerance to dairy and solid foods. She also reports intolerance to steroids for her Crohns. Antibiotics have been adjusted per infectious disease. REVIEW OF ORGAN SYSTEMS: No nausea or vomiting. No chest pain. PHYSICAL EXAM: VITALS: Reviewed. T max 100.8 CONSTITUTIONAL: Well developed and in no acute distress. EYES: Conjuctivae without sclera icterus. Pupils are equally round and reactive to light. Extraocular movements grossly intact. HEAD, EARS, NOSE, THROAT: Moist buccal mucosa. Head is atraumatic, normocephalic. Hears conversational speech. No nasal drainage. NECK: Supple. No JV distention. No thyroidomegaly. RESPIRATORY: Non-labored respirations and equal bilateral excursions. No gross wheezes. CARDIOVASCULAR: Regular rate and rhythm. ABDOMEN: Soft. No peritonitis. Left lower quadrant abdominal tenderness without redness, mild fullness. MUSCULOSKELETAL: No clubbing or cyanosis SKIN: Warm and well perfused with good skin turgor. NEUROLOGIC: Cranial nerves II through XII grossly intact. Sensation upper and extremities intact. No focal or lateralizing signs. PSYCH: Appropriate affect. Alert and oriented to person, place and time. Displays appropriate insight. CLINCAL LABS: Reviewed. WBC elevated at 14.9 now 8.4. Platelets improved 628 to 486. ESR up 75. CRP up 213. ASSESSMENT: 1. Complicated Crohn's disease 2. Abdominal wall abscess PLAN: 1. She has risks for colocutaneous fistula with Crohn's disease. 2. Continue IV antibiotics 3. She has complicated Crohns for which she is unresponsive to immunomodulators per patient history including intolerance to steroids. Will need further management direction from gastroenterology team. Objective - Vital Signs Vital signs: Vital Signs Temp 98.3 F 04/18/20 07:42 Pulse 78 04/18/20 07:42 Resp 16 04/18/20 07:42 BP 95/59 04/18/20 07:42 Pulse Ox 95 04/18/20 07:42 Intake & Output 04/17/20 04/18/20 04/18/20 18:59 06:59 18:59 Intake Total 320 Balance 320 Intake: Intake, IV Titration 200 Amount Piperacillin-Tazobactam 3 100 .375 gm In Sodium Chloride 0.9% 100 ml @ 25 mls/hr IVPB Q8HR [facility] Rx# :[id number] metroNIDAZOLE-NS PMX 500 100 mg In Saline 1 100ml.bag @ 100 mls/hr IVPB Q8HR [facility] Rx#:[id number] Oral 120 Other: Voiding Method Toilet # Voids 2 2 - Labs CBC & Chem 7: 04/18/20 08:29 04/18/20 08:29 Labs: Abnormal Lab Results - Last 24 Hours (Table) 04/17/20 04/17/20 04/18/20 Range/Units 14:53 14:54 08:29 RBC 3.56 L (3.80-5.40) m/uL Hgb 9.5 L (11.4-16.0) gm/dL Hct 31.2 L (34.0-46.0) % MCHC 30.3 L (31.0-37.0) g/dL Plt Count 486 H (150-450) k/uL ESR 75 H (0-20) mm/hr Sodium (137-145) mmol/L BUN (7-17) mg/dL Creatinine (0.52-1.04) mg/dL Calcium (8.4-10.2) mg/dL C-Reactive Protein 213.1 H (<10.0) mg/L 04/18/20 Range/Units 08:29 RBC (3.80-5.40) m/uL Hgb (11.4-16.0) gm/dL Hct (34.0-46.0) % MCHC (31.0-37.0) g/dL Plt Count (150-450) k/uL ESR (0-20) mm/hr Sodium 134 L (137-145) mmol/L BUN 3 L (7-17) mg/dL Creatinine 0.49 L (0.52-1.04) mg/dL Calcium 8.1 L (8.4-10.2) mg/dL C-Reactive Protein (<10.0) mg/L Microbiology - Last 24 Hours (Table) 04/16/20 21:10 Blood Culture - Preliminary Blood No Growth after 24 hours Assessment and Plan (1) Abscess of abdominal wall Current Visit: Yes Status: Acute Code(s): L02.211 - CUTANEOUS ABSCESS OF ABDOMINAL WALL SNOMED Code(s): 25120754 (2) Fever Current Visit: Yes Status: Acute Code(s): R50.9 - FEVER, UNSPECIFIED SNOMED Code(s): 859999114 (3) Crohn disease Current Visit: No Status: Acute Code(s): K50.90 - CROHN'S DISEASE, UNSPECIFIED, WITHOUT COMPLICATIONS SNOMED Code(s): 59185424 (4) LLQ abdominal pain Current Visit: No Status: Acute Code(s): R10.32 - LEFT LOWER QUADRANT PAIN SNOMED Code(s): 228911466 (5) Left lower quadrant abdominal abscess Current Visit: No Status: Acute Code(s): K65.1 - PERITONEAL ABSCESS SNOMED Code(s): 43495581 (6) Sepsis Current Visit: Yes Status: Acute Code(s): A41.9 - SEPSIS, UNSPECIFIED ORGANISM SNOMED Code(s): 19776139
[2020-04-18] MEDS: ANIDULAFUNGIN 100 MG in SODIUM CHLORIDE 0.9% 100 ML IVPB SCH (12:51)
[2020-04-18] MEDS: IOPAMIDOL CONTRAST (ORAL USE) VIAL PO PRN ×2 (13:27→14:33)
[2020-04-18] MEDS: HYDROcodone/APAP 5-325MG 1 EACH TAB PO PRN (15:37)
--- NOTE | 2020-04-18 15:57 | CT ---
EXAMINATION TYPE: CT abdomen pelvis wo con DATE OF EXAM: 04/18/2020 COMPARISON: 04/16/2020 HISTORY: Left sided abdominal abscess and pain. CT DLP: 506 mGycm Automated exposure control for dose reduction was used. Images were obtained from the diaphragm to the floor the pelvis with oral contrast only. There is some mild pleural thickening and atelectasis at the posterior lung bases. Heart size is norm al. There is no pericardial effusion. Liver shows no focal defect. Spleen is intact. There is no panc reatic mass. Stomach is intact. Gallbladder appears normal. Bile ducts are not dilated. There is no adrenal mass. Kidneys have normal size and contour. There is no hydronephrosis. Ureters a re not dilated. Bladder distends smoothly. There is no retroperitoneal adenopathy. There is a 6 x 4.5 cm complex mass involving the left lower anterior abdominal wall consistent with a n abscess. There is fluid level. There is some soft tissue air extending in the muscle of the left lo wer lateral abdominal wall. There is fat stranding around the abscess. Appendix appears normal. There is small amount of free fluid in the pelvis. There is no evidence of p neumoperitoneum. There is no inguinal hernia. I see no sign of a bowel obstruction. The lumbar spine is intact. Bony pelvis is intact. IMPRESSION: Abdominal wall abscess appears extraperitoneal and increased in size slightly compared to recent exam . There is small amount of free fluid in the pelvis probably improved compared to last exam. Intramus cular air on the lateral abdominal wall unchanged. Pleural fluid and thickening at the lung bases improved slightly compared to last exam.
--- NOTE | 2020-04-18 17:55 | P.CONS ---
History of Present Illness - Reason for Consult Consult date: 04/18/20 Crohn's colitis Requesting physician: Elizabeth Samson - Chief Complaint Fever - History of Present Illness 45-year-old female with a known history of severe Crohn's colitis recently started on biologic therapy with Remicade who was recently hospitalized and discharged for abdominal pain secondary to an intra-abdominal abscess. Patient was treated with broad-spectrum antibiotic therapy. Computed tomography scan was unable to put a drain into the abscess but did collect a small amount of fluid. She reports that after discharge from the hospital she developed fevers with associated rigors and chills and came back for further evaluation as instructed. She continues to have persistent pain in the left lower quadrant described as sharp without radiation and worse with movement and palpation, particularly at the previous site of the CT-guided drainage. Cultures from CT- guided drainage on 04/12/2020 positive for multiple pathogens including E. coli, Klebsiella, strep viridans in [place] as well as anaerobes. On current admission surgical service and infectious disease consulted and patient is seen lying in bed with no acute complaints. Review of Systems REVIEW OF SYSTEMS: CONSTITUTIONAL: Denies any weight change but did report fevers, chills and right years prior to presentation. CARDIOVASCULAR: Denies any chest pain, palpitations high or low blood pressures RESPIRATORY: Denies any shortness of breath, hemoptysis or cough. GENITOURINARY: No dysuria or hematuria. MUSCULOSKELETAL: No weakness reported. SKIN: Denies any new rashes or lesions, jaundice or pallor. PSYCHIATRIC: Denies any depression or anxiety. NEUROLOGY: Denies headache, denies any new focal deficits. EARS/NOSE/THROAT: No recent hearing change, congestion, nasal discharge or sore throat. EYES: No pain in eyes, discharge or change in vision. GASTROINTESTINAL: As per HPI. Past Medical History Additional Past Medical History / Comment(s): crohn's History of Any Multi-Drug Resistant Organisms: C-DIFF Year Discovered:: 2019 MDRO Source:: bowel Past Surgical History: No Surgical Hx Reported Additional Past Surgical History / Comment(s): colonoscopy Past Anesthesia/Blood Transfusion Reactions: No Reported Reaction Past Psychological History: No Psychological Hx Reported Smoking Status: Current some day smoker Past Alcohol Use History: None Reported Past Drug Use History: None Reported - Past Family History Mother History Unknown: Yes Medications and Allergies Home Medications Medication Instructions Recorded Confirmed Type Ferrous Sulfate [Iron (65 MG 325 mg PO DAILY 12/15/19 04/16/20 History Elemental)] Acetaminophen Tab [Tylenol] 650 - 975 mg PO Q4H PRN 04/08/20 04/16/20 History inFLIXimab [Remicade] 100 mg IV Q14D 04/08/20 04/16/20 History Amoxic-Pot Clav 875-125Mg 1 tab PO Q12HR 5 Days #10 tab 04/14/20 04/16/20 Rx [Augmentin 875-125] Hyoscyamine Sulfate [Levsin] 0.125 mg PO TID@0900,1600,2300 04/16/20 04/16/20 History Allergies Allergy/AdvReac Type Severity Reaction Status Date / Time methylprednisolone AdvReac Unknown Verified 04/16/20 21:55 [From [facility]] Physical Exam Vitals: Vital Signs Temp Pulse Resp BP Pulse Ox 04/18/20 07:42 98.3 F 78 16 95/59 95 04/18/20 02:25 99.3 F 88 111/72 95 04/17/20 20:00 98.2 F 79 20 96/61 99 04/17/20 16:57 98.8 F 04/17/20 15:00 100.8 F H 84 20 111/73 100 Intake and Output 04/17/20 04/18/20 04/18/20 22:59 06:59 14:59 Intake Total 120 200 Balance 120 200 Intake: Intake, IV Titration 200 Amount Piperacillin-Tazobactam 3 100 .375 gm In Sodium Chloride 0.9% 100 ml @ 25 mls/hr IVPB Q8HR [facility] Rx# :[id number] metroNIDAZOLE-NS PMX 500 100 mg In Saline 1 100ml.bag @ 100 mls/hr IVPB Q8HR [facility] Rx#:[id number] Oral 120 Other: Voiding Method Toilet Toilet # Voids 2 2 On physical examination, patient appears comfortable in no apparent distress. HEAD: Normocephalic, atraumatic. EYES: No scleral icterus. No conjunctival injection. MOUTH: No lesions, tongue midline. NECK: Trachea midline, no gross abnormalities. CHEST: Clear to auscultation with no wheezing or rhonchi appreciated. HEART: Regular rate and rhythm. ABDOMEN: Soft, thin and tender to palpation particularly in the left lower quadrant of the abdomen. Bowel sounds are positive. No organomegaly. No guarding or rigidity. EXTREMITIES: No pedal edema. SKIN: No rashes, no jaundice. NEUROLOGIC: Alert and oriented x3. No focal deficits. Results CBC & Chem 7: 04/18/20 08:29 04/18/20 08:29 Labs: Abnormal Lab Results - Last 24 Hours (Table) 04/17/20 04/17/20 04/18/20 Range/Units 14:53 14:54 08:29 RBC 3.56 L (3.80-5.40) m/uL Hgb 9.5 L (11.4-16.0) gm/dL Hct 31.2 L (34.0-46.0) % MCHC 30.3 L (31.0-37.0) g/dL Plt Count 486 H (150-450) k/uL ESR 75 H (0-20) mm/hr Sodium (137-145) mmol/L BUN (7-17) mg/dL Creatinine (0.52-1.04) mg/dL Calcium (8.4-10.2) mg/dL C-Reactive Protein 213.1 H (<10.0) mg/L 04/18/20 Range/Units 08:29 RBC (3.80-5.40) m/uL Hgb (11.4-16.0) gm/dL Hct (34.0-46.0) % MCHC (31.0-37.0) g/dL Plt Count (150-450) k/uL ESR (0-20) mm/hr Sodium 134 L (137-145) mmol/L BUN 3 L (7-17) mg/dL Creatinine 0.49 L (0.52-1.04) mg/dL Calcium 8.1 L (8.4-10.2) mg/dL C-Reactive Protein (<10.0) mg/L Microbiology - Last 24 Hours (Table) 04/16/20 21:10 Blood Culture - Preliminary Blood No Growth after [address] scan - abdomen: report reviewed (Computed tomography scan of the abdomen showing abscess of the left anterior abdominal wall slightly increased in size from prior CT.) Assessment and Plan (1) Abscess of abdominal wall Narrative/Plan: 45-year-old female with a history of severe Crohn's colitis started on Remicade infusions recently been seen in the hospital for abdominal pain and findings of a left lower abdominal wall abscess which was treated with aspiration of 10 mL of fluid from the abscess with either service unable to place drain has emesis was not large enough at that time. Patient was on presentation antibiotic therapies and discharged just a few days ago to complete antibiotic therapy. However the patient developed fevers with associated chills and riders and presented back to the hospital as instructed for further treatment. Computed tomography scan on current admission showed a left lower abdominal wall abscess slightly increased in size from prior computed tomography scan evaluation. Currently she has been placed on broad-spectrum antibiotic therapy and antifungal therapy by the infectious disease service based on culture from prior drainage. Laboratory evaluation that showed markedly elevated CRP at 213 and ESR at 75. Current Visit: Yes Status: Acute Code(s): L02.211 - CUTANEOUS ABSCESS OF ABDOMINAL WALL SNOMED Code(s): 73987924 (2) Crohn disease Current Visit: No Status: Acute Code(s): K50.90 - CROHN'S DISEASE, UNSPECIFIED, WITHOUT COMPLICATIONS SNOMED Code(s): 39256050 (3) LLQ abdominal pain Current Visit: No Status: Acute Code(s): R10.32 - LEFT LOWER QUADRANT PAIN SNOMED Code(s): 919066813 Plan: Supportive care Clear liquid diet initiated by surgical service Appreciate recommendations by surgery and infectious disease Continue Zosyn, Flagyl and Eraxis per ID recommendations Consideration is for further drainage of the abscess either CT guided or surgically We'll hold steroid therapy for now due to underlying infection, with consideration for steroids or other treatment options pending clinical course Thank you for allowing us to participate in the care of the patient
--- NOTE | 2020-04-19 01:45 | PN ---
PROGRESS NOTE DATE OF SERVICE: 04/18/2020 This 45-year-old woman who was admitted with left-sided abdominal wall abscess is being closely monitored at this time. The patient also had significant tenderness. Patient is on broad-spectrum IV antibiotics. An abdomen pelvis CAT scan with p.o. contrast was also done today which showed abdominal abscess appears to be extraperitoneal and increased slightly. The patient previously had aspiration. There is no evidence of any fistula formation at this time. PAST MEDICAL HISTORY: Reviewed. REVIEW OF SYSTEMS: CARDIOVASCULAR SYSTEM: No angina. RESPIRATORY SYSTEM: As mentioned earlier. GI: As mentioned earlier. : No dysuria. NERVOUS SYSTEM: No numbness or weakness. CURRENT MEDICATIONS: Current medications are reviewed and include: Tylenol, Ferris, heparin, Dilaudid, Levsin, Flagyl, Narcan, Protonix, Zosyn. Doses are reviewed. PHYSICAL EXAMINATION: The patient is alert and oriented x3. Pulse 77, blood pressure 108/71, respirations 16, temperature 97.5, pulse ox 98% on room air. HEENT: Conjunctivae normal. NECK: No jugular venous distention. CARDIOVASCULAR: S1, S2 muffled. RESPIRATORY: Breath sounds diminished at the bases. A few scattered rhonchi and crackles. ABDOMEN: Soft, obese. Left-sided abdominal wall abscess. NERVOUS SYSTEM: No focal deficits. LABS: WBC 8.4, hemoglobin 9.5. Sodium 134, potassium 3.8. C-reactive protein is 213. ASSESSMENT: 1. Left-sided abdominal wall abscess with failure of outpatient treatment with severe pain. 2. Crohn's disease with immunotherapy with some colitis. 3. The previous culture showed Escherichia coli, Klebsiella, Viridans streptococcus and [place]. 4. A fistula unlikely. 5. Increased WBC. 6. Anemia. 7. Increased platelets. 8. Hyponatremia. 9. Mild hypoalbuminemia with mild protein calorie malnutrition. 10.History of Clostridium difficile colitis. 11.History of colonoscopy. 12.FULL CODE. RECOMMENDATIONS AND DISCUSSION: Recommend to continue current medications, continue symptomatic treatment. Otherwise, continue with antibiotics, DVT prophylaxis. Repeat labs. Continue with antifungals and antibiotics. The previous culture showed polymicrobial jose de jesus including [place]. MMODL / IJN: [id number] /
[2020-04-19] MEDS: MORPHINE SULFATE 4 MG/ML SYRINGE IV PRN ×6 (02:24→23:48)
[2020-04-19] MEDS: SODIUM CHLORIDE 0.9% 1,000 ML IV SCH ×2 (06:23→16:50)
[2020-04-19] MEDS: NICOTINE 14MG/24HR PATCH TRANSDERM SCH (06:45)
[2020-04-19] MEDS: HYOSCYAMINE SULFATE 0.125 MG TAB PO SCH ×3 (07:07→23:44)
[2020-04-19] MEDS: HEPARIN SODIUM,PORCINE 5,000 UNIT/ML 1 ML VIAL SQ SCH ×2 (07:07→20:35)
[2020-04-19] MEDS: metroNIDAZOLE-NS PMX 500 MG in SALINE 1 100ML.BAG IVPB SCH ×3 (07:07→23:44)
[2020-04-19] MEDS: PANTOPRAZOLE 40 MG TABLET PO SCH ×2 (07:07→16:15)
--- NOTE | 2020-04-19 07:16 | PN ---
PROGRESS NOTE DATE OF SERVICE: 04/18/2020. REASON FOR FOLLOWUP: Abdominal wall abscess. INTERVAL HISTORY: The patient is afebrile today. The patient is breathing comfortably. Still complaining of more pain to the left lower abdominal area. No chest pain, shortness of breath or cough. No nausea, no vomiting. No diarrhea. PHYSICAL EXAMINATION: Blood pressure 108/71 with a pulse of 77, temperature 97.5. She is 98% on room air. General description is a middle-aged female up in the bed in no distress. RESPIRATORY SYSTEM: Unlabored breathing, clear to auscultation anteriorly. HEART: S1, S2. Regular rate and rhythm. ABDOMEN: Soft, tender in the left lower quadrant area. Mild guarding. No rigidity. EXTREMITIES: No edema of feet. LABS: Hemoglobin is 9.5, white count 8.4, BUN of 3, creatinine 0.49. DIAGNOSTIC IMPRESSION AND PLAN: Patient with abdominal abscess with a recent CT-guided drainage, failing outpatient oral Augmentin therapy with the CT this afternoon did show slight worsening of the abscess. She will benefit from open surgical drainage of this abscess. Continue with Zosyn and Eraxis and she will not need outpatient antibiotic on discharge. Continue with supportive care. MMODL / IJN: [id number] /
[2020-04-19] MEDS: PIPERACILLIN-TAZOBACTAM 3.375 GM in SODIUM CHLORIDE 0.9% 100 ML IVPB SCH ×3 (07:36→23:44)
[2020-04-19] MEDS: ONDANSETRON 4 MG/2 ML VIAL IVP PRN (07:40)
[2020-04-19 08:56] LABS: Basophils % (A) 0 %; Eosinophils % (A) 0 %; HCT 33.8 % (34.0-46.0); HGB 10.2 gm/dL (11.4-16.0); Hypochromasia Marked; Lymphocytes # (A) 1.9 k/uL (1.0-4.8); Lymphocytes % (A) 16 %; MCH 26.2 pg (25.0-35.0); MCV 87.2 fL (80.0-100.0); Mean Platelet Volume 6.4; Monocytes # (A) 0.7 k/uL (0-1.0); Monocytes % (A) 6 %; Neutrophils # (A) 9.1 k/uL (1.3-7.7); Neutrophils % (A) 77 %; Platelet Count 526 k/uL (150-450); RBC 3.88 m/uL (3.80-5.40); RDW 15.1 % (11.5-15.5); WBC 11.8 k/uL (3.8-10.6)
--- NOTE | 2020-04-19 11:27 | P.PN ---
Progress Note - Text Progress Note Date: 04/19/20 The patient's O's complaints of left-sided abdominal wall pain. On exam vital signs are stable. Abdomen soft. There is tenderness left lower quadrant. Recurrent abdominal abscesses. Patient will continue receive IV in box. We will plan on reimaging her prior to discharge.
[2020-04-19 11:28] LABS: African American GFR (CKD) >90 (>60 ml/min/1.73 sqM); Anion Gap 11 mmol/L; Blood Urea Nitrogen <2 mg/dL (7-17); Calcium 8.4 mg/dL (8.4-10.2); Carbon Dioxide 24 mmol/L (22-30); Chloride 98 mmol/L (98-107); Glucose 91 mg/dL (74-99); Non-African American GFR(CKD) >90 (>60 ml/min/1.73 sqM); Potassium 3.8 mmol/L (3.5-5.1); Sodium 133 mmol/L (137-145)
[2020-04-19] MEDS: ANIDULAFUNGIN 100 MG in SODIUM CHLORIDE 0.9% 100 ML IVPB SCH (11:29)
--- NOTE | 2020-04-19 16:52 | PN ---
PROGRESS NOTE DATE OF SERVICE: 04/19/2020 Patient is a 45-year-old pleasant white female with history of severe Crohn's colitis with transverse colon stricture diagnosed in December of 2018, who was just started on Remicade infusions 3 weeks ago. Presently, she received only 1 dose of induction dose of Remicade infusion. She was admitted to the hospital 10 days ago with abdominal abscess, was treated with antibiotics and was discharged home. She came back to the hospital 3 days later with abdominal pain, fever, leukocytosis, presently on broad- spectrum antibiotics and Dr. Kent following the patient closely. Presently remains on Flagyl and Zosyn. She still continues to complain of left-sided abdominal pain. No further episodes of fever, chills, or night sweats. PHYSICAL EXAMINATION: She appears comfortable, in no apparent distress. Vital signs are stable, blood pressure 101/66, pulse rate 94, temperature 98.6. HEENT: Examination unremarkable, conjunctivae are pink, sclerae nonicteric, oral cavity no lesions. NECK: No JVD or lymph node enlargement. CHEST: Clear to auscultation. HEART: Regular rate and rhythm. ABDOMEN: Severe tenderness in the left upper quadrant and left lower quadrant area. Rest of the abdomen is benign, bowel sounds are positive. EXTREMITIES: No pedal edema. SKIN: No rashes. NEURO: She is alert and oriented x3. No focal deficits. CT of the abdomen showed abdominal wall abscess, appears extraperitoneal and increased slightly compared to the previous examination. This measures 6 x 4.5 cm, which is extending onto the muscle of the left lower quadrant abdominal wall. IMPRESSION: History of severe Crohn's colitis with intraabdominal abscess with recent hospitalization for almost 7 days, treated with antibiotics and drainage and was discharged home. Now she is readmitted to the hospital with worsening symptoms. Repeat CAT scan shows 6 x 4 cm complex mass involving the left lower anterior abdominal wall. She was started on broad-spectrum antibiotics. Dr. Kent has been consulted and Dr. Welch also following the patient closely. She feels slightly better today. RECOMMENDATION: 1. Continue with broad-spectrum antibiotics. 2. Will discuss with Dr. Welch regarding need for surgical intervention because of severe Crohn's colitis, complicated with an intraabdominal abscess, extending onto the anterior abdominal wall. In the meantime, continue with symptomatic and supportive care and follow with you closely. Thank you for this consultation. MMODL / IJN: [id number] /
--- NOTE | 2020-04-19 18:54 | PN ---
PROGRESS NOTE DATE OF SERVICE: 04/19/2020 This 45-year-old woman who was admitted with left-sided abdominal wall abscess is being closely monitored. No chest pain. No palpitations. No fever. PHYSICAL EXAMINATION: Alert and oriented x3. Pulse is 86, blood pressure 106/60, respiration 19, temperature 98.3, pulse ox 99% on room air. HEENT: Conjunctivae normal. NECK: No jugular venous distention. CARDIOVASCULAR SYSTEM: S1, S2 muffled. RESPIRATORY SYSTEM: Breath sounds diminished at the bases. No rhonchi. No crackles. ABDOMEN: Soft, non-tender. LEGS: No edema. No swelling. NERVOUS SYSTEM: No focal deficit. LABS: WBC 11.8, hemoglobin 10.6, sodium 133. is 213. ASSESSMENT: 1. Left-sided abdominal wall abscess with failure of outpatient treatment with severe pain. 2. Crohn's disease with immunotherapy with some colitis. 3. Previous culture showed Escherichia coli, Klebsiella, viridans streptococci and [place]. 4. Fistula unlikely. 5. Increased white count. 6. Anemia. 7. Increased platelets. 8. Hyponatremia. 9. Mild hypoalbuminemia with mild protein-calorie malnutrition. 10.History of Clostridium difficile colitis. 11.History of colonoscopy. 12.FULL CODE. RECOMMENDATIONS AND DISCUSSION: I recommend to continue current medications, continue with the monitoring, symptomatic treatment. Continue with antibiotics, pain management. The patient has some significant swelling of the left anterior abdominal wall. Closely follow with Surgery. Guarded prognosis. Further recommendations to follow. MMODL / IJN: [id number] / MTDD
--- NOTE | 2020-04-19 20:25 | PN ---
PROGRESS NOTE DATE OF SERVICE: 04/19/2020 REASON FOR FOLLOWUP: Intraabdominal abscess. INTERVAL HISTORY: The patient is currently afebrile. The patient is breathing comfortably. Has been complaining of more pain to the abdominal area. No nausea, no vomiting. No chest pain, shortness of breath or cough and no diarrhea. PHYSICAL EXAMINATION: Blood pressure 106/66, pulse of 86, temperature 98.3. She is 99% on room air. General description is a middle-aged female lying in bed in no distress. RESPIRATORY SYSTEM: Unlabored breathing. Clear to auscultation anteriorly. HEART: S1, S2. Regular rate and rhythm. ABDOMEN: Soft. Mildly tender. LABS: Hemoglobin is 10.1, white count of 11.8, BUN of 2, creatinine 0.49. DIAGNOSTIC IMPRESSION AND PLAN: Patient with intraabdominal abscess failing outpatient oral antibiotic therapy. Patient at this time to continue with Zosyn and Eraxis. She may benefit from surgical drainage. Surgery is on the case. Continue with supportive care. MMODL / IJN: [id number] /
[2020-04-20] MEDS: MORPHINE SULFATE 4 MG/ML SYRINGE IV PRN ×5 (04:52→22:03)
[2020-04-20 07:54] LABS: Basophils % (A) 0 %; Eosinophils % (A) 0 %; HCT 29.6 % (34.0-46.0); Hypochromasia Marked; Lymphocytes # (A) 1.7 k/uL (1.0-4.8); Lymphocytes % (A) 17 %; MCH 26.4 pg (25.0-35.0); MCHC 30.4 g/dL (31.0-37.0); MCV 86.8 fL (80.0-100.0); Mean Platelet Volume 6.3; Monocytes # (A) 0.6 k/uL (0-1.0); Monocytes % (A) 6 %; Neutrophils # (A) 7.7 k/uL (1.3-7.7); Neutrophils % (A) 75 %; Platelet Count 430 k/uL (150-450); RBC 3.41 m/uL (3.80-5.40); RDW 15.2 % (11.5-15.5); WBC 10.2 k/uL (3.8-10.6)
[2020-04-20 08:14] LABS: African American GFR (CKD) >90 (>60 ml/min/1.73 sqM); Anion Gap 8 mmol/L; Blood Urea Nitrogen <2 mg/dL (7-17); Calcium 7.7 mg/dL (8.4-10.2); Carbon Dioxide 26 mmol/L (22-30); Chloride 98 mmol/L (98-107); Glucose 79 mg/dL (74-99); Non-African American GFR(CKD) >90 (>60 ml/min/1.73 sqM); Potassium 3.3 mmol/L (3.5-5.1); Sodium 132 mmol/L (137-145)
[2020-04-20] MEDS: PANTOPRAZOLE 40 MG TABLET PO SCH ×2 (08:57→17:25)
[2020-04-20] MEDS: SODIUM CHLORIDE 0.9% 1,000 ML IV SCH ×2 (08:58→22:03)
[2020-04-20] MEDS: metroNIDAZOLE-NS PMX 500 MG in SALINE 1 100ML.BAG IVPB SCH ×2 (08:59→15:13)
[2020-04-20] MEDS: HEPARIN SODIUM,PORCINE 5,000 UNIT/ML 1 ML VIAL SQ SCH ×2 (08:59→22:02)
[2020-04-20] MEDS: HYOSCYAMINE SULFATE 0.125 MG TAB PO SCH ×3 (09:00→22:02)
[2020-04-20] MEDS: NICOTINE 14MG/24HR PATCH TRANSDERM SCH (09:00)
[2020-04-20] MEDS: PIPERACILLIN-TAZOBACTAM 3.375 GM in SODIUM CHLORIDE 0.9% 100 ML IVPB SCH ×2 (10:09→16:15)
[2020-04-20] MEDS: ANIDULAFUNGIN 100 MG in SODIUM CHLORIDE 0.9% 100 ML IVPB SCH (12:01)
--- NOTE | 2020-04-20 12:01 | P.PN ---
Progress Note - Text Progress Note Date: 04/20/20 The patient has complaints of increased left-sided abdominal pain. On exam her vital signs are stable. Abdomen soft. There is some firmness to her left abdominal wall. Left abdominal wall abscess related to Crohn's disease. I discussed with the patient the possibility of a subtotal colectomy for her Crohn's which which has been refractory medical management. The patient this time does not wish to have surgery. We will continue to follow her. We will repeat her CAT scan tomorrow.
[2020-04-20] MEDS ORDERED: Potassium Replacement Protocol 1 EACH MISC MISCELLANE PRN (12:54)
[2020-04-20] MEDS: POTASSIUM CHLORIDE ER 20 MEQ TAB.ER PO SCH ×2 (13:58→15:13)
--- NOTE | 2020-04-20 16:29 | PN ---
PROGRESS NOTE DATE OF SERVICE: 04/20/2020 Patient is a 45-year-old pleasant white female admitted to the hospital with severe left-sided abdominal pain. History of Crohn's disease diagnosed in December of 2018, was just started on Remicade infusions on an outpatient basis 2 weeks ago. She was admitted to the hospital 10 days ago with intraabdominal abscess and was discharged home on antibiotics. She was readmitted 3 days following discharge from the hospital with same symptoms and repeat CAT scan shows enlarging abscess extending into the anterior abdominal wall. Presently, on broad-spectrum antibiotics and Dr. Kent following the patient closely. The patient continues to have left-sided abdominal pain. No nausea, no vomiting. On a regular diet, tolerating well. She was seen by Dr. Welch for possibility of subtotal colectomy and the plan is to repeat CAT scan tomorrow and further decisions will be made. PHYSICAL EXAMINATION: She appears comfortable, in no apparent distress. Vital signs are stable. Blood pressure is 112/86, pulse rate 81, temperature 98.6. HEENT: Examination unremarkable, conjunctivae are pink, sclerae nonicteric, oral cavity no lesions. NECK: No JVD or lymph node enlargement. CHEST: Clear to auscultation. HEART: Regular rate and rhythm. ABDOMEN: Soft, bowel sounds are positive. There was severe tenderness along the left upper quadrant and left lower quadrant area. EXTREMITIES: No pedal edema. NEUROLOGIC: Alert and oriented x3. No focal deficits. LABS: WBC 10.2, hemoglobin 9, platelets 430, basic metabolic panel is within normal limits. IMPRESSION: 1. History of Crohn's colitis complicated with intraabdominal abscess extending onto the anterior abdominal wall, noted on CAT scan 2 days ago, on broad-spectrum antibiotics with Zosyn and Eraxis. Patient doing slightly better. Leukocytosis has resolved. 2. Dr. Welch following the patient closely. RECOMMENDATIONS: 1. Continue with broad-spectrum antibiotics. 2. Agree with repeat CAT scan tomorrow to see for any improvement in the abscess size. 3. Once again, I had a lengthy discussion with the patient regarding the need for surgical intervention and I also discussed the case with Dr. Welch. At this time, further recommendations will be made based on the CAT scan results tomorrow. Will follow with you closely. Thank you for this consultation. MMODL / IJN: [id number] /
--- NOTE | 2020-04-20 17:47 | P.PN ---
Subjective 45-year-old female patient is admitted for intra-abdominal abscessfailed outpatient antibiotic therapy is admitted for IV antibiotics and further grisel lation original surgery patient may require x-ray laparotomy and drainage of abscess.patient is presently on metronidazole vancomycin and antifungals infectious disease general surgery and gastroenterology of following the patient patient does have history of Crohn's diseasethe patient still has abdominal pain but bit better Constitutional: Denied any fatigue denied any fever. Cardio vascular: denied any chest pain, palpitations Gastrointestinal as mentioned in HPI Pulmonary: Denied any shortness of breath cough Neurologic denied any new focal deficits All inpatient medications were reviewed and appropriate changes in these medications as dictated in the interval history and assessment and plan. Objective - Vital Signs Vital signs: Vital Signs Temp 98.8 F 04/20/20 15:00 Pulse 71 04/20/20 15:00 Resp 16 04/20/20 15:00 BP 106/66 04/20/20 15:00 Pulse Ox 100 04/20/20 15:00 Intake & Output 04/19/20 04/20/20 04/20/20 18:59 06:59 18:59 Intake Total 1080 1390 540 Balance 1080 1390 540 Intake: Intake, IV Titration 850 Amount Piperacillin-Tazobactam 3 100 .375 gm In Sodium Chloride 0.9% 100 ml @ 25 mls/hr IVPB Q8HR [facility] Rx# :[id number] Sodium Chloride 0.9% 1, 650 000 ml @ 75 mls/hr IV . [id number] [facility] Rx#:[id number] metroNIDAZOLE-NS PMX 500 100 mg In Saline 1 100ml.bag @ 100 mls/hr IVPB Q8HR [facility] Rx#:[id number] Oral 1080 540 540 Other: Voiding Method Toilet Toilet # Voids 2 1 3 # Bowel Movements 1 - Exam PHYSICAL EXAMINATION: GENERAL: The patient is alert and oriented x3, not in any acute distress. Well developed, well nourished. HEENT: Pupils are round and equally reacting to light. EOMI. No scleral icterus. No conjunctival pallor. Normocephalic, atraumatic. No pharyngeal erythema. No thyromegaly. CARDIOVASCULAR: S1 and S2 present. No murmurs, rubs, or gallops. PULMONARY: Chest is clear to auscultation, no wheezing or crackles. ABDOMEN: Soft, recent tenderness in the left upper quadrant and left lower quadrant area nondistended, normoactive bowel sounds. No palpable organomegaly. MUSCULOSKELETAL: No joint swelling or deformity. EXTREMITIES: No cyanosis, clubbing, or pedal edema. NEUROLOGICAL: Gross neurological examination did not reveal any focal deficits. SKIN: No rashes. - Labs CBC & Chem 7: 04/20/20 07:12 04/20/20 07:12 Labs: Abnormal Lab Results - Last 24 Hours (Table) 04/20/20 04/20/20 Range/Units 07:12 07:12 RBC 3.41 L (3.80-5.40) m/uL Hgb 9.0 L (11.4-16.0) gm/dL Hct 29.6 L (34.0-46.0) % MCHC 30.4 L (31.0-37.0) g/dL Sodium 132 L (137-145) mmol/L Potassium 3.3 L (3.5-5.1) mmol/L BUN <2 L (7-17) mg/dL Creatinine 0.40 L (0.52-1.04) mg/dL Calcium 7.7 L (8.4-10.2) mg/dL Microbiology - Last 24 Hours (Table) 04/16/20 21:10 Blood Culture - Preliminary Blood No Growth after 72 hours Assessment and Plan Plan: -intra-abdominal abscess: Patient will continued on above-mentioned antibiotics may need expiratory laparotomy and drainage of abscess previous culture showed E. coli Klebsiella strep viridans streptococci and [place] patient is on antibiotics covering all these bacteria along with anaerobic coverage with metronidazole and antifungal as mentioned above -Crohn's disease patient is on immunotherapy -hyponatremia: Etiology is not clear that in further evaluate as patient hyponatremia appears to be chronic and probably SIADH from pain if it doesn't improve will consider working at a further -nicotine abuse: Counseling was provided
--- NOTE | 2020-04-20 22:05 | PN ---
PROGRESS NOTE DATE OF SERVICE: 04/20/2020 REASON FOR FOLLOWUP: Abdominal abscess. INTERVAL HISTORY: The patient is currently afebrile. The patient is breathing comfortably. Still complaining of pain to the left abdominal area. Some improvement with pain medication. No chest pain, shortness of breath or cough and no diarrhea. PHYSICAL EXAMINATION: Blood pressure 106/67 with a pulse of 80, temperature of 99.4. She is 99% on room air. General description is a middle-aged female lying in bed in no distress. RESPIRATORY SYSTEM: Unlabored breathing. Clear to auscultation anteriorly. HEART: S1, S2. Regular rate and rhythm. ABDOMEN: Soft. Slightly tender. Minimal guarding. No rigidity. LABS: Hemoglobin is 9, white count 10.2, BUN of 2, creatinine 0.40. DIAGNOSTIC IMPRESSION AND PLAN: Patient with abdominal abscess in this patient with underlying Crohn's disease. She has been offered subtotal colectomy; however, the patient is refusing. The patient is currently covered with broad-spectrum Zosyn; to continue. Repeat CT tomorrow. Continue supportive care. MMODL / IJN: [id number] /
[2020-04-21] MEDS: PIPERACILLIN-TAZOBACTAM 3.375 GM in SODIUM CHLORIDE 0.9% 100 ML IVPB SCH ×3 (00:07→17:59)
[2020-04-21] MEDS: metroNIDAZOLE-NS PMX 500 MG in SALINE 1 100ML.BAG IVPB SCH ×3 (00:08→17:59)
[2020-04-21] MEDS: MORPHINE SULFATE 4 MG/ML SYRINGE IV PRN ×3 (04:19→12:38)
[2020-04-21] MEDS: SODIUM CHLORIDE 0.9% 1,000 ML IV SCH (07:40)
[2020-04-21] MEDS: NICOTINE 14MG/24HR PATCH TRANSDERM SCH (07:41)
[2020-04-21] MEDS: HYOSCYAMINE SULFATE 0.125 MG TAB PO SCH ×2 (07:41→17:59)
[2020-04-21] MEDS: HEPARIN SODIUM,PORCINE 5,000 UNIT/ML 1 ML VIAL SQ SCH (07:41)
[2020-04-21] MEDS: PANTOPRAZOLE 40 MG TABLET PO SCH ×2 (07:41→17:59)
[2020-04-21] MEDS: IOPAMIDOL CONTRAST (ORAL USE) VIAL PO PRN ×2 (07:53→09:09)
[2020-04-21 09:43] LABS: HCT 29.7 % (34.0-46.0); Hypochromasia Marked; MCH 26.3 pg (25.0-35.0); MCHC 30.2 g/dL (31.0-37.0); MCV 86.9 fL (80.0-100.0); Mean Platelet Volume 6.4; Platelet Count 443 k/uL (150-450); RBC 3.41 m/uL (3.80-5.40); RDW 15.2 % (11.5-15.5); WBC 9.2 k/uL (3.8-10.6)
[2020-04-21 09:55] LABS: African American GFR (CKD) >90 (>60 ml/min/1.73 sqM); Anion Gap 7 mmol/L; Blood Urea Nitrogen <2 mg/dL (7-17); Calcium 7.9 mg/dL (8.4-10.2); Carbon Dioxide 27 mmol/L (22-30); Chloride 99 mmol/L (98-107); Glucose 92 mg/dL (74-99); Non-African American GFR(CKD) >90 (>60 ml/min/1.73 sqM); Potassium 3.7 mmol/L (3.5-5.1); Sodium 133 mmol/L (137-145)
--- NOTE | 2020-04-21 10:24 | CT ---
EXAMINATION TYPE: CT abdomen pelvis wo con DATE OF EXAM: 04/21/2020 COMPARISON: 04/18/2020 INDICATION: Abdominal abscess DLP: 502.1 mGycm, Automated exposure control for dose reduction was used. CONTRAST: 0 mL of Isovue 300. Study performed with Oral Contrast TECHNIQUE: Axial images were obtained from above the diaphragm to the pubic rami in the axial plane a t 5 mm thick sections. Reconstructed images are reviewed on the computer in the coronal plane. FINDINGS: There is a left abdomen wall abscess with air-fluid levels. This is within the rectus abdominis and o blique musculature region. There is some extension into the peritoneal region. This is measuring 4.6 cm in thickness on the current examination which is stable from the comparison. This is just anterior to the descending colon. Small amount of air is within the fascial layer between the oblique muscula ture the rectus abdominis muscle on the left. Example image 201 image 39. Volume of air appears dimin ished over the interval. Limited CT sections are obtained the lung bases. The lung bases are clear. CT ABDOMEN: Liver: Normal Spleen: Normal Pancreas: Normal Adrenal glands: The adrenal glands are normal. Gallbladder: Normal Kidneys: No masses are evident. No hydronephrosis is present. No cysts are present. No renal stone s are evident. Aorta: Normal Inferior vena cava: Normal. CT PELVIS: Moderate free fluid is within the pelvis. Loops of bowel within the abdomen and pelvis are normal. There are loops of bowel which are incom pletely distended or lack oral contrast limiting their evaluation. Appendix: Normal as visualized. Urinary bladder: Normal. Genitourinary structures: Uterus is unremarkable. Adnexal regions are clear. Osseous structures: No suspicious lytic or sclerotic lesions. IMPRESSIONS: 1. Abdominal wall abscess appears stable in size. Volume of air within the intramuscular region appe ars diminished over the interval. 2. Moderate free fluid within the pelvis, stable from prior exam.
[2020-04-21] MEDS: ANIDULAFUNGIN 100 MG in SODIUM CHLORIDE 0.9% 100 ML IVPB SCH (12:39)
--- NOTE | 2020-04-21 13:06 | CDI ---
Documentation Clarification Form Date: 04/21/2020 12:59:42 PM From: Isabel Fernandez RN, CCDS Admit Date: 04/16/2020 11:01:00 PM Patient Name: Isaura Magallon Visit Number: [id number] ATTENTION: The Clinical Documentation Specialists (CDI) and [facility] Coding Staff appreciate your assistance in clarifying documentation. Please respond to the clarification below the line at the bottom and electronically sign. The CDI & [facility] Coding staff will review the response and follow-up if needed. Please note: Queries are made part of the Legal Health Record. If you have any questions, please contact the author of this message via ITS. Dr. Chowdhury Anemia is documented in the H&P and progress Notes and requires further specificity. History/Risk Factors: Chron's, Cdiff Clinical indicators: 04/16-04/21 Hemoglobin: 10.2/9.5/10.2/06/23 04/16-04/21 Hematocrit: 33.8/31.2/33.8/29.6/29.7 Treatment: 5000U SQ Heparin Q 12 hrs 04/16 1L 0.9% NS IVF Bolus followed by 75 cc/hr In order to capture the severity of condition, please clarify the type of anemia and etiology if known. Acute blood loss anemia Acute on chronic blood loss anemia Chronic blood loss anemia Iron deficiency anemia Nutritional anemia Anemia of chronic disease Unable to determine Other, please specify (Last Form Revision: December 2019) Anemia of chronic disease MTDD
--- NOTE | 2020-04-21 14:34 | P.PN ---
Subjective 45-year-old female patient is admitted for intra-abdominal abscessfailed outpatient antibiotic therapy is admitted for IV antibiotics and further grisel lation original surgery patient may require x-ray laparotomy and drainage of abscess.patient is presently on metronidazole vancomycin and antifungals infectious disease general surgery and gastroenterology of following the patient patient does have history of Crohn's diseasethe patient still has abdominal pain but bit better. 04/21/2020 Patient pain is better controlled. Plan is subtotal colectomy on Sunday. Constitutional: Denied any fatigue denied any fever. Cardio vascular: denied any chest pain, palpitations Gastrointestinal as mentioned in HPI Pulmonary: Denied any shortness of breath cough Neurologic denied any new focal deficits All inpatient medications were reviewed and appropriate changes in these medications as dictated in the interval history and assessment and plan. Objective - Vital Signs Vital signs: Vital Signs Temp 98 F 04/21/20 07:00 Pulse 81 04/21/20 07:00 Resp 18 04/21/20 07:00 BP 100/61 04/21/20 07:00 Pulse Ox 95 04/21/20 07:00 Intake & Output 04/20/20 04/21/20 04/21/20 18:59 06:59 18:59 Intake Total 540 1055 Balance 540 1055 Intake: Intake, IV Titration 875 Amount Piperacillin-Tazobactam 3 100 .375 gm In Sodium Chloride 0.9% 100 ml @ 25 mls/hr IVPB Q8HR [facility] Rx# :[id number] Sodium Chloride 0.9% 1, 675 000 ml @ 75 mls/hr IV . [id number] [facility] Rx#:[id number] metroNIDAZOLE-NS PMX 500 100 mg In Saline 1 100ml.bag @ 100 mls/hr IVPB Q8HR [facility] Rx#:[id number] Oral 540 180 Other: Voiding Method Toilet Toilet Toilet # Voids 3 1 - Exam PHYSICAL EXAMINATION: GENERAL: The patient is alert and oriented x3, not in any acute distress. Well developed, well nourished. HEENT: Pupils are round and equally reacting to light. EOMI. No scleral icterus. No conjunctival pallor. Normocephalic, atraumatic. No pharyngeal erythema. No thyromegaly. CARDIOVASCULAR: S1 and S2 present. No murmurs, rubs, or gallops. PULMONARY: Chest is clear to auscultation, no wheezing or crackles. ABDOMEN: Soft, recent tenderness in the left upper quadrant and left lower quadrant area nondistended, normoactive bowel sounds. No palpable organomegaly. MUSCULOSKELETAL: No joint swelling or deformity. EXTREMITIES: No cyanosis, clubbing, or pedal edema. NEUROLOGICAL: Gross neurological examination did not reveal any focal deficits. SKIN: No rashes. - Labs CBC & Chem 7: 04/21/20 09:01 04/21/20 09:01 Labs: Abnormal Lab Results - Last 24 Hours (Table) 04/21/20 04/21/20 Range/Units 09: 09:01 RBC 3.41 L (3.80-5.40) m/uL Hgb 9.0 L (11.4-16.0) gm/dL Hct 29.7 L (34.0-46.0) % MCHC 30.2 L (31.0-37.0) g/dL Sodium 133 L (137-145) mmol/L BUN <2 L (7-17) mg/dL Creatinine 0.36 L (0.52-1.04) mg/dL Calcium 7.9 L (8.4-10.2) mg/dL Microbiology - Last 24 Hours (Table) 04/16/20 21:10 Blood Culture - Preliminary Blood No Growth after 96 hours Assessment and Plan Plan: -intra-abdominal abscess: Patient will continued on above-mentioned antibiotics may need expiratory laparotomy and drainage of abscess previous culture showed E. coli Klebsiella strep viridans streptococci and [place] patient is on antibiotics covering all these bacteria along with anaerobic coverage with metronidazole and antifungal as mentioned above -Crohn's disease patient is on immunotherapy -hyponatremia: Etiology is not clear that in further evaluate as patient hyponatremia appears to be chronic and probably SIADH from pain if it doesn't improve will consider working at a further -nicotine abuse: Counseling was provided
--- NOTE | 2020-04-21 14:50 | P.PN ---
Progress Note - Text Progress Note Date: 04/21/20 The patient's CAT scan performed yesterday shows evidence of stable abscess. On exam vital signs are stable. Abdomen is soft. There is evidence of left upper quadrant pain. Crohn's colitis. A long discussion with patient regarding subtotal clipped. Patient is agreeable for surgery. We will plan for subtotal colectomy and drainage of abscess on Sunday.
[2020-04-21] MEDS ORDERED: MAG HYDROX/AL HYDROX/SIMETH 30 ML CUP PO PRN ×2 (16:10→17:36)
[2020-04-21] MEDS ORDERED: PANTOPRAZOLE 40 MG TABLET PO ONE (16:41)
[2020-04-21] MEDS ORDERED: HYOSCYAMINE SULFATE 0.125 MG TAB PO ONE ×3 (16:41→21:33)
[2020-04-21] MEDS ORDERED: ACETAMINOPHEN TAB 325 MG TAB ONE (16:41)
[2020-04-21] MEDS ORDERED: MAG HYDROX/AL HYDROX/SIMETH 30 ML CUP ONE ×2 (16:41→21:33)
[2020-04-21] MEDS ORDERED: MORPHINE SULFATE 4 MG/ML SYRINGE ONE ×4 (16:41→21:33)
[2020-04-21] MEDS ORDERED: HEPARIN SODIUM,PORCINE 5,000 UNIT/ML 1 ML VIAL ONE ×2 (16:41→21:33)
--- NOTE | 2020-04-21 23:35 | PN ---
PROGRESS NOTE DATE OF SERVICE: 04/21/2020 REASON FOR FOLLOWUP: Abdominal abscess. INTERVAL HISTORY: The patient did spike a fever this afternoon of 101.2 degrees Fahrenheit. The patient has been afebrile since then. The patient denies having any chest pain, shortness of breath or cough. Still complaining of abdominal pain; no worsening, though. No nausea, no vomiting. No diarrhea. PHYSICAL EXAMINATION: Blood pressure 103/67 with a pulse of 80, temperature 97.6. She is 97% on room air. General description is a middle-aged female lying in bed in no distress. RESPIRATORY SYSTEM: Unlabored breathing. Clear to auscultation anteriorly. HEART: S1, S2. Regular rate and rhythm. ABDOMEN: Soft. Mildly tender. No guarding or rigidity. LABS: White count has normalized. CT repeat did show a stable abscess. DIAGNOSTIC IMPRESSION AND PLAN: Patient with an intraabdominal abscess in this patient with Crohn's disease. Plan is for drainage of the abscess and subtotal colectomy on Sunday. Will keep the patient on current broad-spectrum antibiotic and monitor clinical course closely. Continue with supportive care. MMODL / IJN: [id number] /
[2020-04-22] MEDS ORDERED: MORPHINE SULFATE 4 MG/ML SYRINGE ONE (05:38)
[2020-04-22] MEDS: metroNIDAZOLE-NS PMX 500 MG in SALINE 1 100ML.BAG IVPB SCH ×4 (06:09→23:25)
[2020-04-22] MEDS: PIPERACILLIN-TAZOBACTAM 3.375 GM in SODIUM CHLORIDE 0.9% 100 ML IVPB SCH ×3 (06:09→17:30)
[2020-04-22] MEDS: HEPARIN SODIUM,PORCINE 5,000 UNIT/ML 1 ML VIAL SQ SCH ×3 (06:09→20:37)
[2020-04-22] MEDS: HYOSCYAMINE SULFATE 0.125 MG TAB PO SCH ×4 (06:09→23:25)
[2020-04-22] MEDS: SODIUM CHLORIDE 0.9% 1,000 ML IV SCH ×3 (06:09→19:08)
[2020-04-22] MEDS: PANTOPRAZOLE 40 MG TABLET PO SCH ×2 (07:06→17:30)
[2020-04-22] MEDS: NICOTINE 14MG/24HR PATCH TRANSDERM SCH (07:09)
[2020-04-22] MEDS: MORPHINE SULFATE 4 MG/ML SYRINGE IV PRN ×4 (10:05→23:25)
--- NOTE | 2020-04-22 10:44 | P.PN ---
Subjective Progress Note Date: 04/21/20 Principal diagnosis: Crohn's colitis, abscess of the abdominal wall, abdominal pain The patient is seen lying in bed still reporting some abdominal tenderness. Also reporting some burning heartburn. Objective - Vital Signs Vital signs: Vital Signs Temp 101.2 F H 04/21/20 15:00 Pulse 90 04/21/20 15:00 Resp 16 04/21/20 15:00 BP 102/61 04/21/20 15:00 Pulse Ox 96 04/21/20 15:00 Intake & Output 04/20/20 04/21/20 04/21/20 18:59 06:59 18:59 Intake Total 540 1055 Balance 540 1055 Intake: Intake, IV Titration 875 Amount Piperacillin-Tazobactam 3 100 .375 gm In Sodium Chloride 0.9% 100 ml @ 25 mls/hr IVPB Q8HR [facility] Rx# :[id number] Sodium Chloride 0.9% 1, 675 000 ml @ 75 mls/hr IV . [id number] [facility] Rx#:[id number] metroNIDAZOLE-NS PMX 500 100 mg In Saline 1 100ml.bag @ 100 mls/hr IVPB Q8HR [facility] Rx#:[id number] Oral 540 180 Other: Voiding Method Toilet Toilet Toilet # Voids 3 1 - Exam On physical examination, patient appears comfortable in no apparent distress. HEAD: Normocephalic, atraumatic. EYES: No scleral icterus. No conjunctival injection. MOUTH: No lesions, tongue midline. NECK: Trachea midline, no gross abnormalities. ABDOMEN: Soft, moderately tender to palpation. Bowel sounds are positive. No organomegaly. No guarding or rigidity. EXTREMITIES: No pedal edema. SKIN: No rashes, no jaundice. NEUROLOGIC: Alert and oriented x3. No focal deficits. - Labs CBC & Chem 7: 04/21/20 09:01 04/21/20 09:01 Labs: Abnormal Lab Results - Last 24 Hours (Table) 04/21/20 04/21/20 Range/Units 09: 09: RBC 3.41 L (3.80-5.40) m/uL Hgb 9.0 L (11.4-16.0) gm/dL Hct 29.7 L (34.0-46.0) % MCHC 30.2 L (31.0-37.0) g/dL Sodium 133 L (137-145) mmol/L BUN <2 L (7-17) mg/dL Creatinine 0.36 L (0.52-1.04) mg/dL Calcium 7.9 L (8.4-10.2) mg/dL Microbiology - Last 24 Hours (Table) 04/16/20 21:10 Blood Culture - Preliminary Blood No Growth after 96 hours Assessment and Plan (1) Abscess of abdominal wall Narrative/Plan: 45-year-old female with a history of severe Crohn's colitis started on Remicade infusions recently been seen in the hospital for abdominal pain and findings of a left lower abdominal wall abscess which was treated with aspiration of 10 mL of fluid from the abscess with either service unable to place drain has emesis was not large enough at that time. Patient was on presentation antibiotic therapies and discharged just a few days ago to complete antibiotic therapy. However the patient developed fevers with associated chills and riders and presented back to the hospital as instructed for further treatment. Computed tomography scan on current admission showed a left lower abdominal wall abscess slightly increased in size from prior computed tomography scan evaluation. Currently she has been placed on broad-spectrum antibiotic therapy and antifungal therapy by the infectious disease service based on culture from prior drainage. Laboratory evaluation that showed markedly elevated CRP at 213 and ESR at 75. Current Visit: Yes Status: Acute Code(s): L02.211 - CUTANEOUS ABSCESS OF ABD OMINAL WALL SNOMED Code(s): 95750983 (2) Crohn disease Current Visit: No Status: Acute Code(s): K50.90 - CROHN'S DISEASE, UNSPECIFIED, WITHOUT COMPLICATIONS SNOMED Code(s): 10815866 (3) LLQ abdominal pain Current Visit: No Status: Acute Code(s): R10.32 - LEFT LOWER QUADRANT PAIN SNOMED Code(s): 975238213 Plan: Supportive care Clear liquid diet initiated by surgical service Appreciate recommendations by surgery and infectious disease Continue Zosyn, Flagyl and Eraxis per ID recommendations Plan at this time is her subtotal colectomy with the surgical service Thank you for allowing us to participate in the care of the patient
--- NOTE | 2020-04-22 12:01 | P.PN ---
Progress Note - Text Progress Note Date: 04/22/20 The patient is feeling better. She has complaints of left-sided abdominal wall pain. On exam her lesser stable. Abdomen is soft there is tenderness left abdominal wall. Patient will undergo subtotal colectomy with drainage of abdominal abscess tomorrow.
[2020-04-22] MEDS: ANIDULAFUNGIN 100 MG in SODIUM CHLORIDE 0.9% 100 ML IVPB SCH (12:21)
[2020-04-22] MEDS: ONDANSETRON 4 MG/2 ML VIAL IVP PRN (12:27)
--- NOTE | 2020-04-22 14:18 | P.PN ---
Subjective Progress Note Date: 04/22/20 Principal diagnosis: 45-year-old female patient is admitted for intra-abdominal abscessfailed outpatient antibiotic therapy is admitted for IV antibiotics and further violation original surgery patient may require x-ray laparotomy and drainage of abscess.patient is presently on metronidazole vancomycin and antifungals infectious disease general surgery and gastroenterology of following the patient patient does have history of Crohn's diseasethe patient still has abdominal pain but bit better. 04/21/2020 Patient pain is better controlled. Plan is subtotal colectomy on Sunday. Constitutional: Denied any fatigue denied any fever. Cardio vascular: denied any chest pain, palpitations Gastrointestinal as mentioned in HPI Pulmonary: Denied any shortness of breath cough Neurologic denied any new focal deficits 04/22/2020 Patient is seen and evaluated and follow-up is currently maintained on IV antibiotics in the form of Flagyl and Zosyn and will continue at this time. Patient's sodium is 133 and potassium is improved at 3.7 today. Patient is scheduled to undergo subtotal colectomy with surgery tomorrow for an abdominal wall abscess. Patient denies any chest pain, shortness of breath, or palpitations. Patient is afebrile. No reports of nausea or vomiting and patient is tolerating diet. Patient will be nothing by mouth tonight. Objective - Vital Signs Vital signs: Vital Signs Temp 98.9 F 04/22/20 07:00 Pulse 87 04/22/20 07:00 Resp 16 04/22/20 07:00 BP 100/64 04/22/20 07:00 Pulse Ox 93 L 04/22/20 07:00 Intake & Output 04/21/20 04/22/20 04/22/20 18:59 06:59 18:59 Intake Total 1220 Balance 1220 Weight 66.678 kg Intake: Intake, IV Titration 1100 Amount Piperacillin-Tazobactam 3 100 .375 gm In Sodium Chloride 0.9% 100 ml @ 25 mls/hr IVPB Q8HR [facility] Rx# :[id number] Sodium Chloride 0.9% 1, 900 000 ml @ 75 mls/hr IV . [id number] [facility] Rx#:[id number] metroNIDAZOLE-NS PMX 500 100 mg In Saline 1 100ml.bag @ 100 mls/hr IVPB Q8HR [facility] Rx#:[id number] Oral 120 Other: Voiding Method Toilet Toilet # Voids 4 1 - Exam GENERAL: The patient is alert and oriented x3, not in any acute distress. Well developed, well nourished. HEENT: Pupils are round and equally reacting to light. EOMI. No scleral icterus. No conjunctival pallor. Normocephalic, atraumatic. No pharyngeal erythema. No thyromegaly. CARDIOVASCULAR: S1 and S2 present. No murmurs, rubs, or gallops. PULMONARY: Chest is clear to auscultation, no wheezing or crackles. ABDOMEN: Soft, Mild tenderness in the left upper quadrant and left lower quadrant area nondistended, normoactive bowel sounds. No palpable organomegaly. MUSCULOSKELETAL: No joint swelling or deformity. EXTREMITIES: No cyanosis, clubbing, or pedal edema. NEUROLOGICAL: Gross neurological examination did not reveal any focal deficits. SKIN: No rashes. - Labs CBC & Chem 7: 04/21/20 09:01 04/21/20 09:01 Labs: Microbiology - Last 24 Hours (Table) 04/16/20 21:10 Blood Culture - Preliminary Blood No Growth after 120 hours Assessment and Plan Assessment: -intra-abdominal abscess: Patient Is maintained on Flagyl and Zosyn and will co ntinue at this time. Patient scheduled to undergo subtotal colectomy tomorrow. -Crohn's disease patient is on immunotherapy -Anemia of chronic disease -hyponatremia: Etiology is not clear that in further evaluate as patient hyponatremia appears to be chronic and probably SIADH from pain, Improving. Current sodium is 133 -nicotine abuse: Counseling was provided Plan: Continue current medications, management, and symptomatic treatment. Patient is currently tolerating diet and will continue until midnight and patient will be made nothing by mouth for surgery tomorrow. Surgery following closely along with GI and infectious disease. Will repeat a.m. labs. Further recommendations to follow.
--- NOTE | 2020-04-22 23:09 | PN ---
PROGRESS NOTE DATE OF SERVICE: 04/22/2020 REASON FOR FOLLOWUP: Abdominal abscess. INTERVAL HISTORY: The patient is currently afebrile. The patient is breathing comfortably. Denies having any chest pain or shortness of breath or cough. Abdominal pain is currently controlled. No nausea, vomiting or diarrhea. PHYSICAL EXAMINATION: Blood pressure 99/63 with a pulse of 80, temperature 98.7. She is 98% on room air. General description is a middle-aged female up in the bed in no distress. RESPIRATORY SYSTEM: Unlabored breathing. Clear to auscultation anteriorly. HEART: S1, S2. Regular rate and rhythm. ABDOMEN: Soft, mildly tender. No guarding or rigidity. LABS: No new labs have been obtained today. Blood culture has been negative. DIAGNOSTIC IMPRESSION AND PLAN: Patient with abdominal abscess in this patient who did have underlying Crohn's disease. Abdominal abscess was stable on a CT that was done yesterday. Scheduled for drainage of the abscess with subtotal colectomy tomorrow. Recommend obtaining deep cultures. Continue with Zosyn and Eraxis while monitoring her clinical course closely. Continue with supportive care. MMODL / IJN: [id number] /
[2020-04-23] MEDS: PIPERACILLIN-TAZOBACTAM 3.375 GM in SODIUM CHLORIDE 0.9% 100 ML IVPB SCH ×3 (00:50→18:21)
[2020-04-23] MEDS: MORPHINE SULFATE 4 MG/ML SYRINGE IV PRN ×2 (03:08→20:29)
--- NOTE | 2020-04-23 05:48 | P.PN ---
Subjective Progress Note Date: 04/22/20 Principal diagnosis: Crohn's colitis, abscess of the abdominal wall, abdominal pain The patient is seen lying in bed still reporting some abdominal pain and tenderness. She is scheduled for subtotal colectomy tomorrow. Objective - Vital Signs Vital signs: Vital Signs Temp 98.9 F 04/22/20 07:00 Pulse 87 04/22/20 07:00 Resp 16 04/22/20 07:00 BP 100/64 04/22/20 07:00 Pulse Ox 93 L 04/22/20 07:00 Intake & Output 04/21/20 04/22/20 04/22/20 18:59 06:59 18:59 Intake Total 1220 Balance 1220 Weight 66.678 kg Intake: Intake, IV Titration 1100 Amount Piperacillin-Tazobactam 3 100 .375 gm In Sodium Chloride 0.9% 100 ml @ 25 mls/hr IVPB Q8HR [facility] Rx# :[id number] Sodium Chloride 0.9% 1, 900 000 ml @ 75 mls/hr IV . [id number] [facility] Rx#:[id number] metroNIDAZOLE-NS PMX 500 100 mg In Saline 1 100ml.bag @ 100 mls/hr IVPB Q8HR [facility] Rx#:[id number] Oral 120 Other: Voiding Method Toilet Toilet # Voids 4 1 - Exam On physical examination, patient appears comfortable in no apparent distress. HEAD: Normocephalic, atraumatic. EYES: No scleral icterus. No conjunctival injection. MOUTH: No lesions, tongue midline. NECK: Trachea midline, no gross abnormalities. ABDOMEN: Soft, moderately tender to palpation. Bowel sounds are positive. No organomegaly. No guarding or rigidity. EXTREMITIES: No pedal edema. SKIN: No rashes, no jaundice. NEUROLOGIC: Alert and oriented x3. No focal deficits. - Labs CBC & Chem 7: 04/21/20 09:01 04/21/20 09:01 Labs: Microbiology - Last 24 Hours (Table) 04/16/20 21:10 Blood Culture - Preliminary Blood No Growth after 120 hours Assessment and Plan (1) Abscess of abdominal wall Narrative/Plan: 45-year-old female with a history of severe Crohn's colitis started on Remicade infusions recently been seen in the hospital for abdominal pain and findings of a left lower abdominal wall abscess which was treated with aspiration of 10 mL of fluid from the abscess with either service unable to place drain has emesis was not large enough at that time. Patient was on presentation antibiotic therapies and discharged just a few days ago to complete antibiotic therapy. However the patient developed fevers with associated chills and riders and prese nted back to the hospital as instructed for further treatment. Computed tomography scan on current admission showed a left lower abdominal wall abscess slightly increased in size from prior computed tomography scan evaluation. Currently she has been placed on broad-spectrum antibiotic therapy and antifungal therapy by the infectious disease service based on culture from prior drainage. Laboratory evaluation that showed markedly elevated CRP at 213 and ESR at 75. Current Visit: Yes Status: Acute Code(s): L02.211 - CUTANEOUS ABSCESS OF ABDOMINAL WALL SNOMED Code(s): 58612721 (2) Crohn disease Current Visit: No Status: Acute Code(s): K50.90 - CROHN'S DISEASE, UNSPECIFIED, WITHOUT COMPLICATIONS SNOMED Code(s): 91076791 (3) LLQ abdominal pain Current Visit: No Status: Acute Code(s): R10.32 - LEFT LOWER QUADRANT PAIN SNOMED Code(s): 011394839 Plan: Supportive care Clear liquid diet initiated by surgical service Appreciate recommendations by surgery and infectious disease Continue Zosyn, Flagyl and Eraxis per ID recommendations Plan at this time is her subtotal colectomy with the surgical service Thank you for allowing us to participate in the care of the patient
[2020-04-23] MEDS: PANTOPRAZOLE 40 MG TABLET PO SCH ×2 (07:30→17:00)
[2020-04-23] MEDS: metroNIDAZOLE-NS PMX 500 MG in SALINE 1 100ML.BAG IVPB SCH ×2 (07:32→17:00)
[2020-04-23] MEDS: HEPARIN SODIUM,PORCINE 5,000 UNIT/ML 1 ML VIAL SQ SCH ×2 (07:36→20:29)
[2020-04-23 07:42] LABS: Basophils % (A) 0 %; Eosinophils % (A) 0 %; HCT 27.7 % (34.0-46.0); HGB 8.1 gm/dL (11.4-16.0); Hypochromasia Marked; Lymphocytes # (A) 1.3 k/uL (1.0-4.8); Lymphocytes % (A) 17 %; MCH 25.1 pg (25.0-35.0); MCHC 29.3 g/dL (31.0-37.0); MCV 85.5 fL (80.0-100.0); Mean Platelet Volume 6.5; Monocytes # (A) 0.3 k/uL (0-1.0); Monocytes % (A) 4 %; Neutrophils # (A) 5.6 k/uL (1.3-7.7); Neutrophils % (A) 77 %; Platelet Count 419 k/uL (150-450); RBC 3.24 m/uL (3.80-5.40); RDW 15.6 % (11.5-15.5); WBC 7.3 k/uL (3.8-10.6)
[2020-04-23 07:51] LABS: African American GFR (CKD) >90 (>60 ml/min/1.73 sqM); Anion Gap 8 mmol/L; Blood Urea Nitrogen <2 mg/dL (7-17); Calcium 7.5 mg/dL (8.4-10.2); Carbon Dioxide 25 mmol/L (22-30); Chloride 100 mmol/L (98-107); Glucose 83 mg/dL (74-99); Non-African American GFR(CKD) >90 (>60 ml/min/1.73 sqM); Potassium 3.3 mmol/L (3.5-5.1); Sodium 133 mmol/L (137-145)
[2020-04-23] MEDS ORDERED: IV FLUID CONTINUATION 200 ML IV ONE (08:26)
[2020-04-23] MEDS ORDERED: ONDANSETRON 4 MG/2 ML VIAL ONE (08:28)
[2020-04-23] MEDS ORDERED: HEPARIN SODIUM,PORCINE 5,000 UNIT/ML 1 ML VIAL ONE (08:28)
[2020-04-23] MEDS ORDERED: ONDANSETRON 4 MG/2 ML VIAL IVP ONE (08:31)
[2020-04-23] MEDS ORDERED: HEPARIN SODIUM,PORCINE 5,000 UNIT/ML 1 ML VIAL SQ ONE (09:01)
[2020-04-23] MEDS: NICOTINE 14MG/24HR PATCH TRANSDERM SCH (09:19)
[2020-04-23] MEDS: HYOSCYAMINE SULFATE 0.125 MG TAB PO SCH ×2 (09:19→15:48)
[2020-04-23] MEDS ORDERED: LIDOCAINE 1% INJ 10MG/ML (20 ML MDV) ONE (09:26)
[2020-04-23] MEDS ORDERED: fentaNYL (PF) 50 MCG/ML 2 ML AMP ONE (09:26)
[2020-04-23] MEDS ORDERED: PROPOFOL 10 MG/ML 20 ML VIAL IV ONE (09:26)
[2020-04-23] MEDS ORDERED: HYDROmorphone (PF) 1 MG/ML ONE (09:26)
[2020-04-23] MEDS ORDERED: ESMOLOL 100 MG/10 ML VIAL ONE (09:26)
[2020-04-23] MEDS ORDERED: SUCCINYLCHOLINE CHLORIDE 100 MG/5 ML SYR IV ONE (09:26)
[2020-04-23] MEDS ORDERED: KETAMINE 10 MG/ML 20 ML VIAL ONE (09:26)
[2020-04-23] MEDS ORDERED: NEOSTIGMINE 1 MG/ML 10 ML VIAL ONE (09:26)
[2020-04-23] MEDS ORDERED: GLYCOPYRROLATE 0.2 MG/ML 2 ML VIAL ONE (09:26)
[2020-04-23] MEDS ORDERED: MIDAZOLAM 2 MG/2 ML VIAL ONE (09:26)
[2020-04-23] MEDS ORDERED: ROCURONIUM BROMIDE 10 MG/ML 5 ML VIAL IV ONE (09:26)
[2020-04-23] MEDS ORDERED: LACTATED RINGERS 1,000 ML IV ONE ×3 (09:29→11:30)
[2020-04-23] MEDS ORDERED: SODIUM CHLORIDE 0.9% 500 ML 500 ML IV ONE (09:40)
[2020-04-23 10:03] VITALS: BMI 23.0
[2020-04-23] MEDS ORDERED: METOCLOPRAMIDE 5 MG/ML 2 ML VIAL IVP PRN (10:57)
[2020-04-23] MEDS ORDERED: ONDANSETRON 4 MG/2 ML VIAL IVP PRN (10:57)
[2020-04-23] MEDS: HYDROmorphone 0.5 MG/0.5 ML SYRINGE IVP PRN ×5 (11:30→12:35)
[2020-04-23] MEDS ORDERED: KETOROLAC 30 MG/ML 1 ML VIAL IVP ONE (12:23)
--- NOTE | 2020-04-23 13:10 | P.PN ---
Subjective Progress Note Date: 04/23/20 Principal diagnosis: 45-year-old female patient is admitted for intra-abdominal abscessfailed outpatient antibiotic therapy is admitted for IV antibiotics and further violation original surgery patient may require x-ray laparotomy and drainage of abscess.patient is presently on metronidazole vancomycin and antifungals infectious disease general surgery and gastroenterology of following the patient patient does have history of Crohn's diseasethe patient still has abdominal pain but bit better. 04/21/2020 Patient pain is better controlled. Plan is subtotal colectomy on Sunday. Constitutional: Denied any fatigue denied any fever. Cardio vascular: denied any chest pain, palpitations Gastrointestinal as mentioned in HPI Pulmonary: Denied any shortness of breath cough Neurologic denied any new focal deficits 04/22/2020 Patient is seen and evaluated and follow-up is currently maintained on IV antibiotics in the form of Flagyl and Zosyn and will continue at this time. Patient's sodium is 133 and potassium is improved at 3.7 today. Patient is scheduled to undergo subtotal colectomy with surgery tomorrow for an abdominal wall abscess. Patient denies any chest pain, shortness of breath, or palpitations. Patient is afebrile. No reports of nausea or vomiting and patient is tolerating diet. Patient will be nothing by mouth tonight. 04/23/2020 She was seen in follow-up today and undergoing incision and drainage of the abdominal abscess along with subtotal colectomy this morning. Patient has been nothing by mouth with no acute overnight issues. Patient is maintained on Eraxis and Zosyn and will continue. Infectious disease is following. Will await cultures from abdominal wall abscess. Patient continues to have abdominal discomfort and was tearful this morning about the procedure. Currently no reports of chest pain, shortness of breath, or palpitations. Patient is afebrile. No reports of nausea or vomiting and patient has been nothing by elba th. Sodium remains at 133. Potassium is 3.3 and will be replaced today. Current hemoglobin is 8.1. Objective - Vital Signs Vital signs: Vital Signs Temp 97.2 F L 04/23/20 11:04 Pulse 83 04/23/20 12:50 Resp 16 04/23/20 12:50 BP 90/55 04/23/20 12:50 Pulse Ox 92 L 04/23/20 12:50 Intake & Output 04/22/20 04/23/2020 18:59 06:59 18:59 Intake Total 800 1600 Output Total 500 Balance 800 1100 Weight 66.678 kg 66.678 kg Intake: IV 1600 Intake, IV Titration 800 Amount Piperacillin-Tazobactam 3 100 .375 gm In Sodium Chloride 0.9% 100 ml @ 25 mls/hr IVPB Q8HR [facility] Rx# :[id number] Sodium Chloride 0.9% 1, 600 000 ml @ 75 mls/hr IV . [id number] [facility] Rx#:[id number] metroNIDAZOLE-NS PMX 500 100 mg In Saline 1 100ml.bag @ 100 mls/hr IVPB Q8HR [facility] Rx#:[id number] Output: Urine 450 Estimated Blood Loss 50 Other: # Voids 3 2 - Exam GENERAL: The patient is alert and oriented x3, not in any acute distress. Tearful, Well developed, well nourished. HEENT: Pupils are round and equally reacting to light. EOMI. No scleral icterus. No conjunctival pallor. Normocephalic, atraumatic. No pharyngeal erythema. No thyromegaly. CARDIOVASCULAR: S1 and S2 present. No murmurs, rubs, or gallops. PULMONARY: Chest is clear to auscultation, no wheezing or crackles. ABDOMEN: Soft, Mild tenderness in the left upper quadrant and left lower quadrant area nondistended, normoactive bowel sounds. No palpable organomegaly. MUSCULOSKELETAL: No joint swelling or deformity. EXTREMITIES: No cyanosis, clubbing, or pedal edema. NEUROLOGICAL: Gross neurological examination did not reveal any focal deficits. SKIN: No rashes. - Labs CBC & Chem 7: 04/23/20 07:20 04/23/20 07:20 Labs: Abnormal Lab Results - Last 24 Hours (Table) 04/23/20 04/23/20 Range/Units 07: 07:20 RBC 3.24 L (3.80-5.40) m/uL Hgb 8.1 L (11.4-16.0) gm/dL Hct 27.7 L (34.0-46.0) % MCHC 29.3 L (31.0-37.0) g/dL RDW 15.6 H (11.5-15.5) % Sodium 133 L (137-145) mmol/L Potassium 3.3 L (3.5-5.1) mmol/L BUN <2 L (7-17) mg/dL Creatinine 0.33 L (0.52-1.04) mg/dL Calcium 7.5 L (8.4-10.2) mg/dL Microbiology - Last 24 Hours (Table) 04/16/20 21:10 Blood Culture - Final Blood No Growth after 144 hours Assessment and Plan Assessment: -intra-abdominal abscess: Patient Is maintained on Eraxis and Zosyn and will continue at this time. Patient undergoing incision and drainage of abdominal wall abscess along with subtotal colectomy as morning -Crohn's disease patient is on immunotherapy -Anemia of chronic disease -hyponatremia: Etiology is not clear that in further evaluate as patient hyponatremia appears to be chronic and probably SIADH from pain, Improving. Current sodium is 133 -nicotine abuse: Counseling was provided Plan: Continue current medications, management, and symptomatic treatment. Patient is to undergo surgery and incision and drainage of abdominal wall abscess today. Will await report. Surgery following closely along with GI and infectious disease. Will repeat a.m. labs. Further recommendations to follow.
[2020-04-23] MEDS: ANIDULAFUNGIN 100 MG in SODIUM CHLORIDE 0.9% 100 ML IVPB SCH (13:36)
[2020-04-23] MEDS: D5-0.45% NACL WITH KCL 20MEQ/L 1,000 ML IV SCH ×2 (13:36→20:24)
[2020-04-23] MEDS: HYDROmorphone 1 MG/ML 1 ML SYRINGE IVP PRN ×2 (14:35→17:25)
--- NOTE | 2020-04-23 15:19 | PN ---
PROGRESS NOTE DATE OF DICTATION: 04/23/2020 Patient is a 45-year-old pleasant white female admitted to the hospital with intraabdominal abscess/anterior wall abscess secondary to complicated Crohn's colitis. The patient has been on IV antibiotics and she is scheduled for a subtotal colectomy with drainage of the abscess today, afternoon. In the meantime, she still continues to complain of severe pain on the left side and there was a small protuberance at the site of recent incision and incision for the abscess that was 10 days ago. No fever, chills, or night sweats. PHYSICAL EXAMINATION: Appears comfortable, ini no apparent distress. Vital signs are stable. Blood pressure 90/55, pulse rate 98, temperature 98.2. HEENT: Examination unremarkable, conjunctivae are pink, sclerae nonicteric, oral cavity no lesions. NECK: No JVD or lymph node enlargement. CHEST: Clear to auscultation. HEART: Regular rate and rhythm. ABDOMEN: Soft. There was severe tenderness left upper quadrant area. A small protuberance at the site of drainage of abscess with severe swelling around that site noted. EXTREMITIES: No pedal edema. SKIN: No rashes. NEURO: Alert and oriented x3. No focal deficits. LABS: WBC 7.3, hemoglobin 8.1, platelets normal. Basic metabolic panel is within normal limits. IMPRESSION: Severe Crohn's colitis, complicated with intraabdominal abscess, extending to the anterior abdominal wall on broad-spectrum antibiotics with no significant improvement. Surgery following the patient closely. In fact, patient is scheduled for subtotal colectomy with drainage of the abscess this afternoon. RECOMMENDATIONS: 1. Continue with broad-spectrum antibiotics. 2. Pain medications as needed. 3. Keep her n.p.o. for surgery. 4. Will follow with you closely. Thank you for this consultation. MMODL / IJN: [id number] /
[2020-04-23] MEDS: SODIUM CHLORIDE 0.9% 1,000 ML IV SCH (15:47)
--- NOTE | 2020-04-23 16:40 | PN ---
PROGRESS NOTE DATE OF SERVICE: 04/23/2020 REASON FOR FOLLOWUP: Abdominal abscess. INTERVAL HISTORY: The patient is currently afebrile. The patient has been taken to the OR, status post subtotal colectomy. The patient tolerated the procedure. Complaining of pain but no worsening. No nausea, no vomiting, no chest pain, shortness of breath or cough. PHYSICAL EXAMINATION: Blood pressure is 97/57, pulse of 83, temperature 98. She is 94%. General description is a young female lying in bed in no distress. RESPIRATORY SYSTEM: Unlabored breathing. Clear to auscultation anteriorly. HEART: S1, S2. Regular rate and rhythm. ABDOMEN: Soft. Mildly tender. EXTREMITIES: No edema of the feet. LABS: Hemoglobin 8.1, white count 7.3. BUN of 2, creatinine 0.33. DIAGNOSTIC IMPRESSION AND PLAN: Patient with abdominal abscess in this patient who did have a complicated abdominal history with Crohn's disease, status post subtotal colectomy and drainage of the abscess. Will wait for the culture to finalize. Continue Zosyn and monitor clinical course closely. MMODL / IJN: [id number] /
[2020-04-24] MEDS: HYOSCYAMINE SULFATE 0.125 MG TAB PO SCH ×4 (00:07→23:14)
[2020-04-24] MEDS: metroNIDAZOLE-NS PMX 500 MG in SALINE 1 100ML.BAG IVPB SCH ×3 (00:08→16:09)
[2020-04-24] MEDS: D5-0.45% NACL WITH KCL 20MEQ/L 1,000 ML IV SCH ×3 (00:41→17:50)
[2020-04-24] MEDS: HYDROmorphone 1 MG/ML 1 ML SYRINGE IVP PRN ×5 (00:42→21:24)
[2020-04-24] MEDS: PIPERACILLIN-TAZOBACTAM 3.375 GM in SODIUM CHLORIDE 0.9% 100 ML IVPB SCH ×4 (00:42→23:14)
[2020-04-24] MEDS: SODIUM CHLORIDE 0.9% 1,000 ML IV SCH ×2 (04:12→17:45)
[2020-04-24] MEDS: HEPARIN SODIUM,PORCINE 5,000 UNIT/ML 1 ML VIAL SQ SCH ×2 (07:15→21:25)
[2020-04-24] MEDS: PANTOPRAZOLE 40 MG TABLET PO SCH ×2 (07:15→17:44)
[2020-04-24] MEDS: NICOTINE 14MG/24HR PATCH TRANSDERM SCH (07:28)
[2020-04-24 08:50] LABS: Basophils % (A) 0 %; Eosinophils # (A) 0.1 k/uL (0-0.7); Eosinophils % (A) 1 %; HCT 30.7 % (34.0-46.0); HGB 9.3 gm/dL (11.4-16.0); Hypochromasia Marked; Lymphocytes # (A) 1.3 k/uL (1.0-4.8); Lymphocytes % (A) 17 %; MCH 26.3 pg (25.0-35.0); MCHC 30.2 g/dL (31.0-37.0); MCV 87.2 fL (80.0-100.0); Mean Platelet Volume 6.5; Monocytes # (A) 0.2 k/uL (0-1.0); Monocytes % (A) 3 %; Neutrophils # (A) 5.9 k/uL (1.3-7.7); Neutrophils % (A) 78 %; Platelet Count 537 k/uL (150-450); RBC 3.52 m/uL (3.80-5.40); RDW 15.5 % (11.5-15.5); WBC 7.6 k/uL (3.8-10.6)
[2020-04-24 09:00] LABS: African American GFR (CKD) >90 (>60 ml/min/1.73 sqM); Anion Gap 3 mmol/L; Blood Urea Nitrogen <2 mg/dL (7-17); Calcium 7.5 mg/dL (8.4-10.2); Carbon Dioxide 28 mmol/L (22-30); Chloride 101 mmol/L (98-107); Glucose 119 mg/dL (74-99); Non-African American GFR(CKD) >90 (>60 ml/min/1.73 sqM); Potassium 3.7 mmol/L (3.5-5.1); Sodium 132 mmol/L (137-145)
[2020-04-24] MEDS: MORPHINE SULFATE 4 MG/ML SYRINGE IV PRN (10:12)
[2020-04-24] MEDS: ANIDULAFUNGIN 100 MG in SODIUM CHLORIDE 0.9% 100 ML IVPB SCH (11:22)
[2020-04-24] MEDS: KETOROLAC 30 MG/ML 1 ML VIAL IVP PRN ×3 (12:35→23:14)
--- NOTE | 2020-04-24 13:36 | P.PN ---
Subjective 45-year-old female patient is admitted for intra-abdominal abscessfailed outpatient antibiotic therapy is admitted for IV antibiotics and further vi olation original surgery patient may require x-ray laparotomy and drainage of abscess.patient is presently on metronidazole vancomycin and antifungals infectious disease general surgery and gastroenterology of following the patient patient does have history of Crohn's diseasethe patient still has abdominal pain but bit better. 04/21/2020 Patient pain is better controlled. Plan is subtotal colectomy on Sunday. 04/22/2020 Patient is seen and evaluated and follow-up is currently maintained on IV antibiotics in the form of Flagyl and Zosyn and will continue at this time. Patient's sodium is 133 and potassium is improved at 3.7 today. Patient is scheduled to undergo subtotal colectomy with surgery tomorrow for an abdominal wall abscess. Patient denies any chest pain, shortness of breath, or palpitations. Patient is afebrile. No reports of nausea or vomiting and patient is tolerating diet. Patient will be nothing by mouth tonight. 04/23/2020 She was seen in follow-up today and undergoing incision and drainage of the abdominal abscess along with subtotal colectomy this morning. Patient has been nothing by mouth with no acute overnight issues. Patient is maintained on Eraxis and Zosyn and will continue. Infectious disease is following. Will await cultures from abdominal wall abscess. Patient continues to have abdominal discomfort and was tearful this morning about the procedure. Currently no reports of chest pain, shortness of breath, or palpitations. Patient is a febrile. No reports of nausea or vomiting and patient has been nothing by mouth. Sodium remains at 133. Potassium is 3.3 and will be replaced today. Current hemoglobin is 8.1. 04/24/2020 Patient is still having severe crampy abdominal pain patient is already on Levsin patient is also receiving Dilaudid patient was started on Toradol. Patient didn't pass gas yet. Patient has a colostomy bag in place. Constitutional: Denied any fatigue denied any fever. Cardio vascular: denied any chest pain, palpitations Gastrointestinal as mentioned in HPI Pulmonary: Denied any shortness of breath cough Neurologic denied any new focal deficits All inpatient medications were reviewed and appropriate changes in these medications as dictated in the interval history and assessment and plan. Objective - Vital Signs Vital signs: Vital Signs Temp 97.6 F 04/24/20 07:00 Pulse 78 04/24/20 07:00 Resp 16 04/24/20 07:30 BP 124/83 04/24/20 07:00 Pulse Ox 96 04/24/20 07:00 Intake & Output 04/23/20 04/24/20 04/24/20 18:59 06:59 18:59 Intake Total 1600 Output Total 715 465 Balance 885 -465 Weight 66.678 kg Intake: IV 1600 Output: Drainage 140 90 Left ABDOMEN 140 90 Urine 525 375 Estimated Blood Loss 50 Other: Voiding Method Indwelling Catheter Indwelling Catheter Indwelling Catheter - Exam GENERAL: The patient is alert and oriented x3, not in any acute distress. Patient appears to be in severe pain Well developed, well nourished. HEENT: Pupils are round and equally reacting to light. EOMI. No scleral icterus. No conjunctival pallor. Normocephalic, atraumatic. No pharyngeal erythema. No thyromegaly. CARDIOVASCULAR: S1 and S2 present. No murmurs, rubs, or gallops. PULMONARY: Chest is clear to auscultation, no wheezing or crackles. ABDOMEN: Soft, Mild tenderness in the left upper quadrant and left lower quadrant area nondistended, normoactive bowel sounds. No palpable organomegaly. Patient has a colostomy bag MUSCULOSKELETAL: No joint swelling or deformity. EXTREMITIES: No cyanosis, clubbing, or pedal edema. NEUROLOGICAL: Gross neurological examination did not reveal any focal deficits. SKIN: No rashes. - Labs CBC & Chem 7: 04/24/20 08:36 04/24/20 08:36 Labs: Abnormal Lab Results - Last 24 Hours (Table) 04/24/20 04/24/20 Range/Units 08:36 08:36 RBC 3.52 L (3.80-5.40) m/uL Hgb 9.3 L (11.4-16.0) gm/dL Hct 30.7 L (34.0-46.0) % MCHC 30.2 L (31.0-37.0) g/dL Plt Count 537 H (150-450) k/uL Sodium 132 L (137-145) mmol/L BUN <2 L (7-17) mg/dL Creatinine 0.30 L (0.52-1.04) mg/dL Glucose 119 H (74-99) mg/dL Calcium 7.5 L (8.4-10.2) mg/dL Microbiology - Last 24 Hours (Table) 04/23/20 10:27 Gram Stain - Preliminary Abdomen Wound Culture - Preliminary 04/23/20 10:27 Anaerobic Culture - Preliminary Abdomen Assessment and Plan Plan: -intra-abdominal abscess: Patient Is maintained on Eraxis and Zosyn and will continue at this time. 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 Although sodium remained stable at around 133 -nicotine abuse: Counseling was provided
--- NOTE | 2020-04-24 13:40 | P.PN ---
Subjective Progress Note Date: 04/24/20 Principal diagnosis: Crohn's Patient complaining of abdominal spastic muscular pain today. White blood cell count 7.6, hemoglobin 9.3. Vital signs are stable. Does respond to IV pain medication. Objective - Vital Signs Vital signs: Vital Signs Temp 97.6 F 04/24/20 07:00 Pulse 78 04/24/20 07:00 Resp 16 04/24/20 07:30 BP 124/83 04/24/20 07:00 Pulse Ox 96 04/24/20 07:00 Intake & Output 04/23/20 04/24/20 04/24/20 18:59 06:59 18:59 Intake Total 1600 Output Total 715 465 Balance 885 -465 Weight 66.678 kg Intake: IV 1600 Output: Drainage 140 90 Left ABDOMEN 140 90 Urine 525 375 Estimated Blood Loss 50 Other: Voiding Method Indwelling Catheter Indwelling Catheter Indwelling Catheter - Exam Abdomen: Soft, nondistended, surgical tenderness noted, ostomy pink - Labs CBC & Chem 7: 04/24/20 08:36 04/24/20 08:36 Labs: Abnormal Lab Results - Last 24 Hours (Table) 04/24/20 04/24/20 Range/Units 08:36 08:36 RBC 3.52 L (3.80-5.40) m/uL Hgb 9.3 L (11.4-16.0) gm/dL Hct 30.7 L (34.0-46.0) % MCHC 30.2 L (31.0-37.0) g/dL Plt Count 537 H (150-450) k/uL Sodium 132 L (137-145) mmol/L BUN <2 L (7-17) mg/dL Creatinine 0.30 L (0.52-1.04) mg/dL Glucose 119 H (74-99) mg/dL Calcium 7.5 L (8.4-10.2) mg/dL Microbiology - Last 24 Hours (Table) 04/23/20 10:27 Gram Stain - Preliminary Abdomen Wound Culture - Preliminary 04/23/20 10:27 Anaerobic Culture - Preliminary Abdomen Assessment and Plan Plan: Continue liquid diet. Add Toradol for pain control. Gradually increase activity.
--- NOTE | 2020-04-24 16:26 | PN ---
PROGRESS NOTE DATE OF SERVICE: 04/24/2020 REASON FOR FOLLOWUP: Abdominal abscess. INTERVAL HISTORY: Patient is currently afebrile. Patient is breathing comfortably. Abdominal pain is currently controlled. No chest pain, shortness of breath or cough. PHYSICAL EXAMINATION: Blood pressure 112/73 with a pulse of 73, temperature is 97.5. She is 98% on room air. General description is a middle-aged female lying in bed in no distress. Respiratory system: Unlabored breathing, clear to auscultation anteriorly. Heart S1, S2. Regular rate and rhythm. Abdomen soft, mildly tender. LABS: Hemoglobin 9.1, white count 7.3, BUN of 2, creatinine 0.80. The abdominal culture is currently pending. DIAGNOSTIC IMPRESSION AND PLAN: Patient with abdominal abscess with complicated Crohn's disease status post subtotal colectomy, drainage of the abscess. Cultures are currently pending. Continue with Zosyn and monitor clinical course closely. MMODL / IJN: [id number] /
--- NOTE | 2020-04-24 21:25 | PN ---
PROGRESS NOTE DATE OF SERVICE: 04/24/2020 Patient is a 45-year-old pleasant white female with a history of severe Crohn's colitis diagnosed December of 2018, was admitted to the hospital with intraabdominal abscess extending onto the anterior abdominal wall abscess. She did not respond to IV antibiotics in the last three weeks and, hence, she underwent subtotal colectomy with ileostomy yesterday by Dr. Welch. She is complaining of diffuse abdominal pain. She denies any nausea, vomiting. Requesting for more pain medications. She remains n.p.o. PHYSICAL EXAMINATION: Appears comfortable. No obvious distress. VITAL SIGNS: Stable. Blood pressure 102/63, pulse is 70, temperature 98.7. HEENT examination unremarkable. Conjunctivae pink. Sclerae anicteric. Oral cavity no lesions. NECK: No JVD or lymph node enlargement. CHEST: Clear to auscultation. HEART: Regular rate and rhythm. ABDOMEN: Slightly distended, diffusely tender. EXTREMITIES: No pedal edema. NEUROLOGIC: Alert and oriented x3. No focal deficits. LABS: WBC 7.6, hemoglobin 9.3, platelets 527. Rest of the basic metabolic panel is within normal limits. IMPRESSION: 1. Severe Crohn's colitis complicated with intraabdominal abscess extending onto the anterior abdominal wall, status post subtotal colectomy with drainage of the abscess with drain placement and ileostomy, postop day #1. Patient doing reasonably well. Remains on broad-spectrum antibiotics. 2. Anemia with a hemoglobin of 9.3 g/dL secondary to anemia of chronic disease. 3. Mild hyponatremia. RECOMMENDATION: 1. Continue with broad-spectrum antibiotics. 2. Management per Surgery. 3. Repeat labs in the morning. 4. We will follow with you closely. Thank you for this consultation. MMODL / IJN: [id number] /
[2020-04-25] MEDS: D5-0.45% NACL WITH KCL 20MEQ/L 1,000 ML IV SCH ×3 (02:20→18:14)
[2020-04-25] MEDS: KETOROLAC 30 MG/ML 1 ML VIAL IVP PRN ×4 (05:53→22:50)
[2020-04-25 07:31] LABS: HCT 26.3 % (34.0-46.0); HGB 7.9 gm/dL (11.4-16.0); Hypochromasia Marked; MCH 25.9 pg (25.0-35.0); MCV 86.6 fL (80.0-100.0); Mean Platelet Volume 6.6; Platelet Count 480 k/uL (150-450); RBC 3.03 m/uL (3.80-5.40); RDW 15.6 % (11.5-15.5); WBC 3.9 k/uL (3.8-10.6)
[2020-04-25 07:51] LABS: African American GFR (CKD) >90 (>60 ml/min/1.73 sqM); Anion Gap 2 mmol/L; Blood Urea Nitrogen <2 mg/dL (7-17); Calcium 7.7 mg/dL (8.4-10.2); Carbon Dioxide 28 mmol/L (22-30); Chloride 104 mmol/L (98-107); Glucose 119 mg/dL (74-99); Non-African American GFR(CKD) >90 (>60 ml/min/1.73 sqM); Potassium 4.1 mmol/L (3.5-5.1); Sodium 134 mmol/L (137-145)
[2020-04-25] MEDS: PANTOPRAZOLE 40 MG TABLET PO SCH ×2 (08:00→18:12)
[2020-04-25] MEDS: HEPARIN SODIUM,PORCINE 5,000 UNIT/ML 1 ML VIAL SQ SCH ×2 (08:01→22:50)
[2020-04-25] MEDS: PIPERACILLIN-TAZOBACTAM 3.375 GM in SODIUM CHLORIDE 0.9% 100 ML IVPB SCH ×3 (08:01→22:51)
[2020-04-25] MEDS: NICOTINE 14MG/24HR PATCH TRANSDERM SCH (08:19)
[2020-04-25] MEDS: HYOSCYAMINE SULFATE 0.125 MG TAB PO SCH ×3 (08:45→22:50)
[2020-04-25] MEDS: HYDROmorphone 1 MG/ML 1 ML SYRINGE IVP PRN ×3 (08:49→21:07)
--- NOTE | 2020-04-25 09:26 | PN ---
PROGRESS NOTE DATE OF SERVICE: April 25, 2020 Patient is a 45-year-old pleasant white female admitted to hospital with Crohn's colitis complicated with intraabdominal abscess and anterior wall abdominal abscess. She underwent subtotal colectomy with ileostomy and drainage of abscess. She complains of abdominal pain, does not feel good, needing pain medications quite frequently. Some nausea but no emesis. Surgery following the patient closely. PHYSICAL EXAMINATION: Appears comfortable. Blood pressure 106/68, pulse rate 60, temperature 97.5. HEENT examination unremarkable. Conjunctivae pink. Sclerae anicteric. Oral cavity no lesions. Neck no JVD or lymph node enlargement. Chest was clear to auscultation. HEART: Regular rate and rhythm. ABDOMEN is slightly distended. There was mild diffuse tenderness. Ileostomy in place. Extremities no pedal edema. Neurologic: Alert and oriented x3. No focal deficits. LABS: WBC 3.9, hemoglobin 7.5, platelets 418. Rest of the labs are within normal limits. IMPRESSION: Severe Crohn's colitis complicated with intraabdominal abscess, status post subtotal colectomy with drainage of the abscess/ileostomy. Patient gradually improving. She is postop day #2. RECOMMENDATIONS: 1. Continue broad-spectrum antibiotics. 2. Management per surgical team. 3. Monitor labs closely. 4. We will follow with you. Thank you for this consultation. MMODL / IJN: [id number] /
--- NOTE | 2020-04-25 10:52 | P.PN ---
Subjective Progress Note Date: 04/25/20 Principal diagnosis: Crohn's Patient doing better today. Her pain is improved. White blood cell count 3.9. She is afebrile. No significant ostomy function yet. Objective - Vital Signs Vital signs: Vital Signs Temp 97.5 F L 04/25/20 08:25 Pulse 60 04/25/20 08:25 Resp 17 04/25/20 08:25 BP 106/68 04/25/20 08:25 Pulse Ox 98 04/25/20 08:25 Intake & Output 04/24/20 04/25/20 04/25/20 18:59 06:59 18:59 Output Total 480 430 Balance -480 -430 Output: Drainage 30 30 Left ABDOMEN 30 30 Urine 450 400 Uretheral (Travis) 450 Other: Voiding Method Indwelling Catheter Indwelling Catheter Indwelling Catheter - Exam Abdomen: Soft, nondistended, surgical site tenderness noted, ostomy pink - Labs CBC & Chem 7: 04/25/20 07:12 04/25/20 07:12 Labs: Abnormal Lab Results - Last 24 Hours (Table) 04/25/20 04/25/20 Range/Units 07:12 07:12 RBC 3.03 L (3.80-5.40) m/uL Hgb 7.9 L (11.4-16.0) gm/dL Hct 26.3 L (34.0-46.0) % MCHC 30.0 L (31.0-37.0) g/dL RDW 15.6 H (11.5-15.5) % Plt Count 480 H (150-450) k/uL Sodium 134 L (137-145) mmol/L BUN <2 L (7-17) mg/dL Creatinine 0.34 L (0.52-1.04) mg/dL Glucose 119 H (74-99) mg/dL Calcium 7.7 L (8.4-10.2) mg/dL Microbiology - Last 24 Hours (Table) 04/23/20 10:27 Gram Stain - Preliminary Abdomen Wound Culture - Preliminary Assessment and Plan (1) Crohn disease Narrative/Plan: Patient seems to be doing better today. Continue clear liquids. Increase activity. Current Visit: No Status: Acute Code(s): K50.90 - CROHN'S DISEASE, UNSPECIFIED, WITHOUT COMPLICATIONS SNOMED Code(s): 18152227
[2020-04-25] MEDS: SODIUM CHLORIDE 0.9% 1,000 ML IV SCH (11:47)
[2020-04-25] MEDS: ANIDULAFUNGIN 100 MG in SODIUM CHLORIDE 0.9% 100 ML IVPB SCH (12:10)
--- NOTE | 2020-04-25 14:00 | P.PN ---
Subjective 45-year-old female patient is admitted for intra-abdominal abscessfailed outpatient antibiotic therapy is admitted for IV antibiotics and further vi olation original surgery patient may require x-ray laparotomy and drainage of abscess.patient is presently on metronidazole vancomycin and antifungals infectious disease general surgery and gastroenterology of following the patient patient does have history of Crohn's diseasethe patient still has abdominal pain but bit better. 04/21/2020 Patient pain is better controlled. Plan is subtotal colectomy on Sunday. 04/22/2020 Patient is seen and evaluated and follow-up is currently maintained on IV antibiotics in the form of Flagyl and Zosyn and will continue at this time. Patient's sodium is 133 and potassium is improved at 3.7 today. Patient is scheduled to undergo subtotal colectomy with surgery tomorrow for an abdominal wall abscess. Patient denies any chest pain, shortness of breath, or palpitations. Patient is afebrile. No reports of nausea or vomiting and patient is tolerating diet. Patient will be nothing by mouth tonight. 04/23/2020 She was seen in follow-up today and undergoing incision and drainage of the abdominal abscess along with subtotal colectomy this morning. Patient has been nothing by mouth with no acute overnight issues. Patient is maintained on Eraxis and Zosyn and will continue. Infectious disease is following. Will await cultures from abdominal wall abscess. Patient continues to have abdominal discomfort and was tearful this morning about the procedure. Currently no reports of chest pain, shortness of breath, or palpitations. Patient is a febrile. No reports of nausea or vomiting and patient has been nothing by mouth. Sodium remains at 133. Potassium is 3.3 and will be replaced today. Current hemoglobin is 8.1. 04/24/2020 Patient is still having severe crampy abdominal pain patient is already on Levsin patient is also receiving Dilaudid patient was started on Toradol. Patient didn't pass gas yet. Patient has a colostomy bag in place. 04/25/2020 Patient pain is bit better today still didn't not passing gas, has some bloody output from the colostomy bag. Constitutional: Denied any fatigue denied any fever. Cardio vascular: denied any chest pain, palpitations Gastrointestinal as mentioned in HPI Pulmonary: Denied any shortness of breath cough Neurologic denied any new focal deficits All inpatient medications were reviewed and appropriate changes in these medications as dictated in the interval history and assessment and plan. Objective - Vital Signs Vital signs: Vital Signs Temp 97.5 F L 04/25/20 08:25 Pulse 60 04/25/20 08:25 Resp 17 04/25/20 08:25 BP 106/68 04/25/20 08:25 Pulse Ox 98 04/25/20 08:25 Intake & Output 04/24/20 04/25/20 04/25/20 18:59 06:59 18:59 Output Total 480 430 Balance -480 -430 Weight 66.678 kg Output: Drainage 30 30 Left ABDOMEN 30 30 Urine 450 400 Uretheral (Travis) 450 Other: Voiding Method Indwelling Catheter Indwelling Catheter Indwelling Catheter - Exam GENERAL: The patient is alert and oriented x3, not in any acute distress. Patient appears to be in severe pain Well developed, well nourished. HEENT: Pupils are round and equally reacting to light. EOMI. No scleral icterus. No conjunctival pallor. Normocephalic, atraumatic. No pharyngeal erythema. No thyromegaly. CARDIOVASCULAR: S1 and S2 present. No murmurs, rubs, or gallops. PULMONARY: Chest is clear to auscultation, no wheezing or crackles. ABDOMEN: Soft, Mild tenderness in the left upper quadrant and left lower quadrant area nondistended, normoactive bowel sounds. No palpable organomegaly. Patient has a colostomy bag MUSCULOSKELETAL: No joint swelling or deformity. EXTREMITIES: No cyanosis, clubbing, or pedal edema. NEUROLOGICAL: Gross neurological examination did not reveal any focal deficits. SKIN: No rashes. - Labs CBC & Chem 7: 04/25/20 07:12 04/25/20 07:12 Labs: Abnormal Lab Results - Last 24 Hours (Table) 04/25/20 04/25/20 Range/Units 07:12 07:12 RBC 3.03 L (3.80-5.40) m/uL Hgb 7.9 L (11.4-16.0) gm/dL Hct 26.3 L (34.0-46.0) % MCHC 30.0 L (31.0-37.0) g/dL RDW 15.6 H (11.5-15.5) % Plt Count 480 H (150-450) k/uL Sodium 134 L (137-145) mmol/L BUN <2 L (7-17) mg/dL Creatinine 0.34 L (0.52-1.04) mg/dL Glucose 119 H (74-99) mg/dL Calcium 7.7 L (8.4-10.2) mg/dL Microbiology - Last 24 Hours (Table) 04/23/20 10:27 Gram Stain - Preliminary Abdomen Wound Culture - Preliminary Gram Neg Bacilli Assessment and Plan Plan: -intra-abdominal abscess: Patient Is maintained on Eraxis and Zosyn and will continue at this time. 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 Although sodium remained stable at around 133 -nicotine abuse: Counseling was provided
--- NOTE | 2020-04-25 23:06 | P.PN ---
Progress Note - Text Progress Note Date: 04/25/20 REASON FOR FOLLOWUP: Abdominal abscess. INTERVAL HISTORY: Patient remains to be afebrile. Patient is breathing comfortably. Abdominal pain is currently controlled with the pain medication. No chest pain, shortness of breath or cough. PHYSICAL EXAMINATION: Blood pressure 115/70 with a pulse of 70, temperature is 97.5. She is 98% on room air. General description is a middle-aged female lying in bed in no distress. Respiratory system: Unlabored breathing, clear to auscultation anteriorly. Heart S1, S2. Regular rate and rhythm. Abdomen soft, mildly tender. LABS: The abdominal culture with gram-negative, ID sensitivity are currently pending. DIAGNOSTIC IMPRESSION AND PLAN: Patient with abdominal abscess with complicated Crohn's disease status post subtotal colectomy, drainage of the abscess. Cultures are currently pending. Patient Will be continued with the Zosyn and adjusting further on the basis of culture report and clinical response
[2020-04-26] MEDS: D5-0.45% NACL WITH KCL 20MEQ/L 1,000 ML IV SCH ×3 (02:27→20:39)
[2020-04-26] MEDS: HYDROmorphone 1 MG/ML 1 ML SYRINGE IVP PRN ×2 (02:27→07:45)
[2020-04-26] MEDS: KETOROLAC 30 MG/ML 1 ML VIAL IVP PRN ×3 (05:06→17:45)
[2020-04-26] MEDS: HYOSCYAMINE SULFATE 0.125 MG TAB PO SCH ×3 (07:44→23:08)
[2020-04-26] MEDS: PANTOPRAZOLE 40 MG TABLET PO SCH ×2 (07:44→17:46)
[2020-04-26] MEDS: HEPARIN SODIUM,PORCINE 5,000 UNIT/ML 1 ML VIAL SQ SCH ×2 (07:45→20:38)
[2020-04-26] MEDS: NICOTINE 14MG/24HR PATCH TRANSDERM SCH (07:45)
[2020-04-26] MEDS: PIPERACILLIN-TAZOBACTAM 3.375 GM in SODIUM CHLORIDE 0.9% 100 ML IVPB SCH ×3 (07:45→23:08)
[2020-04-26] MEDS: HYDROmorphone 0.5 MG/0.5 ML SYRINGE IVP PRN ×3 (11:48→21:41)
[2020-04-26] MEDS: ANIDULAFUNGIN 100 MG in SODIUM CHLORIDE 0.9% 100 ML IVPB SCH (11:48)
--- NOTE | 2020-04-26 13:59 | P.PN ---
Progress Note - Text Progress Note Date: 04/26/20 The patient feels better today. She has minimal output through her ileostomy. On exam her vital signs are stable. Abdomen soft. Incision site is clean dry intact. JAVY drain has some serosanguineous fluid. Status post subtotal clipped. Patient will have her diet advanced as tolerated. We'll remove her Travis catheter today.
--- NOTE | 2020-04-26 14:48 | P.PN ---
Subjective Progress Note Date: 04/26/20 Principal diagnosis: 45-year-old female patient is admitted for intra-abdominal abscessfailed outpatient antibiotic therapy is admitted for IV antibiotics and further violation original surgery patient may require x-ray laparotomy and drainage of abscess.patient is presently on metronidazole vancomycin and antifungals infectious disease general surgery and gastroenterology of following the patient patient does have history of Crohn's diseasethe patient still has abdominal pain but bit better. 04/21/2020 Patient pain is better controlled. Plan is subtotal colectomy on Sunday. Constitutional: Denied any fatigue denied any fever. Cardio vascular: denied any chest pain, palpitations Gastrointestinal as mentioned in HPI Pulmonary: Denied any shortness of breath cough Neurologic denied any new focal deficits 04/22/2020 Patient is seen and evaluated and follow-up is currently maintained on IV antibiotics in the form of Flagyl and Zosyn and will continue at this time. Patient's sodium is 133 and potassium is improved at 3.7 today. Patient is scheduled to undergo subtotal colectomy with surgery tomorrow for an abdominal wall abscess. Patient denies any chest pain, shortness of breath, or palpitations. Patient is afebrile. No reports of nausea or vomiting and patient is tolerating diet. Patient will be nothing by mouth tonight. 04/23/2020 She was seen in follow-up today and undergoing incision and drainage of the abdominal abscess along with subtotal colectomy this morning. Patient has been nothing by mouth with no acute overnight issues. Patient is maintained on Eraxis and Zosyn and will continue. Infectious disease is following. Will await cultures from abdominal wall abscess. Patient continues to have abdominal discomfort and was tearful this morning about the procedure. Currently no reports of chest pain, shortness of breath, or palpitations. Patient is afebrile. No reports of nausea or vomiting and patient has been nothing by elba th. Sodium remains at 133. Potassium is 3.3 and will be replaced today. Current hemoglobin is 8.1. 04/24/2020 Patient is still having severe crampy abdominal pain patient is already on Levsin patient is also receiving Dilaudid patient was started on Toradol. Patient didn't pass gas yet. Patient has a colostomy bag in place. 04/25/2020 Patient pain is bit better today still didn't not passing gas, has some bloody output from the colostomy bag. Constitutional: Denied any fatigue denied any fever. Cardio vascular: denied any chest pain, palpitations Gastrointestinal as mentioned in HPI Pulmonary: Denied any shortness of breath cough Neurologic denied any new focal deficits All inpatient medications were reviewed and appropriate changes in these medications as dictated in the interval history and assessment and plan. 04/26/2020 Patient is seen and evaluated and follow-up currently sitting up in the chair after just meeting with Brittney Morales ostomy nurse. Patient received some education and guidance on ostomy care. Patient states she is passing some gas and liquid brown stool was noted. Patient did perform an ostomy bag change with drainage. JAVY drain noted with serosanguineous fluid. Patient is currently maintained on clear liquids and tolerating with no reports of nausea or vomiting noted. Diet will be advanced today. Indwelling Travis catheter to be removed today. Patient states she is getting up and walking around. Wound cultures finalized showing pseudomonas aeruginosa and infectious disease is following. Patient is maintained on Zosyn and will continue at this time. Patient will likely transition to oral antibiotics upon discharge. Patient continues on requesting narcotics often for abdominal discomfort. No reports of chest pain, shortness of breath, or palpitations. Patient is afebrile. No reports of nausea or vomiting as mentioned previously. Objective - Vital Signs Vital signs: Vital Signs Temp 97.5 F L 04/26/20 07:49 Pulse 68 04/26/20 07:49 Resp 16 04/26/20 07:49 BP 110/71 04/26/20 07:49 Pulse Ox 98 04/26/20 07:49 Intake & Output 04/25/20 04/26/20 04/26/20 18:59 06:59 18:59 Output Total 900 1135 500 Balance -900 -1135 -500 Weight 66.678 kg 66.678 kg Output: Drainage 35 Left ABDOMEN 35 Urine 900 900 500 Uretheral (Travis) 500 Stool 200 Other: Voiding Method Indwelling Catheter Indwelling Catheter Indwelling Catheter # Voids 1 - Exam GENERAL: The patient is alert and oriented x3, not in any acute distress. Well developed, well nourished. HEENT: Pupils are round and equally reacting to light. EOMI. No scleral icterus. No conjunctival pallor. Normocephalic, atraumatic. No pharyngeal erythema. No thyromegaly. CARDIOVASCULAR: S1 and S2 present. No murmurs, rubs, or gallops. PULMONARY: Chest is clear to auscultation, no wheezing or crackles. ABDOMEN: Soft, Mild tenderness upon palpation, nondistended, normoactive bowel sounds. No palpable organomegaly. Patient has a colostomy bag, JAVY drain also noted with serosanguineous fluid MUSCULOSKELETAL: No joint swelling or deformity. EXTREMITIES: No cyanosis, clubbing, or pedal edema. NEUROLOGICAL: Gross neurological examination did not reveal any focal deficits. SKIN: No rashes. - Labs CBC & Chem 7: 04/25/20 07:12 04/25/20 07:12 Labs: Microbiology - Last 24 Hours (Table) 04/23/20 10:27 Gram Stain - Final Abdomen Wound Culture - Final Pseudomonas aeruginosa 04/23/20 10:27 Anaerobic Culture - Preliminary Abdomen Assessment and Plan Assessment: -intra-abdominal abscess: Patient Is maintained on Eraxis and Zosyn and will continue at this time. Wound cultures finalized showing Pseudomonas aeruginosa. Infectious disease following. -Status post incision and drainage of abdominal wall abscess along with subtotal colectomy. Surgery following -Crohn's disease patient is on immunotherapy -Anemia of chronic disease -hyponatremia: hyponatremia appears to be chronic and probably SIADH from pain, Improving. Current sodium is 134 -nicotine abuse: Counseling was provided Plan: Continue current medications, management, and symptomatic treatment. Patient wound cultures finalized showing pseudomonas aeruginosa and appreciate antibiotics recommendations from infectious disease. Will likely transition to oral antibiotics upon discharge. Surgery following closely along with GI and infectious disease. Further recommendations to follow. Case management following and arranging for home care in the outpatient setting. Patient met with ostomy nurse today and received education. Further recommendations to follow. Possible discharge in 24 hours.
[2020-04-26] MEDS: HYDROcodone/APAP 5-325MG 1 EACH TAB PO PRN (14:59)
--- NOTE | 2020-04-26 22:31 | PN ---
PROGRESS NOTE DATE OF SERVICE: 04/26/2020 REASON FOR FOLLOWUP: Abdominal abscess. INTERVAL HISTORY: The patient is currently afebrile. The patient is breathing comfortably. The patient denies having any chest pain or shortness of breath or cough. No nausea or vomiting. Abdominal pain is currently controlled. No diarrhea. PHYSICAL EXAMINATION: Blood pressure is 106/70 with a pulse of 74, temperature 97.9. She is 97% on room air. General description is a middle-aged female lying in bed in no distress. RESPIRATORY SYSTEM: Unlabored breathing. Clear to auscultation anteriorly. HEART: S1, S2. Regular rate and rhythm. ABDOMEN: Soft. Incision is clean. No guarding. No rigidity. LABS: Hemoglobin 7.9, white count 3.9, BUN of 2, creatinine 0.34. Abdominal culture with Pseudomonas aeruginosa. DIAGNOSTIC IMPRESSION AND PLAN: Patient with abdominal abscess, status post surgical drainage. Culture now showing Pseudomonas aeruginosa, for which the patient is currently covered with Zosyn. Plan is to finish with a short course of oral antibiotics. Overall clinical improvement. Continue supportive care. MMODL / IJN: [id number] /
[2020-04-27] MEDS: HYDROmorphone 0.5 MG/0.5 ML SYRINGE IVP PRN ×3 (00:26→07:41)
[2020-04-27] MEDS: D5-0.45% NACL WITH KCL 20MEQ/L 1,000 ML IV SCH ×2 (02:32→10:15)
[2020-04-27] MEDS: KETOROLAC 30 MG/ML 1 ML VIAL IVP PRN ×4 (02:34→22:35)
--- NOTE | 2020-04-27 07:12 | P.PN ---
Subjective Progress Note Date: 04/26/20 Principal diagnosis: Crohn's colitis, abscess of the abdominal wall, abdominal pain The patient is seen lying in bed she is postop day #3 after subtotal colectomy with drainage of abscess and end ileostomy formation. She is reporting output from her ostomy with diet advance today. Objective - Vital Signs Vital signs: Vital Signs Temp 97.5 F L 04/26/20 07:49 Pulse 68 04/26/20 07:49 Resp 16 04/26/20 07:49 BP 110/71 04/26/20 07:49 Pulse Ox 98 04/26/20 07:49 Intake & Output 04/25/20 04/26/20 04/26/20 18:59 06:59 18:59 Output Total 900 1135 500 Balance -900 -1135 -500 Weight 66.678 kg 66.678 kg Output: Drainage 35 Left ABDOMEN 35 Urine 900 900 500 Uretheral (Travis) 500 Stool 200 Other: Voiding Method Indwelling Catheter Indwelling Catheter Indwelling Catheter # Voids 1 2 - Exam On physical examination, patient appears comfortable in no apparent distress. HEAD: Normocephalic, atraumatic. EYES: No scleral icterus. No conjunctival injection. MOUTH: No lesions, tongue midline. NECK: Trachea midline, no gross abnormalities. ABDOMEN: Soft, ostomy appears clean/dry/intact with some output noted. Bowel sounds are positive. No organomegaly. No guarding or rigidity. EXTREMITIES: No pedal edema. SKIN: No rashes, no jaundice. NEUROLOGIC: Alert and oriented x3. No focal deficits. - Labs CBC & Chem 7: 04/25/20 07:12 04/25/20 07:12 Labs: Microbiology - Last 24 Hours (Table) 04/23/20 10:27 Gram Stain - Final Abdomen Wound Culture - Final Pseudomonas aeruginosa 04/23/20 10:27 Anaerobic Culture - Preliminary Abdomen Assessment and Plan (1) Abscess of abdominal wall Narrative/Plan: 45-year-old female with a history of severe Crohn's colitis started on Remicade infusions recently been seen in the hospital for abdominal pain and findings of a left lower abdominal wall abscess which was treated with aspiration of 10 mL of fluid from the abscess with either service unable to place drain has emesis was not large enough at that time. Patient was on presentation antibiotic therapies and discharged just a few days ago to complete antibiotic therapy. However the patient developed fevers with associated chills and riders and pre sented back to the hospital as instructed for further treatment. Computed tomography scan on current admission showed a left lower abdominal wall abscess slightly increased in size from prior computed tomography scan evaluation. Currently she has been placed on broad-spectrum antibiotic therapy and antifungal therapy by the infectious disease service and is status post subtotal colectomy with drainage of the abscess and end ileostomy formation. Current Visit: Yes Status: Acute Code(s): L02.211 - CUTANEOUS ABSCESS OF ABDOMINAL WALL SNOMED Code(s): 20610085 (2) Crohn disease Current Visit: No Status: Acute Code(s): K50.90 - CROHN'S DISEASE, UNSPECIFIED, WITHOUT COMPLICATIONS SNOMED Code(s): 42171603 (3) LLQ abdominal pain Current Visit: No Status: Acute Code(s): R10.32 - LEFT LOWER QUADRANT PAIN SNOMED Code(s): 600796069 Plan: Supportive care Diet advance today per the surgical service Continue broad-spectrum antibiotic therapy Appreciate recommendations by surgical service and infectious disease service Continue to monitor CBC, BMP, LFTs Follow-up with GI service once 2 weeks after discharge Thank you for allowing us to participate in the care of the patient
[2020-04-27] MEDS: HEPARIN SODIUM,PORCINE 5,000 UNIT/ML 1 ML VIAL SQ SCH ×2 (07:24→20:16)
[2020-04-27] MEDS: PANTOPRAZOLE 40 MG TABLET PO SCH ×2 (07:24→16:25)
[2020-04-27] MEDS: PIPERACILLIN-TAZOBACTAM 3.375 GM in SODIUM CHLORIDE 0.9% 100 ML IVPB SCH ×3 (07:24→23:08)
[2020-04-27] MEDS: HYOSCYAMINE SULFATE 0.125 MG TAB PO SCH ×3 (07:25→22:34)
[2020-04-27] MEDS: NICOTINE 14MG/24HR PATCH TRANSDERM SCH (07:25)
[2020-04-27 07:57] LABS: Anisocytosis Slight; HCT 25.2 % (34.0-46.0); HGB 7.2 gm/dL (11.4-16.0); Hypochromasia Marked; MCH 25.1 pg (25.0-35.0); MCHC 28.6 g/dL (31.0-37.0); MCV 87.5 fL (80.0-100.0); Mean Platelet Volume 6.7; Platelet Count 416 k/uL (150-450); RBC 2.88 m/uL (3.80-5.40); RDW 16.2 % (11.5-15.5); WBC 3.4 k/uL (3.8-10.6)
[2020-04-27 08:09] LABS: African American GFR (CKD) >90 (>60 ml/min/1.73 sqM); Anion Gap 3 mmol/L; Blood Urea Nitrogen <2 mg/dL (7-17); Calcium 8.2 mg/dL (8.4-10.2); Carbon Dioxide 26 mmol/L (22-30); Chloride 107 mmol/L (98-107); Glucose 97 mg/dL (74-99); Non-African American GFR(CKD) >90 (>60 ml/min/1.73 sqM); Potassium 4.5 mmol/L (3.5-5.1); Sodium 136 mmol/L (137-145)
[2020-04-27] MEDS ORDERED: HYDROmorphone 0.5 MG/0.5 ML SYRINGE IVP PRN (10:49)
[2020-04-27] MEDS: HYDROcodone/APAP 7.5-325MG 1 EACH TAB PO PRN ×3 (11:20→20:16)
[2020-04-27] MEDS: ANIDULAFUNGIN 100 MG in SODIUM CHLORIDE 0.9% 100 ML IVPB SCH (11:21)
--- NOTE | 2020-04-27 12:33 | P.PN ---
Progress Note - Text Progress Note Date: 04/27/20 The patient is doing better. She states her pain is improved. On exam vital signs are stable. Abdomen soft. Ileostomy is functional. Patient will have her IV hep-locked. We discussed with discharge home tomorrow.
--- NOTE | 2020-04-27 12:56 | PN ---
PROGRESS NOTE DATE OF SERVICE: 04/27/2020 REASON FOR FOLLOWUP: Abdominal abscess, Pseudomonas. INTERVAL HISTORY: The patient is currently afebrile. The patient is feeling better. Breathing comfortably. Overall pain and discomfort has improved. She is able to tolerate her diet. No chest pain, shortness of breath or cough. PHYSICAL EXAMINATION: Blood pressure 114/71 with a pulse of 66, temperature 97.6, she is 99% on room air. General description is a middle-aged female, lying in bed in no distress. RESPIRATORY SYSTEM: Unlabored breathing, clear to auscultation anteriorly. HEART: S1, S2. Regular rate and rhythm. ABDOMEN: Soft, no tenderness. LABS: Hemoglobin 7.8, white count 3.4, creatinine 0.36. Abdominal culture with Pseudomonas aeruginosa, sensitive pathogen. DIAGNOSTIC IMPRESSION AND PLAN: Patient with abdominal abscess status post surgical drainage and subtotal colectomy. The patient is currently on Zosyn. Plan on Cipro and Flagyl for about a week on discharge. Questions and concerns were answered. MMODL / IJN: [id number] /
--- NOTE | 2020-04-27 15:09 | P.PN ---
Subjective Progress Note Date: 04/27/20 Principal diagnosis: 45-year-old female patient is admitted for intra-abdominal abscessfailed outpatient antibiotic therapy is admitted for IV antibiotics and further violation original surgery patient may require x-ray laparotomy and drainage of abscess.patient is presently on metronidazole vancomycin and antifungals infectious disease general surgery and gastroenterology of following the patient patient does have history of Crohn's diseasethe patient still has abdominal pain but bit better. 04/21/2020 Patient pain is better controlled. Plan is subtotal colectomy on Sunday. Constitutional: Denied any fatigue denied any fever. Cardio vascular: denied any chest pain, palpitations Gastrointestinal as mentioned in HPI Pulmonary: Denied any shortness of breath cough Neurologic denied any new focal deficits 04/22/2020 Patient is seen and evaluated and follow-up is currently maintained on IV antibiotics in the form of Flagyl and Zosyn and will continue at this time. Patient's sodium is 133 and potassium is improved at 3.7 today. Patient is scheduled to undergo subtotal colectomy with surgery tomorrow for an abdominal wall abscess. Patient denies any chest pain, shortness of breath, or palpitations. Patient is afebrile. No reports of nausea or vomiting and patient is tolerating diet. Patient will be nothing by mouth tonight. 04/23/2020 She was seen in follow-up today and undergoing incision and drainage of the abdominal abscess along with subtotal colectomy this morning. Patient has been nothing by mouth with no acute overnight issues. Patient is maintained on Eraxis and Zosyn and will continue. Infectious disease is following. Will await cultures from abdominal wall abscess. Patient continues to have abdominal discomfort and was tearful this morning about the procedure. Currently no reports of chest pain, shortness of breath, or palpitations. Patient is afebrile. No reports of nausea or vomiting and patient has been nothing by elba th. Sodium remains at 133. Potassium is 3.3 and will be replaced today. Current hemoglobin is 8.1. 04/24/2020 Patient is still having severe crampy abdominal pain patient is already on Levsin patient is also receiving Dilaudid patient was started on Toradol. Patient didn't pass gas yet. Patient has a colostomy bag in place. 04/25/2020 Patient pain is bit better today still didn't not passing gas, has some bloody output from the colostomy bag. Constitutional: Denied any fatigue denied any fever. Cardio vascular: denied any chest pain, palpitations Gastrointestinal as mentioned in HPI Pulmonary: Denied any shortness of breath cough Neurologic denied any new focal deficits All inpatient medications were reviewed and appropriate changes in these medications as dictated in the interval history and assessment and plan. 04/26/2020 Patient is seen and evaluated and follow-up currently sitting up in the chair after just meeting with Brittney Morales ostomy nurse. Patient received some education and guidance on ostomy care. Patient states she is passing some gas and liquid brown stool was noted. Patient did perform an ostomy bag change with drainage. JAVY drain noted with serosanguineous fluid. Patient is currently maintained on clear liquids and tolerating with no reports of nausea or vomiting noted. Diet will be advanced today. Indwelling Rtavis catheter to be removed today. Patient states she is getting up and walking around. Wound cultures finalized showing pseudomonas aeruginosa and infectious disease is following. Patient is maintained on Zosyn and will continue at this time. Patient will likely transition to oral antibiotics upon discharge. Patient continues on requesting narcotics often for abdominal discomfort. No reports of chest pain, shortness of breath, or palpitations. Patient is afebrile. No reports of nausea or vomiting as mentioned previously. 04/27/2020 Patient is seen in follow-up and is being closely monitored. No acute overnight issues. Patient tolerating diet and is passing gas with stool noted in the ostomy. Patient continues to be extremely anxious about going home and tearful about feeling unable to manage ostomy. Patient will meet with ostomy nurse prior to discharge. Patient will also continue with home care in the outpatient setting. Surgery and infectious disease are following. Patient will continue on oral antibiotics upon discharge. Prescription sent to the preferred pharmacy. Adjustments to pain medications have been made. Patient continues to have abdominal discomfort although states it slightly improved from yesterday. Currently no reports of chest pain, shortness of breath, or palpitations. Rianna ent is afebrile. No reports of nausea or vomiting and patient is tolerating diet. Case management following and working with patient about discharge planning needs. Objective - Vital Signs Vital signs: Vital Signs Temp 97.6 F 04/27/20 07:39 Pulse 66 04/27/20 07:39 Resp 18 04/27/20 07:39 BP 114/71 04/27/20 07:39 Pulse Ox 99 07/14/20 07:39 Intake & Output 04/26/20 04/27/20 04/27/20 18:59 06:59 18:59 Output Total 500 55 Balance -500 -55 Weight 66.678 kg Output: Drainage 55 Left ABDOMEN 55 Urine 500 Uretheral (Travis) 500 Other: Voiding Method Toilet Toilet Toilet # Voids 2 - Exam GENERAL: The patient is alert and oriented x3, not in any acute distress. Anxious. Well developed, well nourished. HEENT: Pupils are round and equally reacting to light. EOMI. No scleral icterus. No conjunctival pallor. Normocephalic, atraumatic. No pharyngeal erythema. No thyromegaly. CARDIOVASCULAR: S1 and S2 present. No murmurs, rubs, or gallops. PULMONARY: Chest is clear to auscultation, no wheezing or crackles. ABDOMEN: Soft, Mild tenderness upon palpation, nondistended, normoactive bowel sounds. No palpable organomegaly. Patient has a colostomy bag, JAVY drain also noted with serosanguineous fluid, improved from yesterday MUSCULOSKELETAL: No joint swelling or deformity. EXTREMITIES: No cyanosis, clubbing, or pedal edema. NEUROLOGICAL: Gross neurological examination did not reveal any focal deficits. SKIN: No rashes. - Labs CBC & Chem 7: 04/27/20 07:30 04/27/20 07:30 Labs: Abnormal Lab Results - Last 24 Hours (Table) 04/27/20 04/27/20 Range/Units 07:30 07:30 WBC 3.4 L (3.8-10.6) k/uL RBC 2.88 L (3.80-5.40) m/uL Hgb 7.2 L (11.4-16.0) gm/dL Hct 25.2 L (34.0-46.0) % MCHC 28.6 L (31.0-37.0) g/dL RDW 16.2 H (11.5-15.5) % Sodium 136 L (137-145) mmol/L BUN <2 L (7-17) mg/dL Creatinine 0.36 L (0.52-1.04) mg/dL Calcium 8.2 L (8.4-10.2) mg/dL Microbiology - Last 24 Hours (Table) 04/23/20 10:27 Anaerobic Culture - Final Abdomen 04/23/20 10:27 Gram Stain - Final Abdomen Wound Culture - Final Pseudomonas aeruginosa Assessment and Plan Assessment: -intra-abdominal abscess: Patient Is maintained on Eraxis and Zosyn and will continue at this time. Wound cultures finalized showing Pseudomonas aeruginosa. Infectious disease following. Patient will transition to oral Cipro and Flagyl upon discharge -Status post incision and drainage of abdominal wall abscess along with subtotal colectomy. Surgery following -Crohn's disease patient is on immunotherapy -Anemia of chronic disease -hyponatremia: hyponatremia appears to be chronic and probably SIADH from pain, Improving. Current sodium is 136 -nicotine abuse: Counseling was provided Plan: Continue current medications, management, and symptomatic treatment. Patient wound cultures finalized showing pseudomonas aeruginosa and will transition to oral Cipro and Flagyl upon discharge. Infectious disease following along with surgery and GI. Further recommendations to follow. Case management following and arranging for home care in the outpatient setting. Patient to meet with ostomy nurse in the morning prior to discharge. Patient will be discharged in the morning.
[2020-04-28] MEDS: HYDROcodone/APAP 7.5-325MG 1 EACH TAB PO PRN (06:43)
[2020-04-28 08:01] VITALS: RESP 17
[2020-04-28] MEDS: NICOTINE 14MG/24HR PATCH TRANSDERM SCH (08:28)
[2020-04-28] MEDS: HYOSCYAMINE SULFATE 0.125 MG TAB PO SCH ×2 (08:29→17:21)
[2020-04-28] MEDS: HEPARIN SODIUM,PORCINE 5,000 UNIT/ML 1 ML VIAL SQ SCH (08:29)
[2020-04-28] MEDS: PANTOPRAZOLE 40 MG TABLET PO SCH ×2 (08:29→17:21)
[2020-04-28] MEDS: PIPERACILLIN-TAZOBACTAM 3.375 GM in SODIUM CHLORIDE 0.9% 100 ML IVPB SCH ×2 (08:29→17:21)
[2020-04-28] MEDS: ANIDULAFUNGIN 100 MG in SODIUM CHLORIDE 0.9% 100 ML IVPB SCH (12:50)
[2020-04-28] MEDS: KETOROLAC 30 MG/ML 1 ML VIAL IVP PRN ×2 (13:06→17:21)
--- NOTE | 2020-04-28 13:28 | P.DS ---
Providers Date of admission: 04/16/20 23:01 Expected date of discharge: 04/28/20 Attending physician: Elizabeth Samson Consults: 04/16/20 23:03 Consult Physician Stat Consulting Provider: Lobo Welch Consult Reason/Comments: Abdominal wall abscess Do you want consulting provider notified?: Yes 04/17/20 12:30 Consult Physician Routine Consulting Provider: Kush Kent Consult Reason/Comments: recurrent abscess Do you want consulting provider notified?: Yes 04/17/20 12:31 Consult Physician Routine Consulting Provider: Sadie Kelley Consult Reason/Comments: recurrent abdominal abscess/Chron's. Do you want consulting provider notified?: Yes Primary care physician: Albertina Grider Hospital Course: This a 45-year-old female who was admitted hospital with severe exacerbation Crohn's disease. Patient developed a abscess. Patient underwent subtotal colectomy. Patient did well postoperatively. Please see chart for details. Procedures: Subtotal colectomy with ileostomy Patient Condition at Discharge: Good Plan - Discharge Summary Discharge Rx Participant: Yes New Discharge Prescriptions: New Ciprofloxacin HCl [Cipro] 500 mg PO BID 7 Days #14 tab metroNIDAZOLE [Flagyl] 500 mg PO Q8HR 7 Days #21 tab Nicotine 14Mg/24Hr Patch [Habitrol] 1 patch TRANSDERM DAILY #20 patch HYDROcodone/APAP 7.5-325MG [[place] 7.5-325] 1 each PO Q4H PRN #12 tab PRN Reason: Pain Docusate [Colace] 100 mg PO BID #20 capsule HYDROcodone/APAP 5-325MG [[place] 5-325] 1 tab PO Q6HR PRN #10 tab PRN Reason: Pain Continue Ferrous Sulfate [Iron (65 MG Elemental)] 325 mg PO DAILY Acetaminophen Tab [Tylenol] 650 - 975 mg PO Q4H PRN PRN Reason: Pain Or Fever > 100.5 inFLIXimab [Remicade] 100 mg IV Q14D Hyoscyamine Sulfate [Levsin] 0.125 mg PO TID@0900,1600,2300 Discontinued Amoxic-Pot Clav 875-125Mg [Augmentin 875-125] 1 tab PO Q12HR 5 Days #10 tab Discharge Medication List Ferrous Sulfate [Iron (65 MG Elemental)] 325 mg PO DAILY 12/15/19 [History] Acetaminophen Tab [Tylenol] 650 - 975 mg PO Q4H PRN 04/08/20 [History] inFLIXimab [Remicade] 100 mg IV Q14D 04/08/20 [History] Hyoscyamine Sulfate [Levsin] 0.125 mg PO TID@0900,1600,2300 04/16/20 [History] Ciprofloxacin HCl [Cipro] 500 mg PO BID 7 Days #14 tab 04/27/20 [Rx] HYDROcodone/APAP 7.5-325MG [Floriss[place] 7.5-325] 1 each PO Q4H PRN #12 tab 04/27/20 [Rx] Nicotine 14Mg/24Hr Patch [Habitrol] 1 patch TRANSDERM DAILY #20 patch 04/27/20 [Rx] metroNIDAZOLE [Flagyl] 500 mg PO Q8HR 7 Days #21 tab 04/27/20 [Rx] Docusate [Colace] 100 mg PO BID #20 capsule 04/28/20 [Rx] HYDROcodone/APAP 5-325MG [[place] 5-325] 1 tab PO Q6HR PRN #10 tab 04/28/20 [Rx] Follow up Appointment(s)/Referral(s): [facility], [NON-STAFF] - Jill Boyce NPC [Nurse Practitioner] - 05/07/20 11:15 am Albertina Grider MD [Primary Care Provider] - 05/04/20 1:00 pm Lobo Welch MD [STAFF PHYSICIAN] - 05/06/20 1:50 pm Ambulatory/Diagnostic Orders: Basic Metabolic Panel [LAB.AMB] Time Frame: 3 Days, Location: None Selected Complete Blood Count w/diff [LAB.AMB] Time Frame: 3 Days, Location: None Selected Patient Instructions/Handouts: Ileostomy Care (ED), Crohn Disease (ED), Abscess (ED), Ileostomy Diet (ED), Ileostomy Diet (GEN) Activity/Diet/Wound Care/Special Instructions: Antibiotic prescription sent to her pharmacy. Pain medication prescription on the chart Ileostomy care Recommendations for home: Last pouching system change: 04.28.2020 Ms Magallon will be sent home the following ileostomy products: [employer] moldable flange #[id number] (3 for home) [employer] Pouching system #[id number] (with filter) (three for home) No sting prep pads (12 for home) Ostomy powder (1) Mrs Acuña to empty the pouch when it is 1/2 to 1/3 full in the bathroom the entire pouching system is to be changed every three to five days in the bench worker binding time before 9AM Home Health Mrs Acuña will be receiving additional samples once home from [facility] that should get her through 6 weeks of care needs. Home Health please make patient care visitis for bench worker binding since Ms Magallon is an ileostomy patient. After 2 weeks please assist with permanent script for ileosotmy supplies with [employer] [facility] [employer] until follow-up Continue current diet Continue with antibiotics for 1 week until finished Follow-up with GI in the outpatient setting Follow-up Up with primary care provider upon discharge Follow-up with surgery in 1-2 weeks Discharge Disposition: HOME WITH HOME HEALTH SERVICES
--- NOTE | 2020-04-28 15:16 | P.PN ---
Subjective 45-year-old female patient is admitted for intra-abdominal abscessfailed outpatient antibiotic therapy is admitted for IV antibiotics and further vi olation original surgery patient may require x-ray laparotomy and drainage of abscess.patient is presently on metronidazole vancomycin and antifungals infectious disease general surgery and gastroenterology of following the patient patient does have history of Crohn's diseasethe patient still has abdominal pain but bit better. 04/21/2020 Patient pain is better controlled. Plan is subtotal colectomy on Sunday. 04/22/2020 Patient is seen and evaluated and follow-up is currently maintained on IV antibiotics in the form of Flagyl and Zosyn and will continue at this time. Patient's sodium is 133 and potassium is improved at 3.7 today. Patient is scheduled to undergo subtotal colectomy with surgery tomorrow for an abdominal wall abscess. Patient denies any chest pain, shortness of breath, or palpitations. Patient is afebrile. No reports of nausea or vomiting and patient is tolerating diet. Patient will be nothing by mouth tonight. 04/23/2020 She was seen in follow-up today and undergoing incision and drainage of the abdominal abscess along with subtotal colectomy this morning. Patient has been nothing by mouth with no acute overnight issues. Patient is maintained on Eraxis and Zosyn and will continue. Infectious disease is following. Will await cultures from abdominal wall abscess. Patient continues to have abdominal discomfort and was tearful this morning about the procedure. Currently no reports of chest pain, shortness of breath, or palpitations. Patient is a febrile. No reports of nausea or vomiting and patient has been nothing by mouth. Sodium remains at 133. Potassium is 3.3 and will be replaced today. Current hemoglobin is 8.1. 04/24/2020 Patient is still having severe crampy abdominal pain patient is already on Levsin patient is also receiving Dilaudid patient was started on Toradol. Patient didn't pass gas yet. Patient has a colostomy bag in place. 04/25/2020 Patient pain is bit better today still didn't not passing gas, has some bloody output from the colostomy bag. 04/28/2020 Patient is clinically doing well did have bowel movements into the colostomy bag pain is well-controlled. Cleared by general surgery to be discharged. Constitutional: Denied any fatigue denied any fever. Cardio vascular: denied any chest pain, palpitations Gastrointestinal as mentioned in HPI Pulmonary: Denied any shortness of breath cough Neurologic denied any new focal deficits All inpatient medications were reviewed and appropriate changes in these medications as dictated in the interval history and assessment and plan. Objective - Vital Signs Vital signs: Vital Signs Temp 97.4 F L 04/28/20 07:00 Pulse 63 04/28/20 07:00 Resp 17 04/28/20 08:00 BP 123/68 04/28/20 07:00 Pulse Ox 98 04/28/20 07:00 Intake & Output 04/27/20 04/28/20 04/28/20 18:59 06:59 18:59 Output Total 25 45 Balance -25 -45 Output: Drainage 25 45 Left ABDOMEN 25 45 Other: Voiding Method Toilet Toilet - Exam GENERAL: The patient is alert and oriented x3, not in any acute distress. Patient appears to be in severe pain Well developed, well nourished. HEENT: Pupils are round and equally reacting to light. EOMI. No scleral icterus. No conjunctival pallor. Normocephalic, atraumatic. No pharyngeal erythema. No thyromegaly. CARDIOVASCULAR: S1 and S2 present. No murmurs, rubs, or gallops. PULMONARY: Chest is clear to auscultation, no wheezing or crackles. ABDOMEN: Soft, Mild tenderness in the left upper quadrant and left lower quadrant area nondistended, normoactive bowel sounds. No palpable organomegaly. Patient has a colostomy bag MUSCULOSKELETAL: No joint swelling or deformity. EXTREMITIES: No cyanosis, clubbing, or pedal edema. NEUROLOGICAL: Gross neurological examination did not reveal any focal deficits. SKIN: No rashes. - Labs CBC & Chem 7: 04/27/20 07:30 04/27/20 07:30 Labs: Microbiology - Last 24 Hours (Table) 04/23/20 10:27 Anaerobic Culture - Final Abdomen Assessment and Plan Plan: -intra-abdominal abscess: Status post liquid patient is being discharged on Flagyl and Ciproing -Crohn's disease patient is on immunotherapy -Anemia of chronic disease -hyponatremia: Improved now probably SIADH from pain -nicotine abuse: Counseling was provided
[2020-04-28 16:16] VITALS: BP 113/72; PULSE 70; TEMP 98.1
--- NOTE | 2020-04-29 00:32 | P.PN ---
Progress Note - Text Progress Note Date: 04/28/20 REASON FOR FOLLOWUP: Abdominal abscess, Pseudomonas. INTERVAL HISTORY: The patient remains to be afebrile. The patient is feeling better. the patient is breathing comfortably. the patient abdominal pain and discomfort has improved. She is able to tolerate her diet. No chest pain, shortness of breath or cough. PHYSICAL EXAMINATION: Blood pressure 120/71 with a pulse of 60, temperature 97.6, she is 99% on room air. General description is a middle-aged female, lying in bed in no distress. RESPIRATORY SYSTEM: Unlabored breathing, clear to auscultation anteriorly. HEART: S1, S2. Regular rate and rhythm. ABDOMEN: Soft, no tenderness. LABS: Abdominal culture with Pseudomonas aeruginosa, sensitive pathogen. DIAGNOSTIC IMPRESSION AND PLAN: Patient with abdominal abscess status post surgical drainage and subtotal colectomy. The patient clinical improvement on Zosyn. Plan is Cipro and Flagyl for about a week on discharge. continue supportive care
--- NOTE | 2020-04-29 07:17 | CDI ---
Documentation Clarification Form Date: 04/29/2020 06:58:32 AM From: Deja Rose Phone: If you have a question about this query, please contact Elvira Panch[facility] Specialist at [phone] between 8am and 5pm. Admit Date: 04/16/2020 11:01:00 PM Patient Name: Isaura Magallon Visit Number: [id number] Discharge Date: 04/28/2020 06:58:00 PM ATTENTION: The Clinical Documentation Specialists (CDI) and [facility] Coding Staff appreciate your assistance in clarifying documentation. Please respond to the clarification below the line at the bottom and electronically sign. The CDI & [facility] Coding staff will review the response and follow-up if needed. Please note: Queries are made part of the Legal Health Record. If you have any questions, please contact the author of this message via ITS. Dr. Elizabeth Samson Per ID consult patient presented with sepsis with fever tachycardia, elevated white count with abdominal wall abscess. Dr. Weinberg documents fever, chills and rigors and sepsis in 7/5 PN. Sepsis not documented by attending. Please clarify if patient had sepsis or was this ruled out. History/Risk Factors: Crohns with abscess WBC 14.9 Lactic acid: .07 Blood cultures: No growth Abscess culture Psuedomonas Vitals signs on admission: 99.8 F, 112, 20 96/63 96% RA Other Clinical Indicators: Treatment: Subtotal Colectomy ID Consult: Sepsis Antibiotics: Zosyn and Flagyl In your professional opinion, please clarify if these findings signify one of the following conditions, whether the condition is POA, and cause, if known: Condition Sepsis ruled out SIRS, without underlying infectious process Sepsis Severe Sepsis Septic Shock Other, please specify Unable to determine SIRS Criteria (2 or more of the following may indicate SIRS): -Temperature < 96.8F (36C) or > 101.0F (38.3C) -Heart Rate > 90 bpm -Respiratory Rate > 20 breaths/min or PaCO2 < 32 mmHg -White Blood Cell Count > 12,000 or < 4,000 cells/mm3 or > 10% bands -Lactate >2.0 mmol/L (>4.0 is equivalent to septic shock) Sepsis MTDD
--- NOTE | 2020-05-07 12:18 | P.OP ---
Date of Procedure: 04/23/20 Preoperative Diagnosis: Crohn's colitis with abscess Postoperative Diagnosis: Crohn's colitis with abscess Procedure(s) Performed: Subtotal colectomy Anesthesia: SARANYA Surgeon: Lobo Welch Estimated Blood Loss (ml): 25 Pathology: other (colon) Description of Procedure: The patient's placed on the operative table in supine position. She received general anesthesia. Her abdomen was prepped and draped in sterile fashion. Patient had an abscess which was palpable through the left abdomen. A small skin incision was made over the abscess and small amount. Fluid was expressed from this. Next the abdomen was entered through a midline incision. The Bookwalter cyst wound. The descending colon appeared to be attached to the left abdominal wall. This was dissected free with blunt finger dissection. The colon was very inflamed this point. The colon appeared to be grossly diseased to the level of the proximal rectum. His HIDA perform subtotal colectomy. The terminal ileum was then transected with a GI stapler. And then the right colon was mobilized by dividing the white line of Toldt. The left colon was mobilized by dividing the white line of Toldt and then the sigmoid colon was mobilized by releasing the adhesions to the sigmoid colon. The rectum was then transected with a GI stapler. Using the Enseal device the mesentery the bowel was divided and the specimens of pathology. The ileostomy brought up through the right lower quadrant. A suitable spot for the last is chosen. And then the bowel was b rought up through the abdominal wall. The fascia was closed with looped #1 PDS suture. Skin was closed dennis. The ileostomy matured with 3-0 Vicryl suture. Patient tolerated the procedure well she will was sent to recovery in stable condition.
== END 2020-04-28 18:58 | disposition home health service (06) | DRG 854 ==
LOC: EC 20:12 → 4SSUR 23:01
PROVIDERS: ADMIT Hospitalist; ATTEND Hospitalist
PROC: 0W9F0ZX Drainage of Abdominal Wall, Open Approach, Diagnostic (ICD-10-PCS; 2020-04-23)
PROC: 0D1B0Z4 Bypass Ileum to Cutaneous, Open Approach (ICD-10-PCS; 2020-04-23)
PROC: 0DBB0ZZ Excision of Ileum, Open Approach (ICD-10-PCS; principal; 2020-04-26)
PROC: 0DBE0ZZ Excision of Large Intestine, Open Approach (ICD-10-PCS; principal; 2020-04-26)
DX: A41.52 Sepsis due to Pseudomonas (principal); K50.914 Crohn's disease, unspecified, with abscess; E44.1 Mild protein-calorie malnutrition; E22.2 Syndrome of inappropriate secretion of antidiuretic hormone; D63.8 Anemia in other chronic diseases classified elsewhere; Z71.6 Tobacco abuse counseling; F17.210 Nicotine dependence, cigarettes, uncomplicated; Z86.19 Personal history of other infectious and parasitic diseases; D47.3 Essential (hemorrhagic) thrombocythemia; Z11.59 Encounter for screening for other viral diseases; Z79.899 Other long term (current) drug therapy; Z88.8 Allergy status to other drugs, medicaments and biological substances
CPT/HCPCS: 36415; 74176; 74177; 80048; 80053; 81003; 81025; 83605; 85025; 85027; 85610; 85652; 86140; 86850; 86900; 86901; 87040; 87070; 87075; 87077; 87186; 87205; 88309; 96361; 96374; 99285